=== PATIENT | female | born 1975 | race Caucasian/White ===

== ENCOUNTER 2024-03-24 13:17 | Inpatient (IN) ==
--- NOTE | 2024-03-24 13:28 | ED Triage Note ---
Date of Service March 24, 2024 Provider in Triage Author: Arthur Rawls History of Present Illness This patient was briefly evaluated while in triage. An abbreviated physical exam was performed. This patient is a 48-year-old Female who presents to the ED for evaluation of illness. The patient reports that she has been sick since Thursday. The patient was seen at her PCPs office, and referred to the emergency department for further evaluation. The patient reports that no testing was done in the office. The patient reports weakness and bodyaches, and also has also been short of breath. The patient was 85% on room air at her PCPs office. It is currently on 2 L O2 via nasal cannula after being transferred here from EMS. Patient does have a history of asthma. Physical Exam CONSTITUTIONAL: Healthy and well nourished. HEENT: No scleral icterus or conjunctival injection. NECK: Full active range of motion without discomfort. LYMPHATICS: No cervical chain adenopathy. RESPIRATORY: Lung sounds are distant with crackles. CARDIOVASCULAR: Regular rate and rhythm with no murmurs, rubs or gallops. INTEGUMENTARY: No rash or other significant dermatologic conditions noted. HEMATOLOGIC: No ecchymosis or petechiae. PSYCHIATRIC: Positive affect. NEUROLOGIC: No focal neurologic deficits noted. Initial orders for labs and / or imaging were placed and patient was placed in the waiting area until a bed is available. Please see further documentation for the full ED course.
[2024-03-24] MEDS: ACETAMINOPHEN 500 MG TAB PO STA (14:15)
[2024-03-24 14:30] LABS: Basophils # (auto) 0.01 K/uL (0.00-0.20); Basophils % (auto) 0.1 %; Hematocrit (blood only) 39.5 % (37.0-47.0); Hemoglobin 13.2 g/dl (12.0-16.0); Immature Granulocytes # (auto) 0.05 K/uL (0.01-0.20); Immature Granulocytes % (auto) 0.5 %; Lymphocytes # (auto) 0.74 K/uL (1.20-3.40); Lymphocytes % (auto) 7.8 %; Mean Corpuscular Hemoglobin 31.2 pg (25.0-34.0); Mean Corpuscular Hgb Conc 33.4 g/dL (32.0-36.0); Mean Corpuscular Volume 93.4 fL (80.0-100.0); Mean Platelet Volume 10.4 fL (9.4-12.4); Monocytes # (auto) 0.72 K/uL (0.11-0.59); Monocytes % (auto) 7.6 %; Neutrophils # (auto) 7.98 K/uL (1.40-6.50); Platelet Count 192 K/uL (130-400); RDW Coefficient of Variation 13.8 % (11.5-14.5); RDW Standard Deviation 47.4 fL (36.4-46.3); Red Blood Count 4.23 M/uL (4.20-5.40)
[2024-03-24 14:46] LABS: Anion Gap 8 (3-11); BUN Creatinine Ratio 15.7 (10-20); Blood Urea Nitrogen 13 mg/dl (6-23); Calcium 8.5 mg/dl (8.6-10.3); Carbon Dioxide 23 mmol/L (21-32); Chloride 108 mmol/L (98-107); Glucose 130 mg/dl (70-99(Fasting)); Potassium 4.1 mmol/L (3.5-5.1); Sodium 139 mmol/L (136-145)
[2024-03-24 15:15] LABS: Adenovirus PCR Not Detected (NotDetected); Bordetella parapertussis PCR Not Detected (NotDetected); Bordetella pertussis PCR Not Detected (NotDetected); Chlamydia pneumoniae PCR Not Detected (NotDetected); Coronavirus 229E PCR Not Detected (NotDetected); Coronavirus CoV-2 (COVID19)PCR Not Detected (NotDetected); Coronavirus HKU1 PCR Not Detected (NotDetected); Coronavirus NL63 PCR Not Detected (NotDetected); Coronavirus OC43PCR Not Detected (NotDetected); Human Metapneumovirus PCR DETECTED (NotDetected); Influenza A PCR Not Detected (NotDetected); Influenza B PCR Not Detected (NotDetected); Mycoplasma pneumoniae PCR Not Detected (NotDetected); Parainfluenza Virus 1 PCR Not Detected (NotDetected); Parainfluenza Virus 2 PCR Not Detected (NotDetected); Parainfluenza Virus 3 PCR Not Detected (NotDetected); Parainfluenza Virus 4 PCR Not Detected (NotDetected); Respiratory Syncytial VirusPCR Not Detected (NotDetected); Rhinovirus/Enterovirus PCR Not Detected (NotDetected)
[2024-03-24] MEDS: ALBUT/IPRATROP 3MG/0.5MG NEB 3 ML VIAL NEB STA ×2 (16:09→18:18)
[2024-03-24] MEDS: BENZONATATE 100 MG CAPSULE PO ONE (16:10)
[2024-03-24] MEDS: SODIUM CHLORIDE 0.9% 1,000 ML IV ONE (16:10)
[2024-03-24] MEDS: dexAMETHasone**PF** 10 MG/ML VIAL IV ONE (16:10)
[2024-03-24 16:38] LABS: Albumin Level 4.2 gm/dl (3.4-5.0); Bilirubin Direct 0.1 mg/dl (0-0.2); Bilirubin,Total 0.4 mg/dl (0.2-1.0); Magnesium 1.9 mg/dl (1.7-2.4)
[2024-03-24 16:43] LABS: Alanine Aminotransferase 11 U/L (7-52); Alkaline Phosphatase 80 U/L (34-104); Aspartate Aminotransferase 16 U/L (13-39)
[2024-03-24 16:47] LABS: Troponin I High Sensitivity 10.2 pg/ml (0-14)
--- NOTE | 2024-03-24 16:58 | XRay Report ---
EXAM: XR chest 1V portable CLINICAL HISTORY: SOB BRM/SDM. TECHNIQUE: X-ray images of the chest were obtained in frontal AP projection. COMPARISON: No prior studies are available for comparison. FINDINGS: Pulmonary Parenchyma: There is evidence of bilateral mid and lower zone patchy alveolar opacities, more significant on the left side. No evidence of pleural effusion or pleural thickening. Heart and Mediastinum: Heart size is enlarged and shows hilar congestion and upper lobe diversion. Bony Thorax: Bony thorax appears intact without fractures or deformities. Soft Tissues: Soft tissues overlying the chest wall are unremarkable. IMPRESSION: 1. Bilateral upper and lower multiple patchy alveolar opacities. 2. Cardiomegaly with bilateral hilar congestion and upper lobe diversion raising concern for pulmonary edema with differential possibility of bronchopneumonia. Clinical correlation and follow-up are advised. [facility] ER was called at [phone] at 3:53 PM MODELING TEACHER, 03/24/2024 and Rosa Isela, the nurse was informed regarding the presence of significant medical medical findings. Electronically signed by Nkechi Claire 03-24-2024 4:57 PM
[2024-03-24] MEDS: MAGNESIUM SULFATE / D5W 1 GM/100 ML BAG IV STA (17:08)
[2024-03-24] MEDS: KETOROLAC TROMETHAMINE 15 MG/ML VIAL IV ONE (18:18)
[2024-03-24] MEDS: SODIUM CHLORIDE 0.9% 1,000 ML IV SCH (18:18)
--- NOTE | 2024-03-24 18:20 | Emergency Department Note ---
Impression & Plan Dyspnea, Hypoxia, URI (upper respiratory infection), Asthma exacerbation ED Provider Note ED Provider Note NAME: ALYSA ABEBE AGE:48 SEX: Female : 1975 ARRIVES VIA: private vehicle INFORMANT: Patient ED PROVIDER(s): Nighat Kirk DO CHIEF COMPLAINT: Shortness of breath, cough HPI: This is a 48-year-old female who presents emergency department due to concern for increased shortness of breath and worsening cough/cold symptoms. Patient states she first began feeling ill last weekend with some increased fatigue. She states that over the week she began to develop nasal congestion, rhinorrhea, and cough. She states only mild sore throat. She also noticed decreased appetite and some loose stools/diarrhea. She was having fevers at home as high as 104 Fahrenheit. She states possible sick contact over the holidays with other friends. Patient does have a history of asthma and does use her inhalers. No prior history of pneumonia, no prior hospitalization for her asthma. No recent travel, no leg swelling. Patient states she has been using Tylenol and Advil at home. PAST MEDICAL HISTORY:See Below PAST SURGICAL HISTORY:See Below FAMILY HISTORY:See Below SOCIAL HISTORY:See Below HOME MEDICATIONS:See Below ALLERGIES:See Below VITALS:See Below PHYSICAL EXAMINATION: GENERAL: alert, ill appearing, well nourished, no distress, non-toxic EYE EXAM: normal conjunctiva, PERRL and EOM's grossly intact OROPHARYNX: no exudate, no erythema, lips, buccal mucosa, and tongue normal and mucous membranes are moist NECK: supple, no nuchal rigidity, no adenopathy, non-tender LUNGS: Clear but decreased to auscultation. Normal chest wall mechanics, no w/r/r HEART: no murmurs, S1 normal and S2 normal ABDOMEN: abdomen soft, non-tender, normo-active bowel sounds, no masses, no rebound or guarding. BACK: Back is symmetrical on inspection and there is no deformity, no midline tenderness, no CVA tenderness. SKIN: no rashes, petechiae, orbruising UPPER EXTREMITIES: upper extremities are grossly normal. FROM, nml pulses b/l. LOWER EXTREMITIES: No pitting edema. FROM, nml pulses b/l. NEURO EXAM: Normal sensorium, cranial nerves II-XII grossly intact, normal speech, no facial droop,nogross weakness of arms, no gross weakness of legs. Gross sensation intact. No ataxia. Vital Signs: reviewed and remarkable Differential Diagnosis: pneumonia, bronchitis, COPD/Asthma exacerbation, pneumothorax, pulmonary embolism, congestive heart failure, acute coronary syndrome, as well as others were considered MEDICAL DECISION MAKING: This is a 48-year-old female who presents to the emergency department due to concern for worsening weakness, cough, shortness of breath, and URI symptoms over the last 5 days. Patient noted to be febrile on arrival and hypoxic and was placed on oxygen via nasal cannula. Labs drawn and sent, IV established, nasal swab obtained at bedside and patient monitored on telemetry. By the time of evaluation, patient had already been given IV Tylenol additionally for the fever. Nasal swab positive for human metapneumovirus. Chest x-ray added on interpreted by me at bedside. Additional LFTs and troponin added. Patient given DuoNeb here along with Tessalon Perle, IV fluids, and IV Decadron. Patient reported no improvement following this and on ambulatory trial desatted to 89% while still on oxygen. Given concern for likely asthma exacerbation from the upper respiratory infection contributing to her hypoxia and other systemic symptoms, case discussed with the hospitalist team for additional evaluation and management. I do not suspect occult PE, pericarditis/myocarditis, pericardial effusion, or acute vascular emergency. Consultation(s): 1817: Discussed with Dr. Polk, [facility] hospitalist team for additional evaluation and mgmt. ER Treatment Provided: See below Diagnostics Interpreted By Me: -Cardiac Monitoring: An order was placed for continuous cardiac monitoring. The monitor shows a rate of 86 with normal sinus rhythm. -Laboratory studies: As stated above and show below. -Imaging studies: cxr: No cardiomegaly, no pleural effusion, no focal consolidation, no wide mediastinum Triage Nursing Note Reviewed Prior/Outside Records Reviewed Past Med/Surg History Problem List Acid reflux Hypotension Obesity Insomnia Acute hypoxic respiratory failure Human metapneumovirus (hMPV) pneumonia Tobacco use Asthma PT DENIES ASTHMA, REPORTS SLEEP APNEA Sleep apnea CPAP Fibromyalgia Medical History History of depression History of asthma Fibromyalgia Asthma exacerbation Balance problem Right lumbar radiculopathy Lumbosacral radiculopathy Radicular leg pain Endometriosis Migraine without status migrainosus Genital warts History of fibromyalgia History of kidney infection Headache Headache Psoriasis Migraine without status migrainosus Headache Endometriosis Restless legs syndrome Postconcussion syndrome Pelvic pain Numbness in both legs Disc degeneration, lumbar Cognitive disorder History of heart attack X2 "MILD" - YEARS AGO - NO HX CARDIAC CATH/NO HX STENT(S) Migraines Psoriasis History of kidney stones Hiatal hernia DDD (degenerative disc disease), cervical Anxiety Family history of reaction to anesthesia GRANDFATHER - HAD HARD TIME REGROUPING HIMSELF AFTER ANESTHESIA, "HE WOULD LOSE TRACK OF DAYS" Depression Degeneration of intervertebral disc of cervical region Hyperlipidemia Surgical History S/P laparoscopic surgery HX 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 Status post incision and drainage HX of Bartholin's gland abscess Of skin abscess of neck Status post abdominal hysterectomy and right salpingo-oophorectomy HX Family History Grandfather (Paternal) S/P bypass graft of extremity Diabetes Other Arthritis Cancer Dyslipidemia Gastric ulcer Heart disease Hypertension Social History Smoking Status: Current some day smoker Tobacco Type: Cigarettes Cigarettes Per Day: 10; Second Hand Exposure: No; Do You Dip or Chew Tobacco: No; Tobacco Cessation Education Requested by Patient: No Hx Alcohol Use: No Hx Substance Use: No Preferred Language: Sammarinese Communication Ability: Effective Business Development Officer Required: No Beliefs That Will Affect Care: None marital status: Current Living Situation: Parent Current Living Situation Comment: Lives in an apartment attached to parents' home current occupational status: disabled Other Information That Helps Us Care for You: No Feels Safe at Home: Yes Safety Concerns: Feels Safe At This Time Assistive Devices: CPAP and Glasses Allergies Allergies Allergy/AdvReac Type Severity Reaction Status Date / Time cephalexin Allergy Intermediate Rash Verified 03/24/24 20:44 [From Panixine DisperDose] metaxalone Allergy Intermediate Rash Verified 03/24/24 20:44 naproxen Allergy Unknown Rash, Verified 03/24/24 20:44 itchy and nausea pseudoephedrine AdvReac Unknown "heart Verified 03/24/24 20:44 races" Home Meds Home Medications Medication Instructions Recorded Confirmed aspirin 81 mg tablet,delayed 81 mg PO QAM 04/28/18 03/24/24 release buspirone 30 mg tablet 30 mg PO BID 04/28/18 03/24/24 ibuprofen 200 mg tablet 600 mg PO QPM 04/28/18 03/24/24 omeprazole 40 mg capsule,delayed 40 mg PO QAM 04/28/18 03/24/24 release pregabalin 300 mg capsule 300 mg PO BID 04/28/18 03/24/24 azelastine 137 mcg (0.1 %) nasal 2 sprays intranasal BID #1 mL 10/14/18 03/24/24 spray fluticasone propionate 50 2 sprays intranasal BID 10/14/18 03/24/24 mcg/actuation nasal spray,suspension sertraline 100 mg tablet 250 mg PO QAM 10/14/18 03/24/24 atorvastatin 20 mg tablet 20 mg PO QPM 10/19/18 03/24/24 bupropion HCl 100 mg tablet,12 hr 100 mg PO DAILY 03/19/23 03/24/24 sustained-release (Wellbutrin SR) Previous Rx's Medication Instructions Recorded Shower Chair #1 ea 09/11/22 meclizine 25 mg tablet 25 mg PO TID PRN dizziness 90 days 03/19/23 #90 tabs rimegepant 75 mg disintegrating 75 mg PO DAILY PRN migraine 03/19/23 tablet (Nurtec ODT) headache #8 tabs galcanezumab-gnlm 120 mg/mL 120 mg subcut ONCE #1 mL 03/25/23 subcutaneous pen injector (Emgality Pen) galcanezumab-gnlm 120 mg/mL 240 mg (2 mL) subcut ONCE #2 mL 03/25/23 subcutaneous syringe (Emgality) topiramate 200 mg tablet 200 mg PO BID #60 tabs 10/23/23 verapamil 240 mg tablet,extended 240 mg PO BID #60 tabs 10/23/23 release Results & Data (ED) Vital Signs Vital Signs - 24 hr 03/24/24 13:24 03/24/24 14:12 03/24/24 15:02 Temperature 38.6 C H 36.8 C Temperature Source Temporal Artery Scan Oral Pulse Rate 98 H Pulse Rate [Finger] 95 H 88 Pulse Rhythm [Finger] Pulse Strength [Finger] Respiratory Rate 22 22 24 Respiratory Effort / Characteristics Non-Labored Respiratory Depth Normal Respiratory Pattern Blood Pressure 127/75 Blood Pressure [Left Arm] 127/67 Blood Pressure Mean 92 Blood Pressure Mean [Left Arm] 87 Blood Pressure Position [Left Arm] Lying Pulse Oximetry 90 91 94 Oxygen Delivery Method Nasal Cannula Nasal Cannula Nasal Cannula Oxygen Flow Rate 2 4 3 Sepsis Recent Fever Within 48 Hours Yes Sepsis New/Unexplained Change in Mental Status No Sepsis Action Taken by Nursing No Action Required Pulse Oximetry Post Tiitration 03/24/24 15:14 03/24/24 17:00 03/24/24 17:30 Temperature Temperature Source Pulse Rate 89 Pulse Rate [Finger] 89 Pulse Rhythm [Finger] Pulse Strength [Finger] Respiratory Rate 22 Respiratory Effort / Characteristics Respiratory Depth Respiratory Pattern Blood Pressure Blood Pressure [Left Arm] 110/61 Blood Pressure Mean Blood Pressure Mean [Left Arm] 77 Blood Pressure Position [Left Arm] Sitting Pulse Oximetry 97 95 Oxygen Delivery Method Nasal Cannula Nasal Cannula Oxygen Flow Rate 3 3 Sepsis Recent Fever Within 48 Hours Sepsis New/Unexplained Change in Mental Status Sepsis Action Taken by Nursing Pulse Oximetry Post Tiitration 89 L 03/24/24 19:00 Temperature Temperature Source Pulse Rate Pulse Rate [Finger] 84 Pulse Rhythm [Finger] Regular Pulse Strength [Finger] Normal Respiratory Rate 18 Respiratory Effort / Characteristics Non-Labored Spontaneous Respiratory Depth Normal Respiratory Pattern Regular Blood Pressure Blood Pressure [Left Arm] 94/61 L Blood Pressure Mean Blood Pressure Mean [Left Arm] 72 Blood Pressure Position [Left Arm] Semi-fowlers Pulse Oximetry 92 Oxygen Delivery Method Nasal Cannula Oxygen Flow Rate 3 Sepsis Recent Fever Within 48 Hours Sepsis New/Unexplained Change in Mental Status Sepsis Action Taken by Nursing Pulse Oximetry Post Tiitration Laboratory Data 03/24/24 14:09 03/24/24 14:09 Lab Results 03/24/24 03/24/24 Range/Units 14:09 18:39 WBC 9.50 (4.8-10.8) K/ul RBC 4.23 (4.20-5.40) M/uL Hgb 13.2 (12.0-16.0) g/dl Hct 39.5 (37.0-47.0) % MCV 93.4 (80.0-100.0) fL MCH 31.2 (25.0-34.0) pg MCHC 33.4 (32.0-36.0) g/dL RDW Std Deviation 47.4 H (36.4-46.3) fL RDW Coeff of Nigel 13.8 (11.5-14.5) % Plt Count 192 (130-400) K/uL MPV 10.4 (9.4-12.4) fL Immature Gran % (Auto) 0.5 % Neut % (Auto) 84.0 % Lymph % (Auto) 7.8 % [place] % (Auto) 7.6 % Eos % (Auto) 0.0 % Baso % (Auto) 0.1 % Neut # (Auto) 7.98 H (1.40-6.50) K/uL Lymph # (Auto) 0.74 L (1.20-3.40) K/uL [place] # (Auto) 0.72 H (0.11-0.59) K/uL Eos # (Auto) 0.00 (0.00-0.50) K/uL Baso # (Auto) 0.01 (0.00-0.20) K/uL Immature Gran # (Auto) 0.05 (0.01-0.20) K/uL Sodium 139 (136-145) mmol/L Potassium 4.1 (3.5-5.1) mmol/L Chloride 108 H (98-107) mmol/L Carbon Dioxide 23 (21-32) mmol/L Anion Gap 8 (3-11) BUN 13 (6-23) mg/dl Creatinine 0.83 (0.6-1.2) mg/dl Est Cr Clr Drug Dosing Not Reportable eGFR 85.83 BUN/Creatinine Ratio 15.7 (10-20) Glucose 130 H (70-99(Fasting)) mg/dl Calcium 8.5 L (8.6-10.3) mg/dl Magnesium 1.9 (1.7-2.4) mg/dl Total Bilirubin 0.4 (0.2-1.0) mg/dl Direct Bilirubin 0.1 (0-0.2) mg/dl AST 16 (13-39) U/L ALT 11 (7-52) U/L Alkaline Phosphatase 80 (34-104) U/L Troponin I High Sens 10.2 (0-14) pg/ml B-Natriuretic Peptide 112 H (0-100) pg/ml Total Protein 8.0 (6.0-8.3) gm/dl Albumin 4.2 (3.4-5.0) gm/dl Adenovirus (PCR) Not Detected (NotDetected) B. pertussis DNA (PCR) Not Detected (NotDetected) B.parapertussis DNA PCR Not Detected (NotDetected) C. pneumoniae DNA (PCR) Not Detected (NotDetected) Coronavirus OC43 (PCR) Not Detected (NotDetected) Coronavirus HKU1 (PCR) Not Detected (NotDetected) Coronavirus 229E (PCR) Not Detected (NotDetected) SARS-CoV-2 (PCR) Not Detected (NotDetected) Coronavirus NL63 (PCR) Not Detected (NotDetected) Human Metapneumovir PCR DETECTED A (NotDetected) Influenza Type A (PCR) Not Detected (NotDetected) Influenza Type B (PCR) Not Detected (NotDetected) M. pneumoniae (PCR) Not Detected (NotDetected) Parainfluenza 1 (PCR) Not Detected (NotDetected) Parainfluenza 2 (PCR) Not Detected (NotDetected) Parainfluenza 3 (PCR) Not Detected (NotDetected) Parainfluenza 4 (PCR) Not Detected (NotDetected) RSV (PCR) Not Detected (NotDetected) Entero/Rhino (PCR) Not Detected (NotDetected) Administered Medications Atorvastatin Calcium (Atorvastatin 20 Mg Tab) 20 mg PO QPM ADRI Stop: 04/23/24 21:14 Last Admin: 03/24/24 22:07 Dose: 20 mg Documented By: NOAM Buspirone HCl (Buspirone 15 Mg Tab) 30 mg PO BID ADRI Stop: 04/23/24 21:14 Last Admin: 03/24/24 22:07 Dose: 30 mg Documented By: NOAM Enoxaparin Sodium (Enoxaparin Inj 40 Mg/0.4 Ml Syr) 40 mg SQ HS ADRI Stop: 04/23/24 22:59 Last Admin: 03/24/24 23:06 Dose: Not Given Documented By: NOAM Miscellaneous (Patient's Height &/Or Weight Needed) 1 each N/A Q2H ADRI Stop: 04/23/24 21:44 Last Admin: 03/24/24 23:32 Dose: 1 each Documented By: NOAM Pregabalin (Pregabalin 150 Mg Cap) 300 mg PO BID ADRI Stop: 04/23/24 21:14 Last Admin: 03/24/24 22:06 Dose: 300 mg Documented By: NOAM Topiramate (Topiramate 100 Mg Tab) 200 mg PO BID ADRI Stop: 04/23/24 21:14 Last Admin: 03/24/24 22:07 Dose: 200 mg Documented By: NOAM Verapamil HCl (Verapamil Hcl 120 Mg Tabcr) 120 mg PO BID ADRI Stop: 04/23/24 21:14 Last Admin: 03/24/24 22:08 Dose: 120 mg Documented By: NOAM Discontinued Medications Acetaminophen (Acetaminophen 500 Mg Tab) 1,000 mg PO NOW STA Stop: 03/24/24 13:29 Last Admin: 03/24/24 14:15 Dose: 1,000 mg Documented By: NANCY Albuterol (Albut/Ipratrop 3mg/0.5mg Neb 3 Ml Vial) 3 ml NEB NOW STA; Protocol Stop: 03/24/24 16:07 Last Admin: 03/24/24 16:09 Dose: 3 ml Documented By: SUYAPA Albuterol (Albut/Ipratrop 3mg/0.5mg Neb 3 Ml Vial) 3 ml NEB NOW STA; Protocol Stop: 03/24/24 18:03 Last Admin: 03/24/24 18:18 Dose: 3 ml Documented By: QGV Benzonatate (Benzonatate 100 Mg Capsule) 100 mg PO NOW ONE Stop: 03/24/24 16:07 Last Admin: 03/24/24 16:10 Dose: 100 mg Documented By: SUYAPA Dexamethasone Sodium Phosphate (DexamethasonePf 10 Mg/Ml Vial) 10 mg IV NOW ONE Stop: 03/24/24 16:07 Last Admin: 03/24/24 16:10 Dose: 10 mg Documented By: SUYAPA Sodium Chloride (Nss) 1,000 mls @ 999 mls/hr IV .Q1H1M ONE Stop: 03/24/24 16:58 Last Infusion: 03/24/24 17:09 Dose: Infused Documented By: Admin: 03/24/24 16:10 Dose: 999 mls/hr Documented By: SUYAPA Magnesium Sulfate/Dextrose (Magnesium Sulfate / D5w) 1 gm in 100 mls @ 100 mls/hr IV NOW STA Stop: 03/24/24 17:51 Last Infusion: 03/24/24 18:46 Dose: Infused Documented By: Admin: 03/24/24 17:08 Dose: 100 mls/hr Documented By: QGV Sodium Chloride (Nss) 1,000 mls @ 80 mls/hr IV .[id number] ADRI Stop: 03/25/24 18:14 Last Admin: 03/24/24 18:18 Dose: 80 mls/hr Documented By: QGV Ketorolac Tromethamine (Ketorolac Tromethamine 15 Mg/Ml Vial) 10 mg IV NOW ONE Stop: 03/24/24 18:03 Last Admin: 03/24/24 18:18 Dose: 10 mg Documented By: QGV Imaging Data Radiologist's Impression: Chest X-Ray 03/24/24 15:57 EXAM: XR chest 1V portable CLINICAL HISTORY: SOB BRM/SDM. TECHNIQUE: X-ray images of the chest were obtained in frontal AP projection. COMPARISON: No prior studies are available for comparison. FINDINGS: Pulmonary Parenchyma: There is evidence of bilateral mid and lower zone patchy alveolar opacities, more significant on the left side. No evidence of pleural effusion or pleural thickening. Heart and Mediastinum: Heart size is enlarged and shows hilar congestion and upper lobe diversion. Bony Thorax: Bony thorax appears intact without fractures or deformities. Soft Tissues: Soft tissues overlying the chest wall are unremarkable. IMPRESSION: 1. Bilateral upper and lower multiple patchy alveolar opacities. 2. Cardiomegaly with bilateral hilar congestion and upper lobe diversion raising concern for pulmonary edema with differential possibility of bronchopneumonia. Clinical correlation and follow-up are advised. 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 Electronically signed by Nkechi Claire 03-24-2024 4:57 PM Discharge Plan Visit Data Chief Complaint: Illness Stated Complaint: ILLNESS ED Provider: Nighat Kirk Discharge Problem: Dyspnea, Hypoxia, URI (upper respiratory infection), Asthma exacerbation Patient Disposition: Admitted As Inpatient Discharge Instructions Interventions: ED Discharge Assessment Last Done: 03/24/24 20:29
--- NOTE | 2024-03-24 19:01 | History & Physical Report ---
Date of Service March 24, 2024 Assessment & Plan (1) Acute hypoxic respiratory failure: Plan: -2/2 metapneumovirus likely given lab results and made worse by hx of asthma and possible restrictive pathology from obesity -differential includes: heart failure (less likely given volume status), asthma exaccerbation (less likely given findings), overlying bacterial pneumonia (possible), flash pulmonary edema, PE (less likely given imaging findings), VA (unlikely given no chest pain and EKG findings) Plan: -supportive measures -check BNP, procalcitonin (if positive or not improving given fever/green sputum will start abx) -duonebs, prednisone 40 mg x5 days -monitor glucose given steroid use -aim for net even fluid status (2) Tobacco use: Plan: -10 cigarettes a day Plan: -prn nicotine patch (3) Human metapneumovirus (hMPV) pneumonia: Plan: -likely 2/2 exposure to sick contacts -likely predisposed to worsening disease 2/2 obesity and hx of THOMAS/asthma Plan: -supportive measures as above (4) Asthma: Plan: -see above, duonebs and prednisone 40 mg x5 days (5) Sleep apnea: Plan: -likely predisposes to worse disease Plan: -home CPAP (6) Fibromyalgia: Plan: -personally reviewed home medications with patient, on significant number of medications Plan: -will cut verapamil dose in half given illness -continue home psych meds (7) Hypotension: Plan: -patient asymptomatic, MAP 71, however drop from earlier -suspect BP may run low in setting of significant medication use for fibromyalgia Plan: -monitor (8) Acid reflux: Plan: -continue home omeprazole (9) Obesity: Plan: -f/u with weight management outpatient (10) Insomnia: Plan: -melatonine prn Plan Feeding/fluids: regular Analgesia: tylenol Sedation: none Thromboprophylaxis: lovenox Head up position: 30 degrees Ulcer prophylaxis: none Glycemic control: checks, no insulin Spontaneous breathing trial: not needed Bowel care: start miralax Indwelling catheter removal: not present Deescalation of antibiotics: not on abx I spent a total of 80 minutes coordinating, documenting, and providing care for this patient excluding time spent in the performance of separately billed services. Admission and Anticipated Discharge Date Anticipated date of discharge: 03/26/24 History of Present Illness Chief Complaint: Shortness of breath Primary Care Provider: Rogelio Moreira MD 48-year-old female with past medical history of asthma, prediabetes, obesity, fibromyalgia, GERD, hyperlipidemia, sleep apnea who presents for shortness of breath. Shortness of breath has been ongoing for the past few days. At first she thought this was something that was going to get better on its own and decided not to come in but then it got worse. Has been around sick people. Smokes half a pack of tobacco daily. Other than shortness of breath she has also been feeling weak and fatigued. Denies chest pain nausea vomiting or any other symptoms. Is on quite a few medications for her fibromyalgia. Allergies Allergy/AdvReac Type Severity Reaction Status Date / Time cephalexin Allergy Intermediate Rash Verified 03/19/23 11:00 [From Panixine DisperDose] metaxalone Allergy Intermediate Rash Verified 03/19/23 11:00 naproxen Allergy Unknown Rash, Verified 03/19/23 11:00 itchy and nausea pseudoephedrine AdvReac Unknown "heart Verified 03/19/23 11:00 races" Home Medications Medication Instructions Recorded Confirmed Type aspirin 81 mg tablet,delayed 81 mg PO QAM 04/28/18 03/24/24 History release buspirone 30 mg tablet 30 mg PO BID 04/28/18 03/24/24 History ibuprofen 200 mg tablet 600 mg PO QPM 04/28/18 03/24/24 History omeprazole 40 mg capsule,delayed 40 mg PO QAM 04/28/18 03/24/24 History release pregabalin 300 mg capsule 300 mg PO BID 04/28/18 03/24/24 History azelastine 137 mcg (0.1 %) nasal 2 sprays intranasal BID #1 mL 10/14/18 03/24/24 History spray fluticasone propionate 50 2 sprays intranasal BID 10/14/18 03/24/24 History mcg/actuation nasal spray,suspension sertraline 100 mg tablet 250 mg PO QAM 10/14/18 03/24/24 History atorvastatin 20 mg tablet 20 mg PO QPM 10/19/18 03/24/24 History Shower Chair #1 ea 09/11/22 03/24/24 Rx cyclobenzaprine 10 mg tablet 10 mg PO HS #30 tabs 09/11/22 03/19/23 Rx bupropion HCl 100 mg tablet,12 hr 100 mg PO DAILY 03/19/23 03/24/24 History sustained-release (Wellbutrin SR) meclizine 25 mg tablet 25 mg PO TID PRN dizziness 90 days 03/19/23 03/24/24 Rx #90 tabs rimegepant 75 mg disintegrating 75 mg PO DAILY PRN migraine 03/19/23 03/24/24 Rx tablet (Nurtec ODT) headache #8 tabs galcanezumab-gnlm 120 mg/mL 120 mg subcut ONCE #1 mL 03/25/23 03/24/24 Rx subcutaneous pen injector (Emgality Pen) galcanezumab-gnlm 120 mg/mL 240 mg (2 mL) subcut ONCE #2 mL 03/25/23 03/24/24 Rx subcutaneous syringe (Emgality) topiramate 200 mg tablet 200 mg PO BID #60 tabs 10/23/23 03/24/24 Rx verapamil 240 mg tablet,extended 240 mg PO BID #60 tabs 10/23/23 03/24/24 Rx release Past Med/Surg History Problem List (Updated 03/24/24 @ 19:46 by Arthur Polk MD) Acid reflux Hypotension Obesity Insomnia Acute hypoxic respiratory failure Human metapneumovirus (hMPV) pneumonia Tobacco use Asthma PT DENIES ASTHMA, REPORTS SLEEP APNEA Sleep apnea CPAP Fibromyalgia Medical History History of depression History of asthma Fibromyalgia Asthma exacerbation Balance problem Right lumbar radiculopathy Lumbosacral radiculopathy Radicular leg pain Endometriosis Migraine without status migrainosus Genital warts History of fibromyalgia History of kidney infection Headache Headache Psoriasis Migraine without status migrainosus Headache Endometriosis Restless legs syndrome Postconcussion syndrome Pelvic pain Numbness in both legs Disc degeneration, lumbar Cognitive disorder History of heart attack X2 "MILD" - YEARS AGO - NO HX CARDIAC CATH/NO HX STENT(S) Migraines Psoriasis History of kidney stones Hiatal hernia Acid reflux DDD (degenerative disc disease), cervical Anxiety Family history of reaction to anesthesia GRANDFATHER - HAD HARD TIME REGROUPING HIMSELF AFTER ANESTHESIA, "HE WOULD LOSE TRACK OF DAYS" Depression Degeneration of intervertebral disc of cervical region Hyperlipidemia Surgical History S/P laparoscopic surgery HX 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 Status post incision and drainage HX of Bartholin's gland abscess Of skin abscess of neck Status post abdominal hysterectomy and right salpingo-oophorectomy HX Family History Grandfather (Paternal) S/P bypass graft of extremity Diabetes Other Arthritis Cancer Dyslipidemia Gastric ulcer Heart disease Hypertension Social History Smoking Status: Current every day smoker Tobacco Type: Cigarettes Cigarettes Per Day: 10CIGS PER DAY; Second Hand Exposure: No; Do You Dip or Chew Tobacco: No; Hx Alcohol Use: No Hx Substance Use: No Preferred Language: Arabic Communication Ability: Effective Sitecore Developer Required: No Beliefs That Will Affect Care: None marital status: Current Living Situation: Alone current occupational status: disabled Feels Safe at Home: Yes Assistive Devices: CPAP and Glasses Review of Systems Review of Systems: CONSTITUTIONAL: feels uncomfortable, fevers EYES: Patient denies any visual symptoms. EARS, NOSE, AND THROAT: No difficulties with hearing. No symptoms of rhinitis or sore throat. CARDIOVASCULAR: Patient denies chest pains, palpitations, orthopnea and paroxysmal nocturnal dyspnea. RESPIRATORY: SOB. GI: No nausea, vomiting, diarrhea, constipation, abdominal pain, hematochezia or melena. : No urinary hesitancy or dribbling. No nocturia or urinary frequency. No abnormal urethral discharge. MUSCULOSKELETAL: weak diffusely NEUROLOGIC: No chronic headaches, no seizures. Patient denies numbness, tingling or weakness. PSYCHIATRIC: Patient denies problems with mood disturbance. No problems with anxiety. ENDOCRINE: No excessive urination or excessive thirst. DERMATOLOGIC: Patient denies any rashes or skin changes. Physical Exam Physical Exam: Gen: A&O x3 slightly uncomfortable HEENT: NCAT, EOMI, not icteric. External ears normal. No rhinorrhea. Moist mucous membranes. Neck: Supple, full range of motion, no observable masses, No meningeal sign. JVP not elevated Lungs: expiratory wheezing and rhonchi noted bilaterally CV: RRR, no edema. Abdomen: Soft, nondistended, No rebound tenderness. MSK: trace 1+ nonpitting edema bilaterally Skin: No rashes, petechiae, lesions. Normal color per patient. Neuro: Normal Gait, Grossly intact. Psych: Appropriate for situation. Results & Data Results & Data Vital Signs (Past 12 Hours) Vital Signs Temp Pulse Pulse Resp BP BP Pulse Ox 03/24/24 17:30 89 22 110/61 95 03/24/24 17:00 97 03/24/24 15:14 89 03/24/24 15:02 36.8 C 88 24 127/67 94 03/24/24 14:12 95 H 22 91 03/24/24 13:24 38.6 C H 98 H 22 127/75 90 O2 Del Method O2 Flow Rate 03/24/24 17:30 Nasal Cannula 3 03/24/24 17:00 Nasal Cannula 3 03/24/24 15:14 03/24/24 15:02 Nasal Cannula 3 03/24/24 14:12 Nasal Cannula 4 03/24/24 13:24 Nasal Cannula 2 Laboratory Results Laboratory Results WBC 9.50 K/ul (4.8-10.8) 03/24/24 14:09 RBC 4.23 M/uL (4.20-5.40) 03/24/24 14:09 Hgb 13.2 g/dl (12.0-16.0) 03/24/24 14:09 Hct 39.5 % (37.0-47.0) 03/24/24 14:09 MCV 93.4 fL (80.0-100.0) 03/24/24 14:09 MCH 31.2 pg (25.0-34.0) 03/24/24 14:09 MCHC 33.4 g/dL (32.0-36.0) 03/24/24 14:09 RDW Std Deviation 47.4 fL (36.4-46.3) H 03/24/24 14:09 RDW Coeff of Nigel 13.8 % (11.5-14.5) 03/24/24 14:09 Plt Count 192 K/uL (130-400) 03/24/24 14:09 MPV 10.4 fL (9.4-12.4) 03/24/24 14:09 Immature Gran % (Auto) 0.5 % 03/24/24 14:09 Neut % (Auto) 84.0 % 03/24/24 14:09 Lymph % (Auto) 7.8 % 03/24/24 14:09 Prowers % (Auto) 7.6 % 03/24/24 14:09 Eos % (Auto) 0.0 % 03/24/24 14:09 Baso % (Auto) 0.1 % 03/24/24 14:09 Neut # (Auto) 7.98 K/uL (1.40-6.50) H 03/24/24 14:09 Lymph # (Auto) 0.74 K/uL (1.20-3.40) L 03/24/24 14:09 Prowers # (Auto) 0.72 K/uL (0.11-0.59) H 03/24/24 14:09 Eos # (Auto) 0.00 K/uL (0.00-0.50) 03/24/24 14:09 Baso # (Auto) 0.01 K/uL (0.00-0.20) 03/24/24 14:09 Immature Gran # (Auto) 0.05 K/uL (0.01-0.20) 03/24/24 14:09 Sodium 139 mmol/L (136-145) 03/24/24 14:09 Potassium 4.1 mmol/L (3.5-5.1) 03/24/24 14:09 Chloride 108 mmol/L (98-107) H 03/24/24 14:09 Carbon Dioxide 23 mmol/L (21-32) 03/24/24 14:09 Anion Gap 8 (3-11) 03/24/24 14:09 BUN 13 mg/dl (6-23) 03/24/24 14:09 Creatinine 0.83 mg/dl (0.6-1.2) 03/24/24 14:09 Est Cr Clr Drug Dosing Not Reportable 03/24/24 14:09 eGFR 85.83 03/24/24 14:09 BUN/Creatinine Ratio 15.7 (10-20) 03/24/24 14:09 Glucose 130 mg/dl (70-99(Fasting)) H 03/24/24 14:09 Calcium 8.5 mg/dl (8.6-10.3) L 03/24/24 14:09 Magnesium 1.9 mg/dl (1.7-2.4) 03/24/24 14:09 Total Bilirubin 0.4 mg/dl (0.2-1.0) 03/24/24 14:09 Direct Bilirubin 0.1 mg/dl (0-0.2) 03/24/24 14:09 AST 16 U/L (13-39) 03/24/24 14:09 ALT 11 U/L (7-52) 03/24/24 14:09 Alkaline Phosphatase 80 U/L (34-104) 03/24/24 14:09 Troponin I High Sens 10.2 pg/ml (0-14) 03/24/24 14:09 B-Natriuretic Peptide 112 pg/ml (0-100) H 03/24/24 18:39 Total Protein 8.0 gm/dl (6.0-8.3) 03/24/24 14:09 Albumin 4.2 gm/dl (3.4-5.0) 03/24/24 14:09 Adenovirus (PCR) Not Detected (NotDetected) 03/24/24 14:09 B. pertussis DNA (PCR) Not Detected (NotDetected) 03/24/24 14:09 B.parapertussis DNA PCR Not Detected (NotDetected) 03/24/24 14:09 C. pneumoniae DNA (PCR) Not Detected (NotDetected) 03/24/24 14:09 Coronavirus OC43 (PCR) Not Detected (NotDetected) 03/24/24 14:09 Coronavirus HKU1 (PCR) Not Detected (NotDetected) 03/24/24 14:09 Coronavirus 229E (PCR) Not Detected (NotDetected) 03/24/24 14:09 SARS-CoV-2 (PCR) Not Detected (NotDetected) 03/24/24 14:09 Coronavirus NL63 (PCR) Not Detected (NotDetected) 03/24/24 14:09 Human Metapneumovir PCR DETECTED (NotDetected) A 03/24/24 14:09 Influenza Type A (PCR) Not Detected (NotDetected) 03/24/24 14:09 Influenza Type B (PCR) Not Detected (NotDetected) 03/24/24 14:09 M. pneumoniae (PCR) Not Detected (NotDetected) 03/24/24 14:09 Parainfluenza 1 (PCR) Not Detected (NotDetected) 03/24/24 14:09 Parainfluenza 2 (PCR) Not Detected (NotDetected) 03/24/24 14:09 Parainfluenza 3 (PCR) Not Detected (NotDetected) 03/24/24 14:09 Parainfluenza 4 (PCR) Not Detected (NotDetected) 03/24/24 14:09 RSV (PCR) Not Detected (NotDetected) 03/24/24 14:09 Entero/Rhino (PCR) Not Detected (NotDetected) 03/24/24 14:09 Impressions Chest X-Ray 03/24/24 15:57 EXAM: XR chest 1V portable CLINICAL HISTORY: SOB BRM/SDM. TECHNIQUE: X-ray images of the chest were obtained in frontal AP projection. COMPARISON: No prior studies are available for comparison. FINDINGS: Pulmonary Parenchyma: There is evidence of bilateral mid and lower zone patchy alveolar opacities, more significant on the left side. No evidence of pleural effusion or pleural thickening. Heart and Mediastinum: Heart size is enlarged and shows hilar congestion and upper lobe diversion. Bony Thorax: Bony thorax appears intact without fractures or deformities. Soft Tissues: Soft tissues overlying the chest wall are unremarkable. IMPRESSION: 1. Bilateral upper and lower multiple patchy alveolar opacities. 2. Cardiomegaly with bilateral hilar congestion and upper lobe diversion raising concern for pulmonary edema with differential possibility of bronchopneumonia. Clinical correlation and follow-up are advised. [facility] ER was called at [phone] at 3:53 PM CIVIL DESIGN TECHNICIAN, 03/24/2024 and Rosa Isela, the nurse was informed regarding the presence of significant medical medical findings. Electronically signed by Nkechi Claire 03-24-2024 4:57 PM Medications Administered Sodium Chloride (Nss) 1,000 mls @ 80 mls/hr IV .[id number] ADRI Stop: 03/25/24 18:14 Last Admin: 03/24/24 18:18 Dose: 80 mls/hr Documented By: QGV Code Status & VTE Plan Code Status full code, discussed with patient, would like to discuss further if needed VTE Prophylaxis Plan VTE Prophylaxis will be ordered: Yes (4) Asthma Asthma complication type: unspecified Asthma persistence: persistent Asthma severity: moderate Qualified Code(s): J45.40 - Moderate persistent asthma, uncomplicated (5) Sleep apnea Sleep apnea type: unspecified type Qualified Code(s): G47.30 - Sleep apnea, unspecified (7) Hypotension Hypotension type: hypotension due to hypovolemia Qualified Code(s): E86.1 - Hypovolemia (8) Acid reflux Esophagitis presence: without esophagitis Qualified Code(s): K21.9 - Gastro- esophageal reflux disease without esophagitis (9) Obesity Obesity type: drug-induced Obesity classification: unspecified obesity classification Serious obesity comorbidity presence: with serious comorbidity Qualified Code(s): 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
--- OUTSIDE RECORDS SUMMARY | 2024-03-24 20:00 | External Medical Summary | Summary of Care ---
Author Name Unknown Organization [facility] Address [address] [place] [address] Phone [phone] Care Team Providers Care Vehicle Detailer Name Role Phone Harish HOLMAN MD, Rogelio Jeffers Primary Care Provider [phone] Reason for Visit * Reason Onset Date Comments Advice 03/11/202403/11 tried to c all pt. Appt/knee pain Encounter Details Date Type Department Care Team (Late st Contact Info) Description 03/11/2024 Telephone Family Practice [facility], [place] [address] [place] [address] Dixon Almonte MD [address] [place] [address] Advice (03/11 tried to call pt. Appt/knee... Allergies Active Allergy Reactions Criticality Noted Date Comments Metaxalone 05/25/2013 Naproxen 05/25/2013 Panixine Disperdose Rash 02/28/2008 documented as of this encounter (statuses as of 03/21/2024) Medications BUSPIRONE HCL 30 MG PO TABS 1 TABLET TWICE DAILY 3 Active Aspirin 81 MG Tablet Take 1 Tablet by mouth. 6 Active meclizine (ANTIVERT) 25 MG Tablet Take 1 Tablet by mouth 3 times a day as needed. Active ibuprofen (MOTRIN) 600 MG Tablet Take 1 Tablet by mouth every 6 hours as needed. Active cyclobenzaprine (FLEXERIL) 10 MG Tablet Take 1 Tablet by mouth in the morning and 1 Tablet before bedtime. Active Pregabalin (LYRICA) 300 MG Capsule Take 1 Capsule by mouth in the morning and 1 Capsule before bedtime. Active topiramate (TOPAMAX) 200 MG Tablet Take 1 Tablet by mouth in the morning and 1 Tablet before bedtime. Active verapamil SR (ISOPTIN SR) 180 MG TBCR Take 240 mg by mouth. 1 twice daily Active sertraline (ZOLOFT) 100 MG Tablet Take 1 Tablet by mouth. 2 daily Active sertraline (ZOLOFT) 50 MG Tablet Take 1 Tablet by mouth in the morning. Active CPAP every night at bedtime . Active buPROPion HCl ER (XL) 300 MG Oral Tablet Extended Release 24 Hour (Wellbutrin XL) 3 Active Azelastine HCl 0.1 % Nasal Solution Administer 2 Sprays into each nostril in the morning and 2 Sprays before bedtime. 90 mL 3 3 Active Fluticasone Propionate 50 MCG/ACT Nasal Suspension Administer 2 Sprays into each nostril in the morning and 2 Sprays before bedtime. 96 g 3 3 Active Ventolin HFA 108 (90 Base) MCG/ACT Inhalation Aerosol Solution INHALE 2 PUFFS BY MOUTH EVERY 4 HOURS NEEDED FOR COUGH, SHORTNESS OF BREATH OR WHEEZING. 54 g 2 3 Active Budesonide-Formo terol Fumarate 80-4.5 MCG/ACT Inhalation Aerosol (Symbicort) Inhale 2 Puffs by mouth in the morning and 2 Puffs before bedtime. Rinse after. 10.2 g 8 3 Active Fluticasone-Salm eterol 100-50 MCG/ACT Inhalation Aerosol Powder Breath Activated (Wixela Inhub) Inhale 1 Puff by mouth in the morning and 1 Puff before bedtime. 180 Each 1 3 Active Atorvastatin Calcium 20 MG Oral Tablet (Lipitor) TAKE 1 TABLET BY MOUTH IN THE MORNING 90 Tablet 4 Active Famotidine 20 MG Oral Tablet (Pepcid) TAKE 1 TABLET BY MOUTH ONCE DAILY NEEDED FOR HEARTBURN 90 Tablet 4 Active Omeprazole 40 MG Oral Capsule Delayed Release (PriLOSEC) TAKE 1 CAPSULE BY MOUTH ONCE DAILY 1 HOUR BEFORE DINNER 90 Capsule 4 Active Naltrexone HCl 50 MG Oral Tablet (Revia)Indicatio ns:Abnormal weight gain,Class 2 severe obesity due to excess calories with serious comorbidity and body mass index (BMI) of 39.0 to 39.9 in adult (HCC) Take 0.5 Tablets by mouth 2 times a day. TAKE 1/2 (ONE-HALF) TABLET BY MOUTH ONCE DAILY FOR 7 DAYS THEN 1/2 (ONE-HALF) TWICE DAILY 30 Tablet 3 4 Active documented as of this encounter (statuses as of 03/21/2024) Active Problems Problem Noted Date Diagnosed Date Prediabetes 11/02/2023 Overview: Per Prediabetes protocol THOMAS (obstructive sleep apnea) 04/18/2021 Severe obesity with body mas s index (BMI) of 35.0 to 39.9 with serious comorbidity 04/18/2021 Snoring 09/10/2018 Restrictive pattern present on pulmonary functio n testing 09/10/2018 Tobacco use disorder 09/10/2018 DDD (degenerative disc disease), lumbar 02/12/20 17 Post concussion syndrome 02/11/2017 Carpal tunnel syndrome of right wrist 02/11/2017 Rhinitis, nonallergic 07/29/2016 ETD (eustachian tube dysfunction) 07/29/2016 Migraine variant 06/28/2008 GERD (gastroesophageal reflux disease) Fibromyalgia Depression with anxiety documented as of this encounter (statuses as of 03/21/2024) Resolved Problems Problem Noted Date Diagnosed Date Resolved Date Psoriasis 02/11/2017 02/02/2023 Cough 07/29/2016 05/07/2018 ADVANCE DIRECTIVE INFORMATION 12/18/2004 01/25/2024 Overview (12/18/2004): No, Advance Directive brochure offered , patient declined. documented as of this encounter (statuses as of 03/21/2024) Immunizations Name Administration Dates Next Due PPD 09/19/2013 documented as of this encounter Social History Tobacco Use Types Packs/Day Years Used Date Smoking Tobacco: Every Day Cigarettes 0.5 21 Smokeless Tobacco: Never Comments:pt reports using va por cigarette/no passive smoke Alcohol Use Standard Drinks/Week Comments No 0 (1 standard drink = 0.6 oz pur e alcohol) PHQ-2 Answer Date Recorded PHQ Adult Total Score 2 11/20/2021 Comments No Sex and Gender Information Value Date Recorded Sex Assigned at Not on file Legal Sex Female 7:07 AM EST Gender Identity Not on file Sexual Orientation Not on file Occupation Industry Job Start Date Job End Date Not on file Not on file Not on file Not on file documented as of this encounter Miscellaneous Notes * Telephone Encounter - Eliz Call OSA - 03/14/2024 9:29 AM EST LMOM * Telephone Encounter - Sendy Bryant OSA - 03/11/2024 2:51 PM EST Tried to leave pt voicemail to schedule in person appt voicemail box was full at this time * Telephone Encounter - Dixon Almonte MD - 03/11/2024 1:48 PM EST She did not log on at all for her second video visit. Given that this is an MSK complaint, a video visit really isn't appropriate anyway. Can we get her seen in person please? Thanks. * Telephone Encounter - Indy Guy CCMA - 03/11/2024 12:46 PM EST FYI * Telephone Encounter - Janeth Kumar OSA - 03/11/2024 10:51 AM EST Patient had a video call with Dr. Almonte this morning. There was a connection issue, and patient could not hear the doctor at all. She stated they tried to reconnect once or twice, but it did not work. Stated that she does not want to be charged for this video, and would still like to speak to the doctor. She is having a lot of pain in her left knee. I am going to try and get her scheduled for today. Please advise. documented in this encounter Plan of Treatment Health Maintenance Due Date Last Done Comments Hepatitis C Screening 06/10/1991 DTap/Tdap Vaccines (1 - Tdap) 1992 Hepatitis B Vaccine (1 of 3 - 19+ 3-dose series) 1992 Pneumococcal Vaccine: 50+ Years (1 of 2 - PCV) 1992 Cologuard 2018 Colonoscopy 2018 Colorectal Cancer Screening 2018 Fecal Occult Blood Test 2018 Sigmoidoscopy 2018 Depression Monitoring 11/20/2022 11/20/2021 Zoster Vaccines (1 of 2) 06/10/2023 Mammogram 11/14/2023 11/13/2022, 10/22, 08/31/2018 COVID-19 Vaccine (1 - 2023- season) 2023 Influenza Vaccine (FLU shot) (#1) 2023 HbA1c 10/22/2024 10/23/2023 Lipid Panel 11/20/2026 11/20/2021, 09/20, 09/09/2018, Additional history exists HPV (Gardasil) Vaccine Aged Out No lo nger eligible based on patient's age to complete this topic MENINGOCOCCAL (MENACTRA/MENVEO) Aged Out No longer eligible based on patient's age to complete this topic documented as of this encounter Medical Devices Not on filedocumented as of this encounter Care Teams Vehicle Detailer Relationship Specialty Start Date End Date Rogelio Moreira III, MD [address] [place], [place] [id number] PCP - General 04/01/07 documented as of this encounter
--- OUTSIDE RECORDS SUMMARY | 2024-03-24 20:00 | External Medical Summary | Summary of Care ---
Author Name Unknown Organization [facility] Address [address] [place] [address] Phone [phone] Care Team Providers Care Boat Master Name Role Phone Harish HOLMAN MD, Rogelio Jeffers Primary Care Provider [phone] Reason for Visit * Reason Onset Date Comments Advice 03/11/202403/11 tried to c all pt. Appt/knee pain Encounter Details Date Type Department Care Team (Late st Contact Info) Description 03/11/2024 Telephone Family Practice [facility], [place] [address] [place] [address] Dixon Almonte MD [address] [place] [address] Advice (03/11 tried to call pt. Appt/knee... Allergies Active Allergy Reactions Criticality Noted Date Comments Metaxalone 05/25/2013 Naproxen 05/25/2013 Panixine Disperdose Rash 02/28/2008 documented as of this encounter (statuses as of 03/22/2024) Medications BUSPIRONE HCL 30 MG PO TABS [...] as of this encounter (statuses as of 03/22/2024) Active Problems Problem Noted Date Diagnosed Date [...] as of this encounter (statuses as of 03/22/2024) Resolved Problems Problem Noted Date Diagnosed Date Resolved Date Psoriasis 02/11/2017 02/02/2023 Cough 07/29/2016 05/07/2018 ADVANCE DIRECTIVE INFORMATION 12/18/2004 01/25/2024 Overview (12/18/2004): No, Advance Directive brochure offered , patient declined. documented as of this encounter (statuses as of 03/22/2024) Immunizations Name Administration Dates Next Due PPD [...] encounter Miscellaneous Notes * Telephone Encounter - Ruth Bassett OSA - 03/22/2024 11:32 AM EST Contacted pt to schedule appointment, she said she is feeling better and does not need to be seen for this issue at this time. * Telephone Encounter - Eliz Call OSA [...] 11/13/2022, 10/22, 08/31/2018 COVID-19 Vaccine (1 - season) 2023 Influenza Vaccine (FLU shot) (#1) 2023 HbA1c 10/22/2024 10/23/2023 Lipid Panel 11/20/2026 11/20/2021, 0704/2020, 09/09/2018, Additional history exists HPV (Gardasil) Vaccine Aged Out No lo nger eligible based on patient's age to complete this topic MENINGOCOCCAL (MENACTRA/MENVEO) Aged Out No longer eligible based on patient's age to complete this topic documented as of this encounter Medical Devices Not on filedocumented as of this encounter Care Teams Boat Master Relationship Specialty Start Date End Date Rogelio Moreira III, MD [address] [place] [address] PCP - General 04/01/07 documented as of this encounter
--- OUTSIDE RECORDS SUMMARY | 2024-03-24 20:01 | External Medical Summary | Summary of Care ---
Author Name Unknown Organization [facility] Address [address] [place] [address] Phone [phone] Care Team Providers Care Personal Chef Name Role Phone Harish HOLMAN MD, Rogelio Jeffers Primary Care Provider [phone] Reason for Visit * Reason Comments eRx-Medication Refill Encounter Details Date Type Department Care Team (Late st Contact Info) Description 02/26/2024 Refill Nutrition & [facility] Management, [place] [address] [place] [address] Kathy Ovalle CRNP [address], [place] [id number] Abnormal weight gain; Class 2 severe obesity due to excess calories with serious comorbidity and body mass index (BMI) of 39.0 to 39.9 in adult (HCC) Allergies Active Allergy Reactions Criticality Noted Date Comments Metaxalone 05/25/2013 Naproxen 05/25/2013 Panixine Disperdose Rash 02/28/2008 documented as of this encounter (statuses as of 02/26/2024) Medications BUSPIRONE HCL 30 MG PO TABS 1 TABLET TWICE DAILY 04/14/19 13 Active Aspirin 81 MG Tablet Take 1 Tablet by mouth. 07/23/19 16 Active meclizine (ANTIVERT) 25 MG Tablet Take [...] Tablet Extended Release 24 Hour (Wellbutrin XL) 11/21/19 23 Active Azelastine HCl 0.1 % Nasal Solution Administer 2 Sprays into each nostril in the morning and 2 Sprays before bedtime. 90 mL 3 02/03/20 23 Active Fluticasone Propionate 50 MCG/ACT Nasal Suspension Administer 2 Sprays into each nostril in the morning and 2 Sprays before bedtime. 96 g 3 02/03/20 23 Active Ventolin HFA 108 (90 Base) MCG/ACT Inhalation Aerosol Solution INHALE 2 PUFFS BY MOUTH EVERY 4 HOURS NEEDED FOR COUGH, SHORTNESS OF BREATH OR WHEEZING. 54 g 2 02/03/20 23 Active Budesonide-Form oterol Fumarate 80-4.5 MCG/ACT Inhalation Aerosol (Symbicort) Inhale 2 Puffs by mouth in the morning and 2 Puffs before bedtime. Rinse after. 10.2 g 8 02/03/20 23 Active Fluticasone-Esteban meterol 100-50 MCG/ACT Inhalation Aerosol Powder Breath Activated (Wixela Inhub) Inhale 1 Puff by mouth in the morning and 1 Puff before bedtime. 180 Each 1 02/18/20 23 Active Atorvastatin Calcium 20 MG Oral Tablet (Lipitor) TAKE 1 TABLET BY MOUTH IN THE MORNING 90 Tablet 01/15/20 24 Active Famotidine 20 MG Oral Tablet (Pepcid) TAKE 1 TABLET BY MOUTH ONCE DAILY NEEDED FOR HEARTBURN 90 Tablet 01/15/20 24 Active Omeprazole 40 MG Oral Capsule Delayed Release (PriLOSEC) TAKE 1 CAPSULE BY MOUTH ONCE DAILY 1 HOUR BEFORE DINNER 90 Capsule 01/15/20 24 Active Naltrexone HCl 50 MG Oral Tablet (Revia)Indicati ons:Abnormal weight gain,Class 2 severe obesity due to excess calories with serious comorbidity and body mass index (BMI) of 39.0 to 39.9 in adult (HCC) Take 0.5 Tablets by mouth 2 times a day. TAKE 1/2 (ONE-HALF) TABLET BY MOUTH ONCE DAILY FOR 7 DAYS THEN 1/2 (ONE-HALF) TWICE DAILY 30 Tablet 3 02/26/20 24 Active Naltrexone HCl 50 MG Oral Tablet (Revia)Indicati ons:Abnormal weight gain,Class 2 severe obesity due to excess calories with serious comorbidity and body mass index (BMI) of 39.0 to 39.9 in adult (HCC) Take 1/2 tab by mouth once a day for 1 week then take 1/2 tab twice a day (morning & late afternoon) 30 Tablet 2 10/20/19 24 024 Discontinued documented as of this encounter (statuses as of 02/26/2024) Active Problems Problem Noted Date Diagnosed Date [...] as of this encounter (statuses as of 02/26/2024) Resolved Problems Problem Noted Date Diagnosed Date Resolved Date Psoriasis 02/11/2017 02/02/2023 Cough 07/29/2016 05/07/2018 ADVANCE DIRECTIVE INFORMATION 12/18/2004 01/25/2024 Overview (12/18/2004): No, Advance Directive brochure offered , patient declined. documented as of this encounter (statuses as of 02/26/2024) Immunizations Name Administration Dates Next Due PPD [...] encounter Miscellaneous Notes * Telephone Encounter - Shawnee Hernandez PA-C - 02/26/2024 11:13 AM ESTSigned Prescriptions: Disp Refills Naltrexone HCl 50 MG Oral Tablet (Revia) 30 Tab*3 Sig: Take 0.5 Tablets by mouth 2 times a day. TAKE 1/2 (ONE-HALF) TABLET BY MOUTH ONCE DAILY FOR 7 DAYS THEN 1/2 (ONE-HALF) TWICE DAILY Authorizing Provider: SHAWNEE HERNADNEZ * Telephone Encounter - Helen Villarreal LPN - 02/26/2024 10:49 AM ESTPending Prescriptions: Disp Refills Naltrexone HCl 50 MG Oral Tablet 30 Tab*0 Sig: TAKE 1/2 (ONE-HALF) TABLET BY MOUTH ONCE DAILY FOR 7 DAYS THEN 1/2 (ONE-HALF) TWICE DAILY * Telephone Encounter - Charito Herndon OSA - 02/26/2024 10:13 AM ESTPending Prescriptions: Disp Refills Naltrexone HCl 50 MG Oral Tablet 30 Tab*0 Sig: TAKE 1/2 (ONE-HALF) TABLET BY MOUTH ONCE DAILY FOR 7 DAYS THEN 1/2 (ONE-HALF) TWICE DAILY documented in this encounter Plan of Treatment Health Maintenance Due Date Last Done Comments Pneumococcal Vaccine: Pediatrics (0 to 5 Years) and At-Risk Patients (6 to 64 Years) (1 of 2 - PCV) 06/10/1979 Hepatitis C Screening 06/10/1991 DTap/Tdap Vaccines (1 - Tdap) 1992 Hepatitis B Vaccine (1 of 3 - 19+ 3-dose series) 1992 Cologuard 2018 Colonoscopy 2018 Colorectal Cancer Screening 2018 Fecal Occult Blood Test 2018 Sigmoidoscopy 2018 Depression Monitoring 11/20/2022 11/20/2021 Zoster Vaccines (1 of 2) 06/10/2023 Mammogram 11/14/2023 11/13/2022, 10/22, 08/31/2018 COVID-19 Vaccine ( - 2023- season) 2023 Influenza Vaccine (FLU shot) (#1) 2023 HbA1c 10/22/2024 10/23/2023 Lipid Panel 11/20/2026 11/20/2021, 07/04/2020, 09/09/2018, Additional history exists HPV (Gardasil) Vaccine Aged Out No lo nger eligible based on patient's age to complete this topic MENINGOCOCCAL (MENACTRA/MENVEO) Aged Out No longer eligible based on patient's age to complete this topic documented as of this encounter Medical Devices Not on filedocumented as of this encounter Visit Diagnoses Diagnosis Abnormal weight gain Class 2 severe obesity due to excess calories with serious comorbidity and body mass index (BMI) of 39.0 to 39.9 in adult (HCC) documented in this encounter Care Teams Personal Chef Relationship Specialty Start Date End Date Rogelio Moreira III, MD [address] [facility] [place] [address] PCP - General 04/01/07 documented as of this encounter
--- OUTSIDE RECORDS SUMMARY | 2024-03-24 20:01 | External Medical Summary | Summary of Care ---
Author Name Unknown Organization [facility] Address [address] [place] [address] Phone [phone] Care Team Providers Care Stone Spreader Operator Name Role Phone Harish HOLMAN MD, Rogelio Jeffers Primary Care Provider [phone] Reason for Visit * Reason Onset Date Comments Advice 03/11/202403/11 tried to c all pt. Appt/knee pain Encounter Details Date Type Department Care Team (Late st Contact Info) Description 03/11/2024 Telephone Family Practice [facility], [place] [address] [place] [address] Dixon Almonte MD [address] [place] [address] Advice (03/11 tried to call pt. Appt/knee... Allergies Active Allergy Reactions Criticality Noted Date Comments Metaxalone 05/25/2013 Naproxen 05/25/2013 Panixine Disperdose Rash 02/28/2008 documented as of this encounter (statuses as of 03/15/2024) Medications BUSPIRONE HCL 30 MG PO TABS [...] as of this encounter (statuses as of 03/15/2024) Active Problems Problem Noted Date Diagnosed Date [...] as of this encounter (statuses as of 03/15/2024) Resolved Problems Problem Noted Date Diagnosed Date Resolved Date Psoriasis 02/11/2017 02/02/2023 Cough 07/29/2016 05/07/2018 ADVANCE DIRECTIVE INFORMATION 12/18/2004 01/25/2024 Overview (12/18/2004): No, Advance Directive brochure offered , patient declined. documented as of this encounter (statuses as of 03/15/2024) Immunizations Name Administration Dates Next Due PPD [...] - 19+ 3-dose series) 1992 Pneumococcal Vaccine: Pediatrics (0 to 5 Years) and At-Risk Patients (6 to 64 Years) (1 of 2 - PCV) 1992 Cologuard [...] filedocumented as of this encounter Care Teams Stone Spreader Operator Relationship Specialty Start Date End Date Rogelio Moreira III, MD [address] [place], [place] [address] PCP - General 04/01/07 documented as of this encounter
--- OUTSIDE RECORDS SUMMARY | 2024-03-24 20:01 | External Medical Summary | Summary of Care ---
Author Name Unknown Organization [facility] Address [address] [place] [address] Phone [phone] Care Team Providers Care Special Education Resource Room Teacher Name Role Phone Harish HOLMAN MD, Rogelio Jeffers Primary Care Provider [phone] Encounter Details Date Type Department Care Team (Late st Contact Info) Description 12/22/2023 9:20 AM EDT Telemedicine Nutrition & Weight Management, [place] [address] [place] [address] Kathy Ovalle CRNP [address] [place] [address] Abnormal weight gain*; Class 1 obesity due to excess calories with serious comorbidity and body mass index (BMI) of 34.0 to 34.9 in adult; Prediabetes; THOMAS (obstructive sleep apnea); Gastroesophageal reflux disease, unspecified whether esophagitis present; Depression with anxiety; Fibromyalgia; Tobacco use disorder Allergies Active Allergy Reactions Criticality Noted Date Comments Metaxalone 05/25/2013 Naproxen 05/25/2013 Panixine Disperdose Rash 02/28/2008 documented as of this encounter (statuses as of 12/22/2023) Medications Medication Sig Dispensed Refills Start Date End Date Status BUSPIRONE HCL 30 MG PO TABS 1 TABLET TWICE DAILY 04/14/2012 Active Aspirin 81 MG Tablet Take 1 Tablet by mouth. 07/23/2015 Active meclizine (ANTIVERT) 25 MG Tablet Take [...] Tablet Extended Release 24 Hour (Wellbutrin XL) 11/20/2022 Active Atorvastatin Calcium 20 MG Oral Tablet (Lipitor) Take 1 Tablet by mouth in the morning. 90 Tablet 3 02/02/2023 Active Azelastine HCl 0.1 % Nasal Solution Administer 2 Sprays into each nostril in the morning and 2 Sprays before bedtime. 90 mL 3 02/02/2023 Active Famotidine 20 MG Oral Tablet (Pepcid) Take 1 Tablet by mouth daily as needed for Heartburn. 90 Tablet 3 02/02/2023 Active Fluticasone Propionate 50 MCG/ACT Nasal Suspension Administer 2 Sprays into each nostril in the morning and 2 Sprays before bedtime. 96 g 3 02/02/2023 Active Omeprazole 40 MG Oral Capsule Delayed Release (PriLOSEC) TAKE 1 CAPSULE BY MOUTH ONCE DAILY 1 HOUR BEFORE DINNER. 90 Capsule 3 02/02/2023 Active Ventolin HFA 108 (90 Base) MCG/ACT Inhalation Aerosol Solution INHALE 2 PUFFS BY MOUTH EVERY 4 HOURS NEEDED FOR COUGH, SHORTNESS OF BREATH OR WHEEZING. 54 g 2 02/02/2023 Active Budesonide-Formoter ol Fumarate 80-4.5 MCG/ACT Inhalation Aerosol (Symbicort) Inhale 2 Puffs by mouth in the morning and 2 Puffs before bedtime. Rinse after. 10.2 g 8 02/02/2023 Active Fluticasone-Salmete rol 100-50 MCG/ACT Inhalation Aerosol Powder Breath Activated (Wixela Inhub) Inhale 1 Puff by mouth in the morning and 1 Puff before bedtime. 180 Each 1 02/17/2023 Active Naltrexone HCl 50 MG Oral Tablet (Revia)Indications: Abnormal weight gain,Class 2 severe obesity due to excess calories with serious comorbidity and body mass index (BMI) of 39.0 to 39.9 in adult (HCC) Take 1/2 tab by mouth once a day for 1 week then take 1/2 tab twice a day (morning & late afternoon) 30 Tablet 2 10/20/2023 Active documented as of this encounter (statuses as of 12/22/2023) Active Problems Problem Noted Date Diagnosed Date [...] (eustachian tube dysfunction) 07/29/2016 Migraine variant 06/28/2008 ADVANCE DIRECTIVE INFORMATION 12/18/2004 Overview: No, Advance Directive brochure offered , patient declined. GERD (gastroesophageal reflux disease) Fibromyalgia Depression with anxiety documented as of this encounter (statuses as of 12/22/2023) Resolved Problems Problem Noted Date Diagnosed Date Resolved Date Psoriasis 02/11/2017 02/02/2023 Cough 07/29/2016 05/07/2018 documented as of this encounter (statuses as of 12/22/2023) Immunizations Name Administration Dates Next Due PPD [...] Recorded PHQ Adult Total Score 2 11/20/2021 Utilities Answer Date Recorded Do you have trouble paying y our heating, water, or electric bill? (Adult - for ages 18 years and over) Not on file 09/08/2023 Is your family able to pay t he heat, water, or electric bill? (Household - for ages 0-17 years) Not on file 09/08/2023 Does your family have access to good internet? (Household - for ages 0-17 years) Not on file 09/08/2023 Social Connections Answer Date Recorded How often do you feel lonely or isolated from those around you? (Adult - for ages 18 years and over) Not on file 09/08/2023 Sex and Gender Information Value Date Recorded Sex Assigned at Not on file Gender Identity Not on file Sexual Orientation Not on file Job Start Date Occupation Industry Not on file Not on file Not on file documented as of this encounter Patient Instructions * Patient Instructions* Kathy Ovalle CRNP - 12/22/2023 9:32 AM EDT Recommendations: Today's goals outlined in RED below Keep a food log (use gwen My Fitness Pal or Lose It!, Hellotravel) Start a daily multivitamin High protein, lower carb. Focus on protein goal protein of 60-90 g/day. (If not on protein restrictions for another disease process) Decrease carbohydrate intake and increase proportions of protein:carbs in every meal Review myplate method with patient https://www.myplate.gov/ At meals eat Protein 1st, vegetables 2nd and starch last Drink at least 64 oz (2 liters) of water daily. SLOWLY add fiber to your diet aim for goal of at least 25 gms per day. Some foods high in fiber include raspberries, pears with skin, apple with skin, yogurt, green beans, beans, spinach, oranges, flaxseed, oatmeal, prunes, kiwi. See attached link for foods and additional education https://mydoctor. [facility].org/ncal/Images/[email or web address]%[email or web address]_[email or web address].pdf You may need to add daily metamucil, bene-fiber or similar products. Don't skip meals. Eat breakfast within 1 hour of waking up. Choose whole, natural foods (fruits, vegetables, lean proteins, & healthy fats). Avoid rice, pasta, bread, potato, processed/refined foods & sugary foods/beverages Replace carb and fat with a protein source in each meal (use gwen Fit Men Cook) Snacks should be around 100-200 calories between meals. Increase vegetables to at least 3 servings daily and fruits 1 serving daily. Physical activity: Start slow with a goal you can achieve 2-3 times a week 10-20 minutes at a time.Gradually increase to Goal of 30-45 minutes of exercise 5-7 times a week. (can be broken up into 10min intervals throughout the day if needed) & strength training 2-3 days a week (phone gwen: "Home Workout", Search YouGydgetube videos for age appropriate workout.) Increase physical activity--taking stairs, parking farther away, getting up if sitting for more than 40 minutes Aim for 1000 steps a day Yoga with Katie - Yoga with playlists for beginners and people with disabilities "Lazy Girl Workout" - search for that and various channels have these seated, lying down, sitting exercises. Carlota Justiz, GrowWithJo, etc. Be mindful of eating; chew each bite 20 times before swallowing. Eat slowly 20- 30 minutes per meal. Diet changes should be seen a new way of eating for life rather than a "diet" to lose weight Try these alternative food options: Protein shakes- Premier, Pure protein, Fairlife (30g or 42g protein), Iconic Lactose free protein shakes- Fairlife, Ripple, Iconic, Lam Protein bars- Quest, Pure protein Ice cream- Laurent's, Yasso, Enlightened, Halo Top Coffee Creamer- Super Creamer, [place] Farms BetterHalf Unsweetened, Silk Silver Star Creamer Chips- Quest protein chips, Cheese crisps, wild chips Bread- 647 wheat, Protein Keto bread, whole wheat manda bread, low carb/high protein wraps Pasta- Chickpea pasta, Pasta zero or similar Rice- Cauliflower rice, quinoa, brown rice Fruits- berries, cantaloupe, peaches, apples, oranges-try to avoid or limit bananas and grapes Yogurt- Ratio (25g protein), Skyr, Two good, Chobani 60 chivo or 100 chivo, Oikos triple zero Sugar alternatives- Stevia, Monk fruit, Swerve documented in this encounter Progress Notes * Kathy Ovalle CRNP - 12/22/2023 9:20 AM EDT Comprehensive [facility] Management Clinic Note Patient location: HOME. I was in a hospital or clinic location. After connecting through [employer],patient was verified with two unique identifiers. Patient (or authorized legal event representative) was then informed that this was a Telemedicine visit and being conducted confidentially over secure lines. Methods to assure confidentiality were taken. Patient acknowledged consent and understanding of pr ivacy and security of the Telemedicine visit. The patient agreed to participate. SUBJECTIVE: Jannie Allen presents in follow up to the comprehensive weight management clinic. The patient is a 48 year old female with PMH significant for Patient Active Problem List Diagnosis ADVANCE DIRECTIVE INFORMATION Migraine variant GERD (gastroesophageal reflux disease) Fibromyalgia Depression with anxiety Rhinitis, nonallergic ETD (eustachian tube dysfunction) DDD (degenerative disc disease), lumbar Post concussion syndrome Carpal tunnel syndrome of right wrist Snoring Restrictive pattern present on pulmonary function testing Tobacco use disorder THOMAS (obstructive sleep apnea) Severe obesity with body mass index (BMI) of 35.0 to 39.9 with serious comorbidity (HCC) Prediabetes whom we have been following since 10/20/23 and her weight at that time was 215 lbs. Wt Readings from Last 8 Encounters: 12/01/23 92.1 kg (203 lb) 10/20/23 97.5 kg (215 lb) 04/18/21 95.3 kg (210 lb) 02/11/17 88.9 kg (196 lb) 07/28/16 86.2 kg (190 lb) 06/25/16 63.5 kg (140 lb) 05/02/11 89.5 kg (197 lb 6.4 oz) 03/20/10 82.1 kg (181 lb) The patient is receiving ongoing education regarding dietary and physical modifications for weight loss and is interested in the following treatment options for obesity: medical management and possible medication use. The patient was last seen in this clinic 09/2023 215lbs. No current weight 12/22/23 Initial consult w/this provider 09/2023. Naltrexone added to plan. No current weight feels like she lost ~5-10#. Clothes are feeling looser. Continues to c/o feeling very tired in am-is not wearing CPAP Review of Systems: Constitutional: (+) weight change and (+) fatigue Cardiovascular: (-) negative: no chest pain, dyspnea, syncope, or palpitations Pulmonary: (-) negative: no cough, wheezing, or shortness of breath Abdominal/GI: (-) negative: no pain, heartburn, dysphagia, bleeding, change in bowel habits, nauseaor vomiting Skin: (-) negative: no rash or new or changing moles Neurology: (-) negative: no focal neurologic defect Psychiatry: (+) depression and (+) anxiousness All others negative other than those noted in the HPI Current Outpatient Medications Medication Sig Dispense Refill BUSPIRONE HCL 30 MG PO TABS 1 TABLET TWICE DAILY Aspirin 81 MG Tablet Take 1 Tablet by mouth. meclizine (ANTIVERT) 25 MG Tablet Take 1 Tablet by mouth 3 times a day as needed. ibuprofen (MOTRIN) 600 MG Tablet Take 1 Tablet by mouth every 6 hours as needed. cyclobenzaprine (FLEXERIL) 10 MG Tablet Take 1 Tablet by mouth in the morning and 1 Tablet before bedtime. Pregabalin (LYRICA) 300 MG Capsule Take 1 Capsule by mouth in the morning and 1 Capsule before bedtime. topiramate (TOPAMAX) 200 MG Tablet Take 1 Tablet by mouth in the morning and 1 Tablet before bedtime. verapamil SR (ISOPTIN SR) 180 MG TBCR Take 240 mg by mouth. 1 twice daily sertraline (ZOLOFT) 100 MG Tablet Take 1 Tablet by mouth. 2 daily sertraline (ZOLOFT) 50 MG Tablet Take 1 Tablet by mouth in the morning. CPAP every night at bedtime . buPROPion HCl ER (XL) 300 MG Oral Tablet Extended Release 24 Hour (Wellbutrin XL) Atorvastatin Calcium 20 MG Oral Tablet (Lipitor) Take 1 Tablet by mouth in the morning. 90 Tablet 3 Azelastine HCl 0.1 % Nasal Solution Administer 2 Sprays into each nostril in the morning and 2 Sprays before bedtime. 90 mL 3 Famotidine 20 MG Oral Tablet (Pepcid) Take 1 Tablet by mouth daily as needed for Heartburn. 90 Tablet 3 Fluticasone Propionate 50 MCG/ACT Nasal Suspension Administer 2 Sprays into each nostril in the morning and 2 Sprays before bedtime. 96 g 3 Omeprazole 40 MG Oral Capsule Delayed Release (PriLOSEC) TAKE 1 CAPSULE BY MOUTH ONCE DAILY 1 HOUR BEFORE DINNER. 90 Capsule 3 Ventolin HFA 108 (90 Base) MCG/ACT Inhalation Aerosol Solution INHALE 2 PUFFS BY MOUTH EVERY 4 HOURS NEEDED FOR COUGH, SHORTNESS OF BREATH OR WHEEZING. 54 g 2 Budesonide-Formoterol Fumarate 80-4.5 MCG/ACT Inhalation Aerosol (Symbicort) Inhale 2 Puffs by mouth in the morning and 2 Puffs before bedtime. Rinse after. 10.2 g 8 Fluticasone-Salmeterol 100-50 MCG/ACT Inhalation Aerosol Powder Breath Activated (Wixela Inhub) Inhale 1 Puff by mouth in the morning and 1 Puff before bedtime. 180 Each 1 Naltrexone HCl 50 MG Oral Tablet (Revia) Take 1/2 tab by mouth once a day for 1 week then take 1/2 tab twice a day (morning & late afternoon) 30 Tablet 2 No current facility-administered medications for this visit. Water intake: Yes, Prescribed diet: Current diet: Breakfast: protein bar, slim fast Lunch: yogurt, protein bar Dinner: chili dogs Snacks: nothing Drinks: water Food logs: No Exercise (Type/Duration/Freq): ADL Weight loss Pharmacotherapy: yes Wellbutrin/Naltrexone OBJECTIVE: There were no vitals taken for this visit. General: Well-developed, non-dysmorphic, obese, comfortable, NAD HEENT: Normocephalic/atraumatic. Sclera non-icteric, MMM Neck: No visible thyromegaly or tracheal deviation. Lungs: no conversational dyspnea Psych: normal mood and affect Neuro: speech normal pitch and speed, AAOx3 ASSESSMENT AND PLAN: Abnormal weight gain /34.8KG/M / Class I obesity: The patient would like to proceed with medical management and possible medication use Discussed lifestyle changes as well as the following medication options (risks, benefits, side effects, and relation to current medical conditions): GLP-1RA (liraglutide, semaglutide) or GLP1/GIP (tirzepatide) Contrave (Buproprion/Naltrexone)-Currently on Topiramate-currently on 200mg for migraines Metformin-consider add on for PreDM Has decided to pursue bariatric surgery : Declines Barriers are consistency, limited physical. Motivators are feeling better overall, avoiding/reducing co-morbid conditions Handouts regarding nutrition and physical activity were provided, as appropriate. PreDM Hemoglobin AIC Results: Lab Results Component Value Date/Time HEMOGLOBIN A1C - ENIDER 6.2 (H) 10/23/2023 09:53 AM Will check A1c in 3 months if > 6.5% consider GLP1 THOMAS (obstructive sleep apnea) Not Compliant w/CPAP Strongly encouraged to wear nightly Gastroesophageal reflux disease, unspecified whether esophagitis present Controlled on PPI and H2 Fibromyalgia DDD (degenerative disc disease), lumbar Limits mobility Expect improvement with weight loss Migraine variant On topamax and Verapamil Follows neurology Depression with anxiety Stable. Patient currently denies SI/HI, AVH, paranoid delusions, or substance use. Advised of potential increase in depression symptoms with medications prescribed today. Advised to f/u with PCP for worsening of depression symptoms and instructed to report to ED and/or call crisis # [phone] or 911 withSI/HI Tobacco use disorder Currently on Bupropion Offer #[id number] Has patches-plans to work w/PCP for chantix Hepatic steatosis Noted on abd u/s Expect improvement with weight loss Nephrolithiasis Caution w/topamax, currently on for migraines Mixed hyperlipidemia On statin Expect improvement with weight loss The patient agreed to try the plan as discussed and return in 3 month(s). The patient was encouraged to call or send a patient portal message in the meantime with any questions or concerns prior to their next clinic visit. I spent a total of 20-29 minutes (exact time 20 mins) on the date of service in preparation, delivery, and documentation of the care provided to Jannie Allen excluding any time spent in the performance of separately billed services. This included but was no limited to providing counseling aboutthe benefits of weight loss, about their nutritional status, detailed explanations about calorie count, types of nutrients to choose, and composition of the meals. Motivational interview provided in order to prepare the patient to achieve future goals. Dr. Casillas. available in clinic for consultation as needed. . Kathy GUZMAN Nutrition & Weight Management [facility] [address] [facility] [place] [address] P [phone] | F [phone] Patient Instructions Recommendations: Today's goals outlined in RED below Keep a food log (use gwen My Fitness Pal or Lose It!, MyNetDiary) Start a daily multivitamin High protein, lower carb. Focus on protein goal protein of 60-90 g/day. (If not on protein restrictions for another disease process) Decrease carbohydrate intake and increase proportions of protein:carbs in every meal Review myplate method with patient https://www.myplate.gov/ At meals eat Protein 1st, vegetables 2nd and starch last Drink at least 64 oz (2 liters) of water daily. SLOWLY add fiber to your diet aim for goal of at least 25 gms per day. Some foods high in fiber include raspberries, pears with skin, apple with skin, yogurt, green beans, beans, spinach, oranges, flaxseed, oatmeal, prunes, kiwi. See attached link for foods and additional education https://mydoctor. [facility].org/nmal/Images/[email or web address]%20Revised%897-30_[email or web address].pdf You may need to add daily metamucil, bene-fiber or similar products. Don't skip meals. Eat breakfast within 1 hour of waking up. Choose whole, natural foods (fruits, vegetables, lean proteins, & healthy fats). Avoid rice, pasta, bread, potato, processed/refined foods & sugary foods/beverages Replace carb and fat with a protein source in each meal (use gwen Fit Men Cook) Snacks should be around 100-200 calories between meals. Increase vegetables to at least 3 servings daily and fruits 1 serving daily. Physical activity: Start slow with a goal you can achieve 2-3 times a week 10-20 minutes at a time.Gradually increase to Goal of 30-45 minutes of exercise 5-7 times a week. (can be broken up into 10min intervals throughout the day if needed) & strength training 2-3 days a week (phone gwen: "Home Workout", Search YouTube videos for age appropriate workout.) Increase physical activity--taking stairs, parking farther away, getting up if sitting for more than 40 minutes Aim for 1000 steps a day Yoga with Katie - Yoga with playlists for beginners and people with disabilities "Lazy Girl Workout" - search for that and various channels have these seated, lying down, sitting exercises. Carlota Justiz, GrowKevin, etc. Be mindful of eating; chew each bite 20 times before swallowing. Eat slowly 20- 30 minutes per meal. Diet changes should be seen a new way of eating for life rather than a "diet" to lose weight Try these alternative food options: Protein shakes- Premier, Pure protein, Fairlife (30g or 42g protein), Iconic Lactose free protein shakes- Fairlife, Ripple, Iconic, Lam Protein bars- Quest, Pure protein Ice cream- Laurent's, Yasso, Enlightened, Halo Top Coffee Creamer- Super Creamer, [place] [employer] BetterHalf Unsweetened, Silk Silver Star Creamer Chips- Quest protein chips, Cheese crisps, wild chips Bread- 647 wheat, Protein Keto bread, whole wheat manda bread, low carb/high protein wraps Pasta- Chickpea pasta, Pasta zero or similar Rice- Cauliflower rice, quinoa, brown rice Fruits- berries, cantaloupe, peaches, apples, oranges-try to avoid or limit bananas and grapes Yogurt- Ratio (25g protein), Skyr, Two good, Chobani 60 chivo or 100 chivo, Oikos triple zero Sugar alternatives- Stevia, Monk fruit, Swerve documented in this encounter Plan of Treatment Upcoming Encounters Date Type Department Care Team (Late st Contact Info) Description 02/17/2024 9:00 AM EST Office Visit Family Practice [facility] [place] [address] [place] [address] Rogelio Moreira III, MD [address] [place] [address] Scheduled Orders Name Type Priority Associated Diagnoses Orde r Schedule HEMOGLOBIN A1C Lab Routine Abnormal weight gain Class 1 obesity due to excess calories with serious comorbidity and body mass index (BMI) of 34.0 to 34.9 in adult Prediabetes Expected: 01/23/2024, Expires: 12/21/2024 Health Maintenance Due Date Last Done Comments [...] 11/13/2022, 10/22, 08/31/2018 COVID-19 Vaccine ( - season) 2023 Influenza Vaccine (FLU shot) [...] this encounter Visit Diagnoses Diagnosis Abnormal weight gain- Primary Class 1 obesity due to excess calories with serious comorbidity and body mass index (BMI) of 34.0 to 34.9 in adult Prediabetes Other abnormal glucose THOMAS (obstructive sleep apnea) Obstructive sleep apnea (adult) (pediatric) Gastroesophageal reflux disease, unspecified whether esophagitis present Depression with anxiety Dysthymic disorder Fibromyalgia Mylagia and myositis, unspecified Tobacco use disorder documented in this encounter Care Teams Special Education Resource Room Teacher Relationship Specialty Start Date End Date Rogelio Moreira III, MD [address] [facility] [place] [address] PCP - General 04/01/07 documented as of this encounter
--- OUTSIDE RECORDS SUMMARY | 2024-03-24 20:01 | External Medical Summary | Summary of Care ---
Author Name Unknown Organization [facility] Address [address] [place] [address] Phone [phone] Care Team Providers Care Drill Grinder Name Role Phone Harish HOLMAN MD, Rogelio Jeffers Primary Care Provider [phone] Reason for Visit * Reason Onset Date Comments Advice 03/11/202403/11 tried to c all pt. Appt/knee pain Encounter Details Date Type Department Care Team (Late st Contact Info) Description 03/11/2024 Telephone Family Practice [facility] [place] [address] [place] [address] Dixon Almonte MD [address] [place] [address] Advice (03/11 tried to call pt. Appt/knee... Allergies Active Allergy Reactions Criticality Noted Date Comments Metaxalone 05/25/2013 Naproxen 05/25/2013 Panixine Disperdose Rash 02/28/2008 documented as of this encounter (statuses as of 03/11/2024) Medications BUSPIRONE HCL 30 MG PO TABS [...] as of this encounter (statuses as of 03/11/2024) Active Problems Problem Noted Date Diagnosed Date [...] as of this encounter (statuses as of 03/11/2024) Resolved Problems Problem Noted Date Diagnosed Date Resolved Date Psoriasis 02/11/2017 02/02/2023 Cough 07/29/2016 05/07/2018 ADVANCE DIRECTIVE INFORMATION 12/18/2004 01/25/2024 Overview (12/18/2004): No, Advance Directive brochure offered , patient declined. documented as of this encounter (statuses as of 03/11/2024) Immunizations Name Administration Dates Next Due PPD [...] encounter Miscellaneous Notes * Telephone Encounter - Sendy Bryant OSA [...] filedocumented as of this encounter Care Teams Drill Grinder Relationship Specialty Start Date End Date Rogelio Moreira III, MD [address] [place] [address] PCP - General 04/01/07 documented as of this encounter
--- OUTSIDE RECORDS SUMMARY | 2024-03-24 20:01 | External Medical Summary | Summary of Care ---
Author Name Unknown Organization [facility] Address [address] [place] [address] Phone [phone] Care Team Providers Care Linen Checker Name Role Phone Harish HOLMAN MD, Rogelio Jeffers Primary Care Provider +[phone] Encounter Details Date Type Department Care Team (Late st Contact Info) Description 01/28/2024 Population Health External Data Unspecified Department Allergies Active Allergy Reactions Criticality Noted Date Comments Metaxalone 05/25/2013 Naproxen 05/25/2013 Panixine Disperdose Rash 02/28/2008 documented as of this encounter (statuses as of 02/04/2024) Medications BUSPIRONE HCL 30 MG PO TABS [...] before bedtime. 180 Each 1 3 Active Naltrexone HCl 50 MG Oral Tablet (Revia)Indicatio ns:Abnormal weight gain,Class 2 severe obesity due to excess calories with serious comorbidity and body mass index (BMI) of 39.0 to 39.9 in adult (HCC) Take 1/2 tab by mouth once a day for 1 week then take 1/2 tab twice a day (morning & late afternoon) 30 Tablet 2 4 Active Atorvastatin Calcium 20 MG Oral Tablet (Lipitor) TAKE 1 TABLET BY MOUTH IN THE MORNING 90 Tablet 4 Active Famotidine 20 MG Oral Tablet (Pepcid) TAKE 1 TABLET BY MOUTH ONCE DAILY NEEDED FOR HEARTBURN 90 Tablet 4 Active Omeprazole 40 MG Oral Capsule Delayed Release (PriLOSEC) TAKE 1 CAPSULE BY MOUTH ONCE DAILY 1 HOUR BEFORE DINNER 90 Capsule Active documented as of this encounter (statuses as of 02/04/2024) Active Problems Problem Noted Date Diagnosed Date [...] as of this encounter (statuses as of 02/04/2024) Resolved Problems Problem Noted Date Diagnosed Date Resolved Date Psoriasis 02/11/2017 02/02/2023 Cough 07/29/2016 05/07/2018 ADVANCE DIRECTIVE INFORMATION 12/18/2004 01/25/2024 Overview (12/18/2004): No, Advance Directive brochure offered , patient declined. documented as of this encounter (statuses as of 02/04/2024) Immunizations Name Administration Dates Next Due PPD [...] on file documented as of this encounter Plan of Treatment Upcoming Encounters Date Type Department Care Team (Late st Contact Info) Description 02/17/2024 9:00 AM EST Office Visit Family Practice State [facility] [address] [place] [address] Rogelio Moreira III, MD [address] [place] [address] Health Maintenance Due Date Last Done Comments [...] (1 of 2) 06/10/2023 Mammogram 11/14/2023 11/13/2022, 0806/2022, 08/31/2018 COVID-19 Vaccine (1 - 2023- season) [...] filedocumented as of this encounter Care Teams Linen Checker Relationship Specialty Start Date End Date Rogelio Moreira III, MD [address] [place] [address] PCP - General 04/01/07 documented as of this encounter
--- OUTSIDE RECORDS SUMMARY | 2024-03-24 20:01 | External Medical Summary | Summary of Care ---
Author Name Unknown Organization [facility] Address [address] [place] [address] Phone [phone] Care Team Providers Care Telephone Technician Name Role Phone Harish HOLMAN MD, Rogelio Jeffesr Primary Care Provider [phone] Encounter Details Date Type Department Care Team (Late st Contact Info) Description 01/05/2024 Population Health External Data Unspecified Department Allergies Active Allergy Reactions Criticality Noted Date Comments Metaxalone 05/25/2013 Naproxen 05/25/2013 Panixine Disperdose Rash 02/28/2008 documented as of this encounter (statuses as of 01/06/2024) Medications Medication Sig Dispensed Refills Start Date [...] as of this encounter (statuses as of 01/06/2024) Active Problems Problem Noted Date Diagnosed Date [...] as of this encounter (statuses as of 01/06/2024) Resolved Problems Problem Noted Date Diagnosed Date Resolved Date Psoriasis 02/11/2017 02/02/2023 Cough 07/29/2016 05/07/2018 documented as of this encounter (statuses as of 01/06/2024) Immunizations Name Administration Dates Next Due PPD [...] Visit Family Practice State [facility] [address] [facility] [place] [place] [address] Rogelio Moreira III, MD 200 [facility] [place] [address] Health Maintenance Due Date Last Done Comments [...] filedocumented as of this encounter Care Teams Telephone Technician Relationship Specialty Start Date End Date Rogelio Moreira III, MD [address] [place] [address] PCP - General 04/01/07 documented as of this encounter
--- OUTSIDE RECORDS SUMMARY | 2024-03-24 20:01 | External Medical Summary | Summary of Care ---
Author Name Unknown Organization [facility] Address [address] [place] [address] Phone [phone] Care Team Providers Care Tax Assessor Name Role Phone Harish HOLMAN MD, Rogelio Jeffers Primary Care Provider [phone] Reason for Visit * Reason Comments eRx-Medication Refill Encounter Details Date Type Department Care Team (Late st Contact Info) Description 01/25/2024 Refill Family Practice [facility] [place] [address] [place] [address] Rogelio Moreira III, MD [address] [place] [address] Allergies Active Allergy Reactions Criticality Noted Date Comments Metaxalone 05/25/2013 Naproxen 05/25/2013 Panixine Disperdose Rash 02/28/2008 documented as of this encounter (statuses as of 01/26/2024) Medications Medication Sig Dispensed Refills Start Date [...] Release 24 Hour (Wellbutrin XL) 11/20/2022 Active Azelastine HCl 0.1 % Nasal Solution Administer 2 Sprays into each nostril in the morning and 2 Sprays before bedtime. 90 mL 3 02/02/2023 Active Fluticasone Propionate 50 MCG/ACT Nasal Suspension Administer 2 Sprays into each nostril in the morning and 2 Sprays before bedtime. 96 g 3 02/02/2023 Active Ventolin HFA 108 (90 [...] late afternoon) 30 Tablet 2 10/20/2023 Active Atorvastatin Calcium 20 MG Oral Tablet (Lipitor) TAKE 1 TABLET BY MOUTH IN THE MORNING 90 Tablet 01/15/2024 Active Famotidine 20 MG Oral Tablet (Pepcid) TAKE 1 TABLET BY MOUTH ONCE DAILY NEEDED FOR HEARTBURN 90 Tablet 01/15/2024 Active Omeprazole 40 MG Oral Capsule Delayed Release (PriLOSEC) TAKE 1 CAPSULE BY MOUTH ONCE DAILY 1 HOUR BEFORE DINNER 90 Capsule 01/15/2024 Active documented as of this encounter (statuses as of 01/26/2024) Active Problems Problem Noted Date Diagnosed Date [...] as of this encounter (statuses as of 01/26/2024) Resolved Problems Problem Noted Date Diagnosed Date Resolved Date Psoriasis 02/11/2017 02/02/2023 Cough 07/29/2016 05/07/2018 ADVANCE DIRECTIVE INFORMATION 12/18/2004 01/25/2024 Overview: No, Advance Directive brochure offered , patient declined. documented as of this encounter (statuses as of 01/26/2024) Immunizations Name Administration Dates Next Due PPD [...] encounter Miscellaneous Notes * Telephone Encounter - Emily Banerjee RPh - 01/26/2024 11:59 AM EST Refused Prescriptions: Disp Refills Atorvastatin Calcium 20 MG Oral Tablet (Li*90 Tab*0 Sig: TAKE 1TABLET BY MOUTH IN THE MORNINGRefused By: EMILY BANERJEE for Refusal: Too soon documented in this encounter Plan of Treatment Upcoming Encounters Date Type Department Care Team (Late st Contact Info) Description 02/17/2024 9:00 AM EST Office Visit Family Practice [facility] [place] [address] [place] [address] Rogelio Moreira III, MD [address] [place] [address] Health Maintenance Due Date Last Done Comments [...] 11/14/2023 11/13/2022, 10/22, 08/31/2018 COVID-19 Vaccine ( season) 2023 Influenza Vaccine (FLU shot) (#1) [...] filedocumented as of this encounter Care Teams Tax Assessor Relationship Specialty Start Date End Date Rogelio Moreira III, MD [address] [facility] [place] [address] PCP - General 04/01/07 documented as of this encounter
--- OUTSIDE RECORDS SUMMARY | 2024-03-24 20:01 | External Medical Summary | Summary of Care ---
Author Name Unknown Organization [facility] Address [address] [place] [address] Phone [phone] Care Team Providers Care Plastic Surgery Nurse Name Role Phone Harish HOLMAN MD, Rogelio Jeffers Primary Care Provider [phone] Reason for Visit * Reason Comments Acute Encounter Details Date Type Department Care Team (Late st Contact Info) Description 03/11/2024 10:20 AM EST Telemedicine Family Practice [facility] Walsh [address] [place] [address] Dixon Almonte MD [address] [place] [address] Patient left without being seen* Allergies Active Allergy Reactions Criticality Noted Date [...] on file documented as of this encounter Progress Notes * Dixon Almonte MD - 03/11/2024 10:24 AM EST Subjective Jannie Allen is a 48 year old female. Chief Complaint Patient presents with Acute Patient location: HOME. I was in a hospital or clinic location. After connecting through [employer],patient was verified with two unique identifiers. Patient (or authorized legal parts representative) was then informed that this was a Telemedicine visit and being conducted confidentially over secure lines. Methods to assure confidentiality were taken. Patient acknowledged consent and understanding of pr ivacy and security of the Telemedicine visit. The patient agreed to participate. HPI: This is a 48 year old female who presents for an acute visit. Despite restarting my computer and restarting the video visit twice, she was not able to hear me. As such, she will need to be rescheduled. I did notify her of this via the chat. Given that her chiefcomplaint was knee pain, I did recommend she schedule an in-person appointment. PMH: Current Outpatient Medications Medication Sig Dispense Refill [...] Tablet Extended Release 24 Hour (Wellbutrin XL) Azelastine HCl 0.1 % Nasal Solution Administer 2 Sprays into each nostril in the morning and 2 Sprays before bedtime. 90 mL 3 Fluticasone Propionate 50 MCG/ACT Nasal Suspension Administer 2 Sprays into each nostril in the morning and 2 Sprays before bedtime. 96 g 3 Ventolin HFA 108 (90 Base) MCG/ACT [...] 1 Puff before bedtime. 180 Each 1 Atorvastatin Calcium 20 MG Oral Tablet (Lipitor) TAKE 1 TABLET BY MOUTH IN THE MORNING 90 Tablet 0 Famotidine 20 MG Oral Tablet (Pepcid) TAKE 1 TABLET BY MOUTH ONCE DAILY NEEDED FOR HEARTBURN 90 Tablet 0 Omeprazole 40 MG Oral Capsule Delayed Release (PriLOSEC) TAKE 1 CAPSULE BY MOUTH ONCE DAILY 1 HOUR BEFORE DINNER 90 Capsule 0 Naltrexone HCl 50 MG Oral Tablet (Revia) Take 0.5 Tablets by mouth 2 times a day. TAKE 1/2 (ONE-HALF) TABLET BY MOUTH ONCE DAILY FOR 7 DAYS THEN 1/2 (ONE- HALF) TWICE DAILY 30 Tablet 3 No current facility-administered medications for this visit. Patient Active Problem List Diagnosis Migraine variant GERD (gastroesophageal reflux disease) Fibromyalgia Depression with anxiety Rhinitis, nonallergic ETD (eustachian tube dysfunction) DDD (degenerative disc disease), lumbar Post concussion syndrome Carpal tunnel syndrome of right wrist Snoring Restrictive pattern present on pulmonary function testing Tobacco use disorder THOMAS (obstructive sleep apnea) Severe obesity with body mass index (BMI) of 35.0 to 39.9 with serious comorbidity (HCC) Prediabetes Past Medical History: Diagnosis Date Anxiety Chronic rhinitis DDD (degenerative disc disease), lumbar 02/11/2017 Depression with anxiety Fibromyalgia GERD (gastroesophageal reflux disease) Migraine variant 06/28/2008 Post concussion syndrome 02/11/2017 Sleep apnea, obstructive Past Surgical History: Procedure Laterality Date INJECT DX/THER SUBSTANCE INTERLAMINAR CERVICAL/THORACIC W IMAGE GUIDE 03/31/2019 INJECTION SPINE LUMBAR CERVICAL OR THORACIC performed by Dale Marcossins, DO at OR [facility] INJECT DX/THER SUBSTANCE INTERLAMINAR CERVICAL/THORACIC W IMAGE GUIDE 05/24/2020 INJECTION SPINE LUMBAR CERVICAL OR THORACIC performed by Dale Julio Cousins, DO at OR [facility] INJECT DX/THER SUBSTANCE INTERLAMINAR CERVICAL/THORACIC W IMAGE GUIDE 01/01/2022 INJECTION SPINE LUMBAR CERVICAL OR THORACIC performed by Dale Julio Cousins, DO at OR [facility] PAP SCREEN 07/27/02 WNL PAP SCREEN 08/04/03 WNL PAP SCREEN 08/01/04 WNL PAP SCREEN 07/21/08 wnl PAP SCREEN 11/05/2009 WNL, negative for malignancy TOTAL ABD HYSTERECTOMY W/WO REMOVAL OF TUBE(S) 03/12/2010 Dr. 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 Tobacco Use Smoking status: Every Day Current packs/day: 0.50 Average packs/day: 0.5 packs/day for 21.0 years (10.5 ttl pk-yrs) Types: Cigarettes Smokeless tobacco: Never Tobacco comments: pt reports using vapor cigarette/no passive smoke Vaping Use Vaping status: Former Substance and Sexual Activity Alcohol use: No Drug use: Never Sexual activity: Not on file Other Topics Concern Not on file Social History Narrative Not on file Social Needs Financial Resource Strain: Not on file Food Insecurity: Not on file Transportation Needs: Not on file Social Connections: Not on file Housing Stability: Not on file Family History Problem Relation Name Age of Onset Heart Disorder Grandfather (Maternal) mi Heart Disorder Grandfather (Paternal) mi @ 87 Heart Disorder Grandmother (Paternal) mi @ 85 Allergies Mother rhinitis Allergies Daughter nasal allergies Review of patient's allergies indicates: Allergen Reactions Metaxalone Naproxen Panixine Disperdose Rash Objective There were no vitals taken for this visit. ASSESSMENT/PLAN: ICD-10-CM 1. Patient left without being seen Z53.21 No orders of the defined types were placed in this encounter. Despite restarting my computer and restarting the video visit twice, she was not able to hear me. As such, she will need to be rescheduled. I did notify her of this via the chat. Given that her chiefcomplaint was knee pain, I did recommend she schedule an in-person appointment. Follow Up: Return if symptoms worsen or fail to improve. Dixon Almonte MD All, some, or none of the text in this note may have been generated using an ambient documentation service, depending on the visit type or situation. If the ambient documentation service was used, I discussed the use of a device to record and summarize our discussion today. All persons present during the encounter consented to its use. documented in this encounter Plan of Treatment [...] as of this encounter Visit Diagnoses Diagnosis Patient left without being seen- Primary Surgical or other procedure not carried out because of patient's decision documented in this encounter Care Teams Plastic Surgery Nurse Relationship Specialty Start Date End Date Rogelio Moreira III, MD [address] [facility] [address] PCP - General 04/01/07 documented as of this encounter
--- OUTSIDE RECORDS SUMMARY | 2024-03-24 20:01 | External Medical Summary | Summary of Care ---
Author Name Unknown Organization [facility] Address [address] [place] [address] Phone [phone] Care Team Providers Care Director Of Income Tax Name Role Phone Harish HOLMAN MD, Rogelio Jeffers Primary Care Provider [phone] Reason for Visit * Reason Onset Date Comments Advice 03/11/2024 Encounter Details Date Type Department Care Team (Late st Contact Info) Description 03/11/2024 Telephone Family Practice [facility] [address] [place] [id number] Dixon Almonte MD [address] [place] [address] Advice Allergies Active Allergy Reactions Criticality Noted Date [...] filedocumented as of this encounter Care Teams Director Of Income Tax Relationship Specialty Start Date End Date Rogelio Moreira III, MD [address] [place] [address] PCP - General 04/01/07 documented as of this encounter
--- OUTSIDE RECORDS SUMMARY | 2024-03-24 20:01 | External Medical Summary | Summary of Care ---
Author Name Unknown Organization [facility] Address [address] [place] [address] Phone [phone] Care Team Providers Care Fish Cake Maker Name Role Phone Harish HOLMAN MD, Rogelio Jeffers Primary Care Provider [phone] Encounter Details Date Type Department Care Team (Late st Contact Info) Description 01/19/2024 Orders Only PATIENT PORTAL DO NOT DELETE THIS DEPT USED BY [place] [id number] Allergies Active Allergy Reactions Criticality Noted Date Comments Metaxalone 05/25/2013 Naproxen 05/25/2013 Panixine Disperdose Rash 02/28/2008 documented as of this encounter (statuses as of 01/19/2024) Medications Medication Sig Dispensed Refills Start Date [...] as of this encounter (statuses as of 01/19/2024) Active Problems Problem Noted Date Diagnosed Date [...] as of this encounter (statuses as of 01/19/2024) Resolved Problems Problem Noted Date Diagnosed Date Resolved Date Psoriasis 02/11/2017 02/02/2023 Cough 07/29/2016 05/07/2018 documented as of this encounter (statuses as of 01/19/2024) Immunizations Name Administration Dates Next Due PPD [...] AM EST Office Visit Family Practice State [facility] [address] [facility] [address] [place] [address] [place] Rogelio HOLMAN MD 200 [facility] [place] [address] Health Maintenance Due Date Last Done Comments [...] filedocumented as of this encounter Care Teams Fish Cake Maker Relationship Specialty Start Date End Date Rogelio Moreira III, MD 200 [place] [address] PCP - General 04/01/07 documented as of this encounter
--- OUTSIDE RECORDS SUMMARY | 2024-03-24 20:01 | External Medical Summary | Summary of Care ---
Author Name Unknown Organization [facility] Address [address] [place] [address] Phone [phone] Care Team Providers Care Furniture Dipper Name Role Phone Harish HOLMAN MD, Rogelio Jeffers Primary Care Provider [phone] Reason for Visit * Reason Onset Date Comments Advice 03/11/202403/11 tried to c all pt. Appt/knee pain Encounter Details Date Type Department Care Team (Late st Contact Info) Description 03/11/[address] [facility] [place] [address] [place] [address] Dixon Almonte MD [address] [place] [address] Advice (03/11 tried to call pt. Appt/knee... Allergies Active Allergy Reactions Criticality Noted Date Comments Metaxalone 05/25/2013 Naproxen 05/25/2013 Panixine Disperdose Rash 02/28/2008 documented as of this encounter (statuses as of 03/14/2024) Medications BUSPIRONE HCL 30 MG PO TABS [...] as of this encounter (statuses as of 03/14/2024) Active Problems Problem Noted Date Diagnosed Date [...] as of this encounter (statuses as of 03/14/2024) Resolved Problems Problem Noted Date Diagnosed Date Resolved Date Psoriasis 02/11/2017 02/02/2023 Cough 07/29/2016 05/07/2018 ADVANCE DIRECTIVE INFORMATION 12/18/2004 01/25/2024 Overview (12/18/2004): No, Advance Directive brochure offered , patient declined. documented as of this encounter (statuses as of 03/14/2024) Immunizations Name Administration Dates Next Due PPD [...] filedocumented as of this encounter Care Teams Furniture Dipper Relationship Specialty Start Date End Date Rogelio Moreira III, MD [address] [place], [place] [address] PCP - General 04/01/07 documented as of this encounter
--- OUTSIDE RECORDS SUMMARY | 2024-03-24 20:01 | External Medical Summary | Summary of Care ---
Author Name Unknown Organization [facility] Address [address] [place] [address] Phone [phone] Care Team Providers Care Scanner Operator Name Role Phone Harish HOLMAN MD, Dewayne Jeffers Primary Care Provider [phone] Reason for Visit * Reason Comments eRx-Medication Refill Encounter Details Date Type Department Care Team (Late st Contact Info) Description 01/14/2024 Refill Family Practice [facility] [address] [facility] [place] [address] Dewayne Johnson III, MD [address] [place] [address] Encounter for long-term (current) use of medications* Allergies Active Allergy Reactions Criticality Noted Date [...] OR WHEEZING. 54 g 2 02/02/2023 Active Budesonide-Formot keaton Fumarate 80-4.5 MCG/ACT Inhalation Aerosol (Symbicort) Inhale 2 Puffs by mouth in the morning and 2 Puffs before bedtime. Rinse after. 10.2 g 8 02/02/2023 Active Fluticasone-Salme terol 100-50 MCG/ACT Inhalation Aerosol Powder Breath Activated (Wixela Inhub) Inhale 1 Puff by mouth in the morning and 1 Puff before bedtime. 180 Each 1 02/17/2023 Active Naltrexone HCl 50 MG Oral Tablet (Revia)Indication s:Abnormal weight gain,Class 2 severe obesity due to [...] HOUR BEFORE DINNER 90 Capsule 01/15/2024 Active Atorvastatin Calcium 20 MG Oral Tablet (Lipitor) Take 1 Tablet by mouth in the morning. 90 Tablet 3 02/02/2023 4 Discontinued Famotidine 20 MG Oral Tablet (Pepcid) Take 1 Tablet by mouth daily as needed for Heartburn. 90 Tablet 3 02/02/2023 4 Discontinued Omeprazole 40 MG Oral Capsule Delayed Release (PriLOSEC) TAKE 1 CAPSULE BY MOUTH ONCE DAILY 1 HOUR BEFORE DINNER. 90 Capsule 3 02/02/2023 4 Discontinued documented as of this encounter (statuses [...] encounter Miscellaneous Notes * Telephone Encounter - Kvng [place] - 01/19/2024 6:01 AM EDT Received message from [facility] regarding patient needing labs. Patient was notified. Successfully contacted patient and provided [facility] message. * Telephone Encounter - Isa Haney RP - 01/15/2024 3:48 PM EDTSigned Prescriptions: Disp Refills Atorvastatin Calcium 20 MG Oral Tablet (Li*90 Tab*0 Sig: TAKE 1 TABLET BY MOUTH IN THE MORNING Authorizing Provider: DEWAYNE JOHNSON III Ordering User: ISA HANEY Famotidine 20 MG Oral Tablet (Pepcid) 90 Tab*0 Sig: TAKE 1 TABLET BY MOUTH ONCE DAILY NEEDED FOR HEARTBURN Authorizing Provider: DEWAYNE JOHNSON III Ordering U ser: ISA HANEY Omeprazole 40 MG Oral Capsule Delayed Rele*90 Cap*0 Sig: TAKE 1 CAPSULE BY MOUTH ONCE DAILY 1 HOUR BEFORE DINNER Authorizing Provider: DEWAYNE JOHNSON III Ordering User: ISA HANEY * Telephone Encounter - Isa Haney RPh - 01/15/2024 3:47 PM EDT Provided 90 days supply with 0 refill(s). Per refill protocol patient should have routine labs on file within past year. Reviewed AMP report, Care Gaps/Health Maintenance, medications list, and for any routine labs typically ordered for this patient. Lab orders placed. Please contact patient to advise of labs ordered for blood draw. Recommend patient to fast if able for labs. Patient may still have water and regular medications. Advise to obtain labs before requesting the next refill. Thanks, Aleena JeronimoD Clinical Pharmacist [facility] [phone] 01/15/2024, 3:48 PM documented in this encounter Plan of Treatment Upcoming Encounters Date Type Department Care Team (Late st Contact Info) Description 02/17/2024 9:00 AM EST Office Visit Family Practice [facility] [place] [address] [place] [address] Dewayne Johnson III, MD [address] [place] [address] Scheduled Orders Name Type Priority Associated Diagnoses Orde r Schedule LIPID PANEL WITH DIRECT LDL IF TG IS HIGH Lab Routine Encounter for long-term (current) use of medications Expected: 01/22/2024 (Approximate), Expires: 01/14/2025 COMPREHENSIVE METABOLIC PANEL Lab Routine Encounter for long-term (current) use of medications Expected: 01/22/2024 (Approximate), Expires: 01/14/2025 VITAMIN B12 Lab Routine Encounter for long-term (current) use of medications Expected: 01/22/2024 (Approximate), Expires: 01/14/2025 MAGNESIUM Lab Routine Encounter for long-term (current) use of medications Expected: 01/22/2024 (Approximate), Expires: 01/14/2025 Health Maintenance Due Date Last Done Comments [...] as of this encounter Visit Diagnoses Diagnosis Encounter for long-term (current) use of medications- Primary Encounter for long-term (current) use of other medications documented in this encounter Care Teams Scanner Operator Relationship Specialty Start Date End Date Dewayne Johnson III, MD [address] [place] [address] PCP - General 04/01/07 documented as of this encounter
--- OUTSIDE RECORDS SUMMARY | 2024-03-24 20:02 | External Medical Summary ---
Author Name Unknown Address Unknown Organization [id number]:[facility] [place] [facility] [place] [address] Laboratory Report Ordering Provider Test Date Status MINISTERIO DE JESUS 10/23/2023 09:53:55 Final Observation Date Value Abnormality Reference (Units ) Status HbA1C 10/23/2023 09:53:55 6.2 Above high normal 4. 0-5.6 (%) Final The use of HbA1c to monitor glycemic status is based on normal hemoglobin and HbA composition. This test should not be used in patients with abnormal hemoglobin that affects the half life of the red blood cell or the in vivo glycation rates. Glucose, estimated average 10/23/2023 09:53:55 131 Above high normal <126 (mg/dL) Anuj kowalski Performing Location [facility] [place] [address] [place] [address]
--- OUTSIDE RECORDS SUMMARY | 2024-03-24 20:02 | External Medical Summary | Summary of Care ---
Author Name Unknown Organization [facility] Address [address] [place] [address] Phone [phone] Care Team Providers Care Ward Nurse Name Role Phone Harish HOLMAN MD, Rogelio Jeffers Primary Care Provider [phone] Reason for Visit * Evaluate & Treat - Unlimited Visits (Within 30 days (routine)) - Authorized Specialty Diagnoses / Procedures Referred By Contact Referred To Contact GI NUTRITION/IM / Gastroenterology Diagnoses Severe obesity with body mass index (BMI) of 35.0 to 39.9 with serious comorbidity (HCC) Rogelio Moreira III, MD [address] [place] [address] Referral ID Status Reason Start Date Expiration Date Visits Requested Visits Authorized [id number] Authorized Specialty Services Required 08/26/[phone] Encounter Details Date Type Department Care Team (Latest Contact Info) Description 10/20/2023 10:40 AM EDT Telemedicine Nutrition & Weight Management, [place] [address] [place] [address] Kathy Ovalle CRNP [address] [place] [address] Abnormal weight gain*; Class 2 severe obesity due to excess calories with serious comorbidity and body mass index (BMI) of 39.0 to 39.9 in adult (HCC); THOMAS (obstructive sleep apnea); Gastroesophageal reflux disease, unspecified whether esophagitis present; Fibromyalgia; DDD (degenerative disc disease), lumbar; Migraine variant; Depression with anxiety; Tobacco use disorder; Hepatic steatosis; Nephrolithiasis; Mixed hyperlipidemia Allergies Active Allergy Reactions Criticality Noted Date Comments Metaxalone 05/25/2013 Naproxen 05/25/2013 Panixine Disperdose Rash 02/28/2008 documented as of this encounter (statuses as of 10/20/2023) Medications Medication Sig Dispensed Refills Start Date [...] OR WHEEZING. 54 g 2 02/02/2023 Active Budesonide-Formote rol Fumarate 80-4.5 MCG/ACT Inhalation Aerosol (Symbicort) Inhale 2 Puffs by mouth in the morning and 2 Puffs before bedtime. Rinse after. 10.2 g 8 02/02/2023 Active Fluticasone-Salmet keaton 100-50 MCG/ACT Inhalation Aerosol Powder Breath Activated (Wixela Inhub) Inhale 1 Puff by mouth in the morning and 1 Puff before bedtime. 180 Each 1 02/17/2023 Active Naltrexone HCl 50 MG Oral Tablet (Revia)Indications :Abnormal weight gain,Class 2 severe obesity due to excess calories with serious comorbidity and body mass index (BMI) of 39.0 to 39.9 in adult (HCC) Take 1/2 tab by mouth once a day for 1 week then take 1/2 tab twice a day (morning & late afternoon) 30 Tablet 2 10/20/2023 Active Ajovy 225 MG/1.5ML Subcutaneous Solution Auto-injector 11/28/2021 4 Discontinue d(Medicatio n List Clean Up) documented as of this encounter (statuses as of 10/20/2023) Active Problems Problem Noted Date Diagnosed Date THOMAS (obstructive sleep apnea) 04/18/2021 Severe obesity [...] as of this encounter (statuses as of 10/20/2023) Resolved Problems Problem Noted Date Diagnosed Date Resolved Date Psoriasis 02/11/2017 02/02/2023 Cough 07/29/2016 05/07/2018 documented as of this encounter (statuses as of 10/20/2023) Immunizations Name Administration Dates Next Due PPD [...] on file documented as of this encounter Last Filed Vital Signs Vital Sign Reading Time Taken Comments Blood Pressure - - Pulse - - Temperature - - Respiratory Rate - - Oxygen Saturation - - Inhaled Oxygen Concentration - - Weight 97.5 kg (215 lb) 10/20/2023 10:59 AM EDT Height 162.6 cm (5' 4") 10/20/2023 10:59 AM EDT Body Mass Index 36.9 10/20/2023 10:59 AM EDT documented in this encounter Patient Instructions * Patient Instructions* Kathy Ovalle CRNP - 10/20/2023 11:26 AM EDT Images from the original note were not included. Jannie, So nice to meet you today! I'm excited to work with you on your weight loss journey To help with quitting smoking you can call [id number] Medications are tools help make dietary changes and behavior changes easier. Follow up appointmentsare required to monitor dietary changes, behavior changes and to consider continuation of medications. Adequate nutrition--protein and dietary intake is imperative as discussed at visit. See informationbelow. If noticing inadequate nutrition or unhealthy, rapid weight loss--we will have to decrease and/or stop the medication. Generic components of Contrave-see medication education below Bupropion - Also used for anxiety and depression treatment and to quit using tobacco. It reduces hunger and increases energy and improves mood which reduces stress hormones. It can sometimes cause increased anxiety in some people, irritability, or insomnia. It can't be used if you have a history ofseizures and you will have to be weaned off of it or it can cause a seizure. Be careful with alcohol use as that can increase risk of seizures. Naltrexone - works by blocking the reward center in the brain (also used for opiate/alcohol addiction). You can't take this if you require treatment with opiate pain medication. Common side effects included but are not limited to constipation, dry mouth, anxiety/change in mood, upset stomach, rarely can cause high blood pressure and heart rate for which it would have to be stopped Week 1 add Naltrexone 25 mg in the am (1/2 tab of 50 mg) Week 2 increase Naltrexone to 25 mg in am and in the pm - common side effects included but are not limited to constipation, dry mouth, anxiety/change in mood, GI upset, nausea/vomiting; rarely can cause elevated Blood pressure & Heart rate for which it would have to be stopped; allergic reactions (stop immediately) - Goal is to lose ~5% wt loss in 3 mos, will stop med if no weight loss or if weight gain Advised of potential increase in depression symptoms with medications prescribed today. Advised to f/u with PCP for worsening of depression symptoms and instructed to report to ED and/or call crisis # [phone] or 911 with SI/HI Naltrexone instructions Avoid drinking alcohol while taking this drug. Do not take opioid drugs while you are taking this drug. Opioid drugs will not work. Do not take more opioid drugs to try to get them to work. Doing this may cause severe injury, coma, or . If you are addicted to opioid drugs and are given this drug, you may have signs of withdrawal. If you have questions, talk with your doctor. Possible side effects include feeling nervous/excitable, anxiety, headache, muscle cramps, constipation, diarrhea, nausea, vomiting, stomach pain, decreased appetite, increased thirst, trouble sleeping, dizziness, muscle/joint pain, signs of the common cold, and tooth pain. You can take this medication with or without food. However, administration with food or after mealsmay lessen any undesired gastrointestinal effects. If you miss a dose, take the missed dose as soon as you think about it. If it is close to the time for your next dose, skip the missed dose and go back to your normal time. Do not take 2 doses at thesame time. Recommendations: Today's goals outlined in RED below Keep a food log (use gwen [place] Wi Max Fitness Pal or Lose It!, [employer]) Start a daily multivitamin High protein, lower [...] link for foods and additional education https://[email or web address] [facility].org/ncal/Images/701166521%20Revised%656-67_[email or web address].pdf You may need to add daily metamucil, [...] a week (phone gwen: "Home Workout", Search YouSolar3Dube videos for age appropriate workout.) Increase physical activity--taking stairs, parking farther away, getting up if sitting for more than 40 minutes Aim for 2000 steps a day Yoga with Katie - [...] Super Creamer, [place] BetterHalf Unsweetened, Silk [place] Creamer Chips- Quest protein chips, Cheese crisps Bread- 647 wheat, Protein Keto bread, whole wheat manda bread, low carb/high protein wraps Pasta- Chickpea pasta, Pasta zero or similar Rice- Cauliflower rice, quinoa, brown rice Fruits- berries, cantaloupe, peaches, apples, oranges-try to avoid or limit bananas and grapes Yogurt- Ratio (25g protein), Skyr, Two good, Chobani 60 chivo or 100 chivo, Oikos triple zero Sugar alternatives- Stevia, Monk fruit, Swerve Protein Foods List Food Name Portion Calories Protein (g) Kidney beans (canned) cup 105 7 Beef top loin (broiled) 3 oz 170 25 Cheese -Syrian (fat free or lowfat) 1 oz/1 slice 60-80 6 Cottage cheese (fat free or 1% fat) cup 80-100 13 Cheese-mozzarella, part skim 1 oz 70 7 Ricotta cheese, part-skim cup 140 10 Chicken, white breast meat, no skin 3 oz 130 21 Cod, white, baked 3 oz 120 22 Crab, steamed 3 oz 82 17 Imitation Crab/Seafood 3 oz 90 10 Egg, whole or hard-boiled 1 egg 75 6 Egg whites/beaters/substitutes cup 50 10 Flounder 3 oz 100 21 Halibut 3 oz 120 22 Ham, lean 3 oz 125 15 Hamburger (>90% lean) 3 oz 150 15 Lobster, steamed 3 oz 75 15 Milk-skim, 1%, super skim 1 cup (8oz) 80-105 8 Soy milk (light) 1 cup 70 6 Chick peas (canned) cup 130 8 Pork tenderloin/chop loin 3 oz 130-150 21 Protein powders (many different brands) 1 scoop 110-160 16-26 Edison 3 oz 175 19 Shrimp, steamed 3 oz (12-5) 90 18 Soybeans (edamame) cup 130 11 Soy nuts cup 200 12 Steak, sirloin, trimmed 3 oz 155 25 Soy joaquín (Boca burger) 2.5 oz 100 13 Tofu, firm cup 125 15 Tuna, packed in water (can or pouch) 2.5-3 oz 70-100 16-18 [place] breast -from deli 2 oz 60 12 Veal loin 3 oz 3 oz 115 90 25 15 Veal leg (top round) 3 oz 150 23 Yogurt-light, nonfat cup 110 5-8 Slovak yogurt-fat free 6-8 oz 80-100 8-15 Other Fish (carey, perch, flounder, [place]) 3 oz 100-160 15-21 Boca burgers 3 oz 95-100 20 Pumpkin/squash seeds 3 oz 85 15 Nuts: peanuts, pistachios, almonds 1 oz 130 6 Huron seeds 1 oz 160 6 [place] butter 1 TB 100 2.4 Peanut butter 1 TB 95 4 SoyNut butter 1 TB 95 4.5 PB2 (peanut butter powder) 2 TB 45 5 Revised: November 2022 Naltrexone Oral Tablet Brands: ReVia Uses This medicine is used for the following purposes: drug addiction alcohol dependence Instructions Swallow with a full glass (8 oz) of water unless your doctor gives you different instructions. You may take with food to prevent stomach upset. This medicine will work best if you take it at about the same time every day. Store at room temperature away from heat, light, and moisture. Do not keep in the bathroom. It is important that you keep taking each dose of this medicine on time even if you are feeling well. If you forget to take a dose on time, take it as soon as you remember. If it is almost time for thenext dose, do not take the missed dose. Return to your normal schedule. Do not take 2 doses at one time. Drug interactions can change how medicines work or increase risk for side effects. Tell your healthcare providers about all medicines taken. Include prescription and advq-qix-xuqfvab medicines, vitamins, and herbal medicines. Speak with your doctor or pharmacist before starting or stopping any medicine. If you need to stop this medicine, your doctor may wish to gradually reduce the dosage before stopping. Keep all appointments for medical exams and tests while on this medicine. Cautions Tell your doctor and pharmacist if you ever had an allergic reaction to a medicine. This medicine may cause you to experience some withdrawal symptoms from your pain medication. Tell your doctor right away if you have unusual sweating, chills, stomach pain, diarrhea, yawning or irritability. Some patients taking this medicine have experienced serious side effects. Please speak with your doctor to understand the risks and benefits associated with this medicine. This medicine is associated with a rare, but serious problem of the liver. Speak to your doctor about the early signs of liver problems and the benefits and risks of using this medicine. Do not use the medication any more than instructed. This medicine may cause dizziness or fainting, especially after exercising or in hot weather. Be very careful when standing or sitting up quickly. If possible, avoid using with alcohol, marijuana, or other medicines that can cause dizziness or drowsiness. These include allergy/cold products, muscle relaxers, sleep aids, and pain relievers. Your ability to stay alert or to react quickly may be impaired by this medicine. Do not drive or operate machinery until you know how this medicine will affect you. Call the doctor if there are any signs of confusion or unusual changes in behavior. Tell the doctor or pharmacist if you are , planning to be , or . Contact your doctor immediately if you experience any swelling of your hands, face, lips, eyes, throat or tongue. Always carry an ID card or wear a medical alert bracelet indicating your medical condition. Do not share this medicine with anyone who has not been prescribed this medicine. Always refill this medicine before it runs out. Side Effects The following is a list of some common side effects from this medicine. Please speak with your doctor about what you should do if you experience these or other side effects. agitated feeling or trouble sleeping dizziness lack of energy and tiredness headaches nausea restlessness Call your doctor or get medical help right away if you notice any of these more serious side effects: abdominal cramps severe or persistent abdominal pain decreased awareness or responsiveness bone pain confusion diarrhea hallucinations (unusual thoughts, seeing or hearing things that are not real) pain in the joints signs of liver damage (such as yellowing of eye or skin, dark urine, or unusual tiredness) muscle aches, spasms or abnormal movements nervousness runny nose shortness of breath severe or persistent vomiting A few people may have an allergic reaction to this medicine. Symptoms can include difficulty breathing, skin rash, itching, swelling, or severe dizziness. If you notice any of these symptoms, seek medical help quickly. Extra Please speak with your doctor, nurse, or pharmacist if you have any questions about this medicine. [email or web address]/[email or web address] IMPORTANT NOTE: This document tells you briefly how to take your medicine, but it does not tell youall there is to know about it. Your doctor or pharmacist may give you other documents about your medicine. Please talk to them if you have any questions. Always follow their advice. There is a more complete description of this medicine available in Zimbabwean. Scan this code on your smartphone or tablet or use the web address below. You can also ask your pharmacist for a printout. If you have any questions, please ask your pharmacist. The display and use of this drug information is subject to Terms of Use. Copyright(c) 2022 [employer]. The [employer]. All rights reserved. This information is not intended as a substitute for professional medical care. Always follow your healthcare professional's instructions. Bupropion Oral Tablet Brands: Wellbutrin Uses This medicine is used for the following purposes: attention deficit hyperactivity disorder depression eating disorders stop smoking Instructions This medicine may be taken with or without food. Try to avoid taking the medicine at bedtime. Store at room temperature away from heat, light, and moisture. Do not keep in the bathroom. It may take several weeks for this medicine to fully work. It is important that you keep taking each dose of this medicine on time even if you are feeling well. If you forget to take a dose on time, take it as soon as you remember. If it is almost time for thenext dose, do not take the missed dose. Return to your normal schedule. Do not take 2 doses at one time. Drug interactions can change how medicines work or increase risk for side effects. Tell your healthcare providers about all medicines taken. Include prescription and egna-ook-ljfqtse medicines, vitamins, and herbal medicines. Speak with your doctor or pharmacist before starting or stopping any medicine. Tell your doctor if symptoms do not get better or if they get worse. Keep all appointments for medical exams and tests while on this medicine. Cautions Tell your doctor and pharmacist if you ever had an allergic reaction to a medicine. This medicine is associated with an increased risk for seizures. Please ask your doctor whether youmay be at risk for having a seizure while on this medicine. Do not use the medication any more than instructed. Your ability to stay alert or to react quickly may be impaired by this medicine. Do not drive or operate machinery until you know how this medicine will affect you. Please check with your doctor before drinking alcohol while on this medicine. Family should check on the patient often. Call the doctor if patient becomes more depressed, has thoughts of suicide, or shows changes in behavior. This medicine passes into breast milk. Ask your doctor before . During , this medicine should be used only when clearly needed. Talk to your doctor about the risks and benefits. Do not share this medicine with anyone who has not been prescribed this medicine. Some patients have serious side effects from this medicine. Ask your pharmacist to show you the information from the Food and Drug Administration (FDA) and discuss it with you. Side Effects The following is a list of some common side effects from this medicine. Please speak with your doctor about what you should do if you experience these or other side effects. agitated feeling or trouble sleeping change in appetite constipation dizziness or drowsiness dry mouth headaches high blood pressure muscle pain nausea and vomiting problems with sexual functions or desire sore throat stomach upset or abdominal pain sweating weight loss If you have any of the following side effects, you may be getting too much medicine. Please contactyour doctor to let them know about these side effects. confusion diarrhea fainting hallucinations (unusual thoughts, seeing or hearing things that are not real) pain in the joints tight or rigid muscles muscle trembling Call your doctor or get medical help right away if you notice any of these more serious side effects: chest pain pain in the eye fast or irregular heart beats dilation of the pupils seizures shortness of breath suicidal thoughts blurring or changes of vision seeing halos or colors around lights A few people may have an allergic reaction to this medicine. Symptoms can include difficulty breathing, skin rash, itching, swelling, or severe dizziness. If you notice any of these symptoms, seek medical help quickly. Extra Please speak with your doctor, nurse, or pharmacist if you have any questions about this medicine. [email or web address]-[email or web address]/[email or web address] IMPORTANT NOTE: This document tells you briefly how to take your medicine, but it does not tell youall there is to know about it. Your doctor or pharmacist may give you other documents about your medicine. Please talk to them if you have any questions. Always follow their advice. There is a more complete description of this medicine available in [place]an. Scan this code on your smartphone or tablet or use the web address below. You can also ask your pharmacist for a printout. If you have any questions, please ask your pharmacist. The display and use of this drug information is subject to Terms of Use. Copyright(c) 2022 [employer]. The [employer]. All rights reserved. This information is not intended as a substitute for professional medical care. Always follow your healthcare professional's instructions. documented in this encounter Progress Notes * Kathy Ovalle CRNP - 10/20/2023 10:40 AM EDT Images from the original note were not included. COMPREHENSIVE WEIGHT MANAGEMENT CLINIC CONSULTATION Referring Physician: Rogelio Moreira III, MD PCP: Rogelio Moreiar III, MD Patient location: HOME. I was in a hospital or clinic location. After connecting through [employer],patient was verified with two unique identifiers. Patient (or authorized legal self pay representative) was then informed that this was a Telemedicine visit and being conducted confidentially over secure lines. Methods to assure confidentiality were taken. Patient acknowledged consent and understanding of pr ivacy and security of the Telemedicine visit. The patient agreed to participate. Source of information: Patient Available records reviewed: Recent provider visits, Imaging, and Labs Reason for Referral: Weight Management. Jannie Allen is a 48 year old patient who presents to the [facility] for further recommendations and has the following medical conditions: Patient Active Problem List Diagnosis ADVANCE DIRECTIVE [...] 35.0 to 39.9 with serious comorbidity (HCC) HPI: Jannie Allen has a BMI of 36.9 and suffers from Class 2 obesity. At today's initial consultation, patient would like to receive counseling regarding healthy diet and lifestyle interventions that can make to help with abnormal weight gain. Jannie Allen is also open to the prospect of medicalmanagement for the treatment of obesity. Abnormal weight gain started: "was never heavy until had daughter" In the past, patient has tried conservative measures to lose weight. Previous Weight Management Interventions: The patient has tried weight loss in the past without significant half-way success. Previous interventions: Self-directed and Commercial. Completed program similar to TOPS and every diet pills "out there" The patient denies any past pharmacotherapy for weight loss . Weight history: Highest Body Weight: Is 215 pounds in 2023. Wt Readings from Last 8 Encounters: 04/18/21 95.3 kg (210 lb) 02/11/17 88.9 kg (196 lb) 07/28/16 86.2 kg (190 lb) 06/25/16 63.5 kg (140 lb) 05/02/11 89.5 kg (197 lb 6.4 oz) 03/20/10 82.1 kg (181 lb) 09/19/00 80.1 kg (176 lb 8 oz) Current Diet: Describes typical diet history/24 hr recall Breakfast: banana Lunch: skips Dinner: protein, veg, starch Snacks: not much snacking Drinks: water, coffee Restaurant meals: rare Activity: ADL-limited r/t DDD and fibromyalgia Social History: Alcohol: None Tobacco Use: yes, 1/2 ppd Drug Use: No Employment unemployed disabled Lives alone-in parents garage Social History Socioeconomic History Marital status: Spouse name: Not on file Number of children: 1 Years of education: Not on file Highest education level: Not on file 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 (Adult - for ages 18 years and over): Not on file Housing Stability: Not on file Past Medical History: Diagnosis Date Anxiety Chronic rhinitis DDD (degenerative disc disease), lumbar 02/11/2017 Depression with anxiety Fibromyalgia GERD (gastroesophageal reflux disease) Migraine variant 06/28/2008 Post concussion syndrome 02/11/2017 Sleep apnea, obstructive Past Surgical History: Procedure Laterality Date INJECT DX/THER SUBSTANCE INTERLAMINAR CERVICAL/THORACIC W IMAGE GUIDE 03/31/2019 INJECTION SPINE LUMBAR CERVICAL OR THORACIC performed by Dale Thurman, DO at OR [facility] INJECT DX/THER SUBSTANCE INTERLAMINAR CERVICAL/THORACIC W IMAGE GUIDE 05/24/2020 INJECTION SPINE LUMBAR CERVICAL OR THORACIC performed by Dale Thurman, DO at OR [facility] INJECT DX/THER SUBSTANCE INTERLAMINAR CERVICAL/THORACIC W IMAGE GUIDE 01/01/2022 INJECTION SPINE LUMBAR CERVICAL OR THORACIC performed by Dale Thurman DO at OR [facility] PAP SCREEN 07/27/02 WNL PAP SCREEN 08/04/03 WNL PAP SCREEN 08/01/04 WNL PAP SCREEN 07/21/08 wnl PAP SCREEN 11/05/2009 WNL, negative for malignancy TOTAL ABD HYSTERECTOMY W/WO REMOVAL OF TUBE(S) 03/12/2010 Dr. Mendoza Current Outpatient Medications Medication Sig Dispense Refill [...] 1 Tablet by mouth in the morning. Ajovy 225 MG/1.5ML Subcutaneous Solution Auto-injector CPAP every night at bedtime . buPROPion [...] 1 Puff before bedtime. 180 Each 1 No current facility-administered medications for this visit. Review of patient's allergies indicates: Allergen Reactions Metaxalone Naproxen Panixine Disperdose Rash Review of Systems: Constitutional: (+) weight change and (+) fatigue Eyes: Glaucoma No Retinopathy:no Cardiovascular Symptoms: No chest pain, No shortness of breath, No dyspnea on exertion, No orthopnea, No edema, Nopalpitations, and No syncope Hypertension: No BP Readings from Last 5 Encounters: 02/02/23 120/70 01/01/22 124/73 01/01/22 100/68 12/20/21 100/60 11/20/21 94/60 CAD/CHF/arrhythmias/valve disease: No Pulmonary Asthma: Yes-controlled w/inhaler COPD: No There are no exam notes on file for this visit. Sleep Apnea: Yes, on CPAP Endocrine Patient denies personal or family history of medullary thyroid carcinoma. Patient denies personal or family history of multiple endocrine neoplasia syndrome. Insulin Resistance: No Diabetes: No No results found for: "HEMOGLOBIN A1C" Other Endocrine abnormalities: NONE Lab Results Component Value Date/Time GLUCOSE - [facility] 90 11/20/2021 02:30 PM GLUCOSE - [facility] 93 10/01/2020 11:21 AM GLUCOSE - [facility] 94 07/22/2018 03:06 PM GLUCOSE - [facility] 82 07/15/2017 01:03 PM GLUCOSE - [facility] 97 04/21/2012 02:47 PM GLUCOSE URINE, POCT - [facility] Negative 12/20/2021 12:00 AM GLUCOSE, URINE - [facility] neg 05/07/2018 12:00 AM GLUCOSE, URINE - [facility] NORMAL 10/28/1996 04:21 PM GLUCOSE-OU[facility] 91 04/28/2018 12:00 AM Dyslipidemia: Yes, on treatment Results for orders placed or performed in visit on 04/28/14 LIPID PANEL Result Value Ref Range HOURS FASTING 12 hours Triglycerides 514 (H) <200 mg/dL Cholesterol 212 (H) <200 mg/dL HDL Cholesterol 30 (L) >39 mg/dL Cholesterol-HDL Ratio 7.1 LDL Cholesterol UNINTERPRETABLE RESULT 0 - 129 mg/dL Results for orders placed or performed in visit on 11/20/21 LIPID PANEL WITH DIRECT LDL IF TG IS HIGH Result Value Ref Range Triglycerides 211 (H) <=174 mg/dL Cholesterol 224 (H) <200 mg/dL HDL Cholesterol 32 (L) >49 mg/dL Non-HDL Cholesterol 192 (H) <=159 mg/dL LDL Cholesterol 150 (H) <=129 mg/dL GI Symptoms: No abdominal pain, No change in bowel habits, No significant change in appetite, No nausea, vomiting, diarrhea, or constipation, No hematemesis, No blood in stools or black tarry stools, Noabdominal bloating or early satiety, and No dysphagia GERD: Yes: Requiring medications: Yes Fatty Liver: yes Pancreatitis: no GB disease: no Gastroparesis: no Renal History of nephrolithiasis: yes CKD: no Musculoskeletal Osteoarthritis: Yes DDD of entire spine, fibromyalgia Functional Status: NO Impairment Reproductive Polycystic ovarian syndrome: No Menstrual Cycle: No Control: hysterectomy Neuro Stroke: No Seizures: No Pseudotumor: No Headaches chronically: Yes-topamax and Verapamil-Follows neurology Psychosocial Adjustment Issues: Yes, having issues with body image Depression: Stable Taking medication Other Confirmed Mental Health Diagnosis: anxiety/panic disorder OBJECTIVE: There were no vitals taken for this visit. General: Well-developed, non-dysmorphic, obese, comfortable, NAD HEENT: Normocephalic/atraumatic. Sclera non-icteric, MMM Neck: No visible thyromegaly or tracheal deviation. Lungs: no conversational dyspnea Psych: normal mood and affect Neuro: speech normal pitch and speed, AAOx3 ASSESSMENT AND PLAN: Jannie Allen is a 48 year old patient who presents for further weight management guidance. Abnormal weight gain /Body mass index is 36.9 kg/m. / Class II obesity. Explained to the patient that they can lose on average ~5-10% of current weight with medical management, ~10-15% with medication use, and ~40-60% with bariatric surgery. Discussed weight management options and the patient would like to proceed with conservative, medication, and surgical weight management. Discussed lifestyle changes as well as the following medication options (risks, benefits, side effects, and relation to current medical conditions): GLP-1RA (liraglutide, semaglutide) or GLP1/GIP (tirzepatide)-no qualifying dx- will check A1c to r/oDM Contrave (Buproprion/Naltrexone) Qsymia (Phentermine/Topiramate)-currently on topamax Metformin Phentermine-declines r/t side effects Orlistat-decline r/t side effects Jannie Manasa Allen has decided to move forward with the following medication in addition to lifestylemodifications (in order of preference): Contrave (Buproprion/Naltrexone) -add on naltrexone today Metformin-consider as add on or if A1c elevated has decided to pursue bariatric surgery : Given the patient's age, degree of obesity and multiple medical problems outlined above, I do believe that bariatric surgery may prove beneficial. Discussed with patient the risks and benefits of surgery. Declines Barriers are consistency, fibromyalgia, DDD. Motivators are feeling better, avoiding/reducing comorbid conditions Patient goals were discussed in detail at visit. Goals: Keep a food log (use gwen My Fitness Pal or Lose It!, MyNetDiary) Start a daily multivitamin High protein, lower carb. Focus on protein goal protein of 60-90 g/day. Don't skip meals. Eat breakfast within 1 hour of waking up. Physical activity: Start slow with a goal [...] for more than 40 minutes Aim for 5000 steps a day Return to see RD THOMAS (obstructive sleep apnea) Compliant w/CPAP Gastroesophageal reflux disease, unspecified whether esophagitis present [...] use disorder Currently on Bupropion Offer #[id number] Hepatic steatosis Noted on abd u/s Expect improvement with weight loss Nephrolithiasis Caution w/topamax, currently on for migraines Mixed hyperlipidemia On statin Expect improvement with weight loss Time spent with patient 60 minutes. More than 50% of my time spent with patient providing counseling about the benefits of weight loss, about the patient's nutritional status, detailed explanations about calorie count, types of nutrients to choose, and composition of the meals. Reviewed and discussed weight, weight trends and pertinent labs and test results. Motivational interview provided in order to prepare the patient to achieve future goals. The patient agreed to try all the plan discussed and return in three months. Patient was instructed to message or call in the meantime with any further concerns or questions. They were encouraged to call or send a patient portal message in the meantime with any questions orconcerns prior to their next clinic visit. Dr. Casillas. available in clinic for consultation as needed. [facility] [place] [address] [address] [facility] [address] P [phone] | F [phone] Patient Instructions Jannie, So nice to meet you today! I'm excited to work with you on your weight loss journey Medications are tools help make dietary changes and behavior changes easier. Follow up appointmentsare required to monitor dietary changes, behavior changes and to consider continuation of medications. Adequate nutrition--protein and dietary intake is imperative as discussed at visit. See informationbelow. If noticing inadequate nutrition or unhealthy, rapid weight loss--we will have to decrease and/or stop the medication. Generic components of Contrave-see medication education below Bupropion - Also used for anxiety and depression treatment and to quit using tobacco. It reduces hunger and increases energy and improves mood which reduces stress hormones. It can sometimes cause increased anxiety in some people, irritability, or insomnia. It can't be used if you have a history ofseizures and you will have to be weaned off of it or it can cause a seizure. Be careful with alcohol use as that can increase risk of seizures. Naltrexone - works by blocking the reward center in the brain (also used for opiate/alcohol addiction). You can't take this if you require treatment with opiate pain medication. Common side effects included but are not limited to constipation, dry mouth, anxiety/change in mood, upset stomach, rarely can cause high blood pressure and heart rate for which it would have to be stopped Week 1 add Naltrexone 25 mg in the am (1/2 tab of 50 mg) Week 2 increase Naltrexone to 25 mg in am and in the pm - common side effects included but are not limited to constipation, dry mouth, anxiety/change in mood, GI upset, nausea/vomiting; rarely can cause elevated Blood pressure & Heart rate for which it would have to be stopped; allergic reactions (stop immediately) - Goal is to lose ~5% wt loss in 3 mos, will stop med if no weight loss or if weight gain Advised of potential increase in depression symptoms with medications prescribed today. Advised to f/u with PCP for worsening of depression symptoms and instructed to report to ED and/or call crisis # [phone] or 911 with SI/HI Naltrexone instructions Avoid drinking alcohol while taking this drug. Do not take opioid drugs while you are taking this drug. Opioid drugs will not work. Do not take more opioid drugs to try to get them to work. Doing this may cause severe injury, coma, or . If you are addicted to opioid drugs and are given this drug, you may have signs of withdrawal. If you have questions, talk with your doctor. Possible side effects include feeling nervous/excitable, anxiety, headache, muscle cramps, constipation, diarrhea, nausea, vomiting, stomach pain, decreased appetite, increased thirst, trouble sleeping, dizziness, muscle/joint pain, signs of the common cold, and tooth pain. You can take this medication with or without food. However, administration with food or after mealsmay lessen any undesired gastrointestinal effects. If you miss a dose, take the missed dose as soon as you think about it. If it is close to the time for your next dose, skip the missed dose and go back to your normal time. Do not take 2 doses at thesame time. Recommendations: Today's goals outlined in RED below [...] link for foods and additional education [email or web address] You may need to add daily metamucil, [...] for more than 40 minutes Aim for 2000 steps a day Yoga with Katie - [...] Super Creamer, [place] BetterHalf Unsweetened, Silk [place] Creamer Chips- Quest protein chips, Cheese crisps Bread- 647 wheat, Protein Keto bread, whole wheat manda bread, low carb/high protein wraps Pasta- Chickpea pasta, Pasta zero or similar Rice- Cauliflower rice, quinoa, brown rice Fruits- berries, cantaloupe, peaches, apples, oranges-try to avoid or limit bananas and grapes Yogurt- Ratio (25g protein), Skyr, Two good, Chobani 60 chivo or 100 chivo, Oikos triple zero Sugar alternatives- Stevia, Monk fruit, Swerve Protein Foods List Food Name Portion Calories Protein (g) Kidney beans (canned) cup 105 7 Beef top loin (broiled) 3 oz 170 25 Cheese -Syrian (fat free or lowfat) 1 oz/1 slice 60-80 6 Cottage cheese (fat free or 1% fat) cup 80-100 13 Cheese-mozzarella, part skim 1 oz 70 7 Ricotta cheese, part-skim cup 140 10 Chicken, white breast meat, no skin 3 oz 130 21 Cod, white, baked 3 oz 120 22 Crab, steamed 3 oz 82 17 Imitation Crab/Seafood 3 oz 90 10 Egg, whole or hard-boiled 1 egg 75 6 Egg whites/beaters/substitutes cup 50 10 Flounder 3 oz 100 21 Halibut 3 oz 120 22 Ham, lean 3 oz 125 15 Hamburger (>90% lean) 3 oz 150 15 Lobster, steamed 3 oz 75 15 Milk-skim, 1%, super skim 1 cup (8oz) 80-105 8 Soy milk (light) 1 cup 70 6 Chick peas (canned) cup 130 8 Pork tenderloin/chop loin 3 oz 130-150 21 Protein powders (many different brands) 1 scoop 110-160 16-26 [place] 3 oz 175 19 Shrimp, steamed 3 oz (12-5) 90 18 Soybeans (edamame) cup 130 11 Soy nuts cup 200 12 Steak, sirloin, trimmed 3 oz 155 25 Soy joaquín (Boca burger) 2.5 oz 100 13 Tofu, firm cup 125 15 Tuna, packed in water (can or pouch) 2.5-3 oz 70-100 16-18 [place] breast -from deli 2 oz 60 12 Veal loin 3 oz 3 oz 115 90 25 15 Veal leg (top round) 3 oz 150 23 Yogurt-light, nonfat cup 110 5-8 Slovak yogurt-fat free 6-8 oz 80-100 8-15 Other Fish (carey, perch, flounder, [place]) 3 oz 100-160 15-21 Boca burgers 3 oz 95-100 20 Pumpkin/squash seeds 3 oz 85 15 Nuts: peanuts, pistachios, almonds 1 oz 130 6 [place] seeds 1 oz 160 6 [place] butter 1 TB 100 2.4 Peanut butter 1 TB 95 4 SoyNut butter 1 TB 95 4.5 PB2 (peanut butter powder) 2 TB 45 5 Revised: November 2022 Naltrexone Oral Tablet Brands: ReVia Uses This medicine is used for the following purposes: drug addiction alcohol dependence Instructions Swallow with a full glass (8 oz) of water unless your doctor gives you different instructions. You may take with food to prevent stomach upset. This medicine will work best if you take it at about the same time every day. Store at room temperature away from heat, light, and moisture. Do not keep in the bathroom. It is important that you keep taking each dose of this medicine on time even if you are feeling well. If you forget to take a dose on time, take it as soon as you remember. If it is almost time for thenext dose, do not take the missed dose. Return to your normal schedule. Do not take 2 doses at one time. Drug interactions can change how medicines work or increase risk for side effects. Tell your healthcare providers about all medicines taken. Include prescription and tfld-lgv-oehhekr medicines, vitamins, and herbal medicines. Speak with your doctor or pharmacist before starting or stopping any medicine. If you need to stop this medicine, your doctor may wish to gradually reduce the dosage before stopping. Keep all appointments for medical exams and tests while on this medicine. Cautions Tell your doctor and pharmacist if you ever had an allergic reaction to a medicine. This medicine may cause you to experience some withdrawal symptoms from your pain medication. Tell your doctor right away if you have unusual sweating, chills, stomach pain, diarrhea, yawning or irritability. Some patients taking this medicine have experienced serious side effects. Please speak with your doctor to understand the risks and benefits associated with this medicine. This medicine is associated with a rare, but serious problem of the liver. Speak to your doctor about the early signs of liver problems and the benefits and risks of using this medicine. Do not use the medication any more than instructed. This medicine may cause dizziness or fainting, especially after exercising or in hot weather. Be very careful when standing or sitting up quickly. If possible, avoid using with alcohol, marijuana, or other medicines that can cause dizziness or drowsiness. These include allergy/cold products, muscle relaxers, sleep aids, and pain relievers. Your ability to stay alert or to react quickly may be impaired by this medicine. Do not drive or operate machinery until you know how this medicine will affect you. Call the doctor if there are any signs of confusion or unusual changes in behavior. Tell the doctor or pharmacist if you are , planning to be , or . Contact your doctor immediately if you experience any swelling of your hands, face, lips, eyes, throat or tongue. Always carry an ID card or wear a medical alert bracelet indicating your medical condition. Do not share this medicine with anyone who has not been prescribed this medicine. Always refill this medicine before it runs out. Side Effects The following is a list of some common side effects from this medicine. Please speak with your doctor about what you should do if you experience these or other side effects. agitated feeling or trouble sleeping dizziness lack of energy and tiredness headaches nausea restlessness Call your doctor or get medical help right away if you notice any of these more serious side effects: abdominal cramps severe or persistent abdominal pain decreased awareness or responsiveness bone pain confusion diarrhea hallucinations (unusual thoughts, seeing or hearing things that are not real) pain in the joints signs of liver damage (such as yellowing of eye or skin, dark urine, or unusual tiredness) muscle aches, spasms or abnormal movements nervousness runny nose shortness of breath severe or persistent vomiting A few people may have an allergic reaction to this medicine. Symptoms can include difficulty breathing, skin rash, itching, swelling, or severe dizziness. If you notice any of these symptoms, seek medical help quickly. Extra Please speak with your doctor, nurse, or pharmacist if you have any questions about this medicine. [email or web address] IMPORTANT NOTE: This document tells you briefly how to take your medicine, but it does not tell youall there is to know about it. Your doctor or pharmacist may give you other documents about your medicine. Please talk to them if you have any questions. Always follow their advice. There is a more complete description of this medicine available in [place]an. Scan this code on your smartphone or tablet or use the web address below. You can also ask your pharmacist for a printout. If you have any questions, please ask your pharmacist. The display and use of this drug information is subject to Terms of Use. Copyright(c) 2022 [employer]. The [employer]. All rights reserved. This information is not intended as a substitute for professional medical care. Always follow your healthcare professional's instructions. Bupropion Oral Tablet Brands: Wellbutrin Uses This medicine is used for the following purposes: attention deficit hyperactivity disorder depression eating disorders stop smoking Instructions This medicine may be taken with or without food. Try to avoid taking the medicine at bedtime. Store at room temperature away from heat, light, and moisture. Do not keep in the bathroom. It may take several weeks for this medicine to fully work. It is important that you keep taking each dose of this medicine on time even if you are feeling well. If you forget to take a dose on time, take it as soon as you remember. If it is almost time for thenext dose, do not take the missed dose. Return to your normal schedule. Do not take 2 doses at one time. Drug interactions can change how medicines work or increase risk for side effects. Tell your healthcare providers about all medicines taken. Include prescription and vwgt-nmv-ijemtgh medicines, vitamins, and herbal medicines. Speak with your doctor or pharmacist before starting or stopping any medicine. Tell your doctor if symptoms do not get better or if they get worse. Keep all appointments for medical exams and tests while on this medicine. Cautions Tell your doctor and pharmacist if you ever had an allergic reaction to a medicine. This medicine is associated with an increased risk for seizures. Please ask your doctor whether youmay be at risk for having a seizure while on this medicine. Do not use the medication any more than instructed. Your ability to stay alert or to react quickly may be impaired by this medicine. Do not drive or operate machinery until you know how this medicine will affect you. Please check with your doctor before drinking alcohol while on this medicine. Family should check on the patient often. Call the doctor if patient becomes more depressed, has thoughts of suicide, or shows changes in behavior. This medicine passes into breast milk. Ask your doctor before . During , this medicine should be used only when clearly needed. Talk to your doctor about the risks and benefits. Do not share this medicine with anyone who has not been prescribed this medicine. Some patients have serious side effects from this medicine. Ask your pharmacist to show you the information from the Food and Drug Administration (FDA) and discuss it with you. Side Effects The following is a list of some common side effects from this medicine. Please speak with your doctor about what you should do if you experience these or other side effects. agitated feeling or trouble sleeping change in appetite constipation dizziness or drowsiness dry mouth headaches high blood pressure muscle pain nausea and vomiting problems with sexual functions or desire sore throat stomach upset or abdominal pain sweating weight loss If you have any of the following side effects, you may be getting too much medicine. Please contactyour doctor to let them know about these side effects. confusion diarrhea fainting hallucinations (unusual thoughts, seeing or hearing things that are not real) pain in the joints tight or rigid muscles muscle trembling Call your doctor or get medical help right away if you notice any of these more serious side effects: chest pain pain in the eye fast or irregular heart beats dilation of the pupils seizures shortness of breath suicidal thoughts blurring or changes of vision seeing halos or colors around lights A few people may have an allergic reaction to this medicine. Symptoms can include difficulty breathing, skin rash, itching, swelling, or severe dizziness. If you notice any of these symptoms, seek medical help quickly. Extra Please speak with your doctor, nurse, or pharmacist if you have any questions about this medicine. [email or web address] IMPORTANT NOTE: This document tells you briefly how to take your medicine, but it does not tell youall there is to know about it. Your doctor or pharmacist may give you other documents about your medicine. Please talk to them if you have any questions. Always follow their advice. There is a more complete description of this medicine available in [place]an. Scan this code on your smartphone or tablet or use the web address below. You can also ask your pharmacist for a printout. If you have any questions, please ask your pharmacist. The display and use of this drug information is subject to Terms of Use. Copyright(c) 2022 [employer]. 9071-1528 The [employer]sky.[employer]. All rights reserved. This information is not intended as a substitute for professional medical care. Always follow your healthcare professional's instructions. documented in this encounter Plan of Treatment Upcoming Encounters Date Type Department Care Team (Late st Contact Info) Description 02/09/2024 10:00 AM EST Telemedicine Nutrition [facility] Management, [place] [address] [place] [address] Chacha Casillas MD [address] [place] [address] Scheduled Orders Name Type Priority Associated Diagnoses Orde r Schedule HEMOGLOBIN A1C Lab Routine Abnormal weight gain Class 2 severe obesity due to excess calories with serious comorbidity and body mass index (BMI) of 39.0 to 39.9 in adult (HCC) THOMAS (obstructive sleep apnea) Hepatic steatosis Mixed hyperlipidemia Expected: 10/20/2023, Expires: 10/19/2024 Health Maintenance Due Date Last Done Comments Pneumococcal Vaccine: Pediatrics (0 to 5 Years) and At-Risk Patients (6 to 64 Years) (1 of 2 - PCV) 06/10/1979 Hepatitis C Screening 06/10/1991 DTaP,Tdap,and Td Vaccines (1 - Tdap) 1992 Hepatitis B Vaccine (1 of 3 - 19+ 3-dose series) 1992 Cologuard 2018 Colonoscopy 2018 Colorectal Cancer Screening 2018 Fecal Occult Blood Test 2018 Sigmoidoscopy 2018 Depression Monitoring 11/20/2022 11/20/2021 COVID-19 Vaccine (1 - 2022- season) 2022 Zoster Vaccines (1 of 2) 06/10/2023 Mammogram 11/14/2023 11/13/2022, 10/22, 08/31/2018 Influenza Vaccine (FLU shot) (#1) 2023 Diabetes Screening 11/20/2024 11/20/2021, 0 10/01/2020, 07/22/2018, Additional history exists Lipid Panel 11/20/2026 11/20/2021, 09/20, 09/09/2018, Additional history exists HPV (Gardasil) Vaccine Aged Out No lo nger eligible based on patient's age to complete this topic MENINGOCOCCAL (MENACTRA/MENVEO) Aged Out No longer eligible based on patient's age to complete this topic documented as of this encounter Medical Devices Not on filedocumented as of this encounter Visit Diagnoses Diagnosis Abnormal weight gain- Primary Class 2 severe obesity due to excess calories with serious comorbidity and body mass index (BMI) of 39.0 to 39.9 in adult (HCC) THOMAS (obstructive sleep apnea) Obstructive sleep apnea (adult) (pediatric) Gastroesophageal reflux disease, unspecified whether esophagitis present Fibromyalgia Mylagia and myositis, unspecified DDD (degenerative disc disease), lumbar Degeneration of lumbar or lumbosacral intervertebral disc Migraine variant Variants of migraine, not elsewhere classified, without mention of intractable migraine without mention of status migrainosus Depression with anxiety Dysthymic disorder Tobacco use disorder Hepatic steatosis Other chronic nonalcoholic liver disease Nephrolithiasis Calculus of kidney Mixed hyperlipidemia documented in this encounter Care Teams Ward Nurse Relationship Specialty Start Date End Date Rogelio Moreira III, MD [address] [place] [address] PCP - General 04/01/07 documented as of this encounter
--- OUTSIDE RECORDS SUMMARY | 2024-03-24 20:02 | External Medical Summary | Summary of Care ---
Author Name Unknown Organization [facility] Address [address] [place] [address] Phone [phone] Care Team Providers Care Public Speaking Teacher Name Role Phone Harish HOLMAN MD, Rogelio Jeffers Primary Care Provider [phone] Reason for Visit * Reason Onset Date Comments Health Maintenance 10/22/2023 Encounter Details Date Type Department Care Team (Late st Contact Info) Description 10/22/2023 Telephone Family Practice [facility] [place] [address] [facility] [place] [address] Rogelio Moreira III, MD [address] [place] [address] Health Maintenance Allergies Active Allergy Reactions Criticality Noted Date Comments Metaxalone 05/25/2013 Naproxen 05/25/2013 Panixine Disperdose Rash 02/28/2008 documented as of this encounter (statuses as of 10/22/2023) Medications Medication Sig Dispensed Refills Start Date [...] as of this encounter (statuses as of 10/22/2023) Active Problems Problem Noted Date Diagnosed Date [...] as of this encounter (statuses as of 10/22/2023) Resolved Problems Problem Noted Date Diagnosed Date Resolved Date Psoriasis 02/11/2017 02/02/2023 Cough 07/29/2016 05/07/2018 documented as of this encounter (statuses as of 10/22/2023) Immunizations Name Administration Dates Next Due PPD [...] encounter Miscellaneous Notes * Telephone Encounter - Eli Cutler LPN - 10/22/2023 11:11 AM EDT Care Gaps Comprehensive Care Outreach Last Office/Telemedicine Visit: 02/02/2023 (in office), 03/26/2020 (telemedicine) Next Office Visit: Visit date not found Hemoglobin AIC Results: No results found for: "HEMOGLOBIN A1C" BP Readings from Last 1 Encounters: 02/02/23 120/70 Reviewed Health Maintenance below: Health Maintenance Topic Date Due Pneumococcal Vaccine: Pediatrics (0 to 5 Years) and At-Risk Patients (6 to 64 Years) (1 of 2 - PCV)Never done Hepatitis C Screening Never done Hepatitis B Vaccine (1 of 3 - 19+ 3-dose series) Never done DTaP,Tdap,and Td Vaccines (1 - Tdap) Never done Colorectal Cancer Screening Never done Depression Monitoring 11/20/2022 COVID-19 Vaccine (1 - 2022- season) Never done Zoster Vaccines (1 of 2) Never done Mammogram 11/14/2023 Recapture Ov fall Mamma nov 13 Colon cologuard not returned Care Gap Outreach Action Taken: Unable to reach vm full documented in this encounter Plan of Treatment Upcoming Encounters Date Type Department Care Team (Late st Contact Info) Description 12/01/2023 11:00 AM EDT [facility] [address] [place] [address] Klaudia Herzog RDN [address] [place] [address] 02/23/2024 11:40 AM EST Telemedicine Nutrition & Weight Management, [place] [address] [place] [address] Kathy Ovalle CRNP [address] [place] [address] Health Maintenance Due Date Last Done Comments [...] Monitoring 11/20/2022 11/20/2021 COVID-19 Vaccine (1 - season) 2022 Zoster Vaccines (1 of 2) 06/10/2023 Mammogram 11/14/2023 11/13/2022, 10/22, 08/31/2018 Influenza Vaccine (FLU shot) (#1) 2023 Diabetes Screening 11/20/2024 11/20/2021, 0 10/01/2020, 07/22/2018, Additional history exists Lipid Panel 11/20/2026 11/20/2021, 07/04/2020, 09/09/2018, Additional history exists HPV (Gardasil) Vaccine Aged Out No lo nger eligible based on patient's age to complete this topic MENINGOCOCCAL (MENACTRA/MENVEO) Aged Out No longer eligible based on patient's age to complete this topic documented as of this encounter Medical Devices Not on filedocumented as of this encounter Care Teams Public Speaking Teacher Relationship Specialty Start Date End Date Rogelio Moreira III, MD [address] [place] [address] PCP - General 04/01/07 documented as of this encounter
--- OUTSIDE RECORDS SUMMARY | 2024-03-24 20:02 | External Medical Summary | Summary of Care ---
Author Name Unknown Organization [facility] Address [address] [place] [address] Phone [phone] Care Team Providers Care Radiologic Tech Name Role Phone Harish HOLMAN MD, Rogelio Jeffers Primary Care Provider [phone] Reason for Visit * Reason Onset Date Comments Health Maintenance 10/22/2023 Encounter Details Date Type Department Care Team (Late st Contact Info) Description 10/22/2023 Telephone Family Practice [facility] [place] [address] [facility] [place] [address] Rogelio Moreira III, MD [address] [place] [address] Health Maintenance Allergies Active Allergy Reactions Criticality Noted Date Comments Metaxalone 05/25/2013 Naproxen 05/25/2013 Panixine Disperdose Rash 02/28/2008 documented as of this encounter (statuses as of 11/30/2023) Medications Medication Sig Dispensed Refills Start Date [...] as of this encounter (statuses as of 11/30/2023) Active Problems Problem Noted Date Diagnosed Date [...] as of this encounter (statuses as of 11/30/2023) Resolved Problems Problem Noted Date Diagnosed Date Resolved Date Psoriasis 02/11/2017 02/02/2023 Cough 07/29/2016 05/07/2018 documented as of this encounter (statuses as of 11/30/2023) Immunizations Name Administration Dates Next Due PPD [...] as of this encounter Miscellaneous Notes * Addendum Note - Eli Cutler LPN - 11/30/2023 11:56 AM EDTAddended by: ELI CUTLER on: 11/30/2023 11:56 AM Modules accepted: Orders * Telephone Encounter - Eli Cutler LPN - 11/30/2023 11:56 AM EDT Ov scheduled Mamm scheduled * Telephone Encounter - Eli Cutler LPN [...] Never done Depression Monitoring 11/20/2022 COVID-19 Vaccine ( - season) Never done Zoster Vaccines (1 of 2) Never done Mammogram 11/14/2023 Recapture Ov fall Mamma nov 13 Colon cologuard not returned Care Gap Outreach Action Taken: Unable to reach full documented in this encounter Plan of Treatment Upcoming Encounters Date Type Department Care Team (Late st Contact Info) Description 12/01/2023 11:00 AM EDT Telemedicine Nutrition & Weight Management, [place] [address] [place] [address] Klaudia Herzog RDN [address] [place] [address] 12/17/2023 10:30 AM EDT Imaging Radiology [address] [place] [address] 02/17/2024 9:00 AM EST Office Visit Family Practice [facility] [address] [place] [address] Rogelio Moreira III, MD [address] [place] [address] 02/23/2024 11:40 AM EST Telemedicine Nutrition & Weight Management, [place] [address] [place] [address] Kathy Ovalle CRNP [address] [place] [address] Scheduled Orders Name Type Priority Associated Diagnoses Orde r Schedule MAMMOGRAM SCREENING JONATHAN BILATERAL Medical Imaging Routine Encounter for screening mammogram for malignant neoplasm of breast Expected: 11/30/2023, Expires: 12/29/2024 Health Maintenance Due Date Last Done Comments [...] this encounter Visit Diagnoses Diagnosis Encounter for screening mammogram for malignant neoplasm of breast- Primary Other screening mammogram documented in this encounter Care Teams Radiologic Tech Relationship Specialty Start Date End Date Rogelio Moreira III, MD [address] [facility] [place], [place] [address] PCP - General 04/01/07 documented as of this encounter
--- OUTSIDE RECORDS SUMMARY | 2024-03-24 20:02 | External Medical Summary | Continuity of Care Document ---
Author Name Unknown Organization [address] [employer] [place] [id number] Address [address] [place] [id number] Care Team Providers Care Day Haul Youth Supervisor Name Role Phone Harish Rogelio Aury Primary Care Physician [phone] Encounter [facility] [id number] Date(s): 10/28/23 - 10/28/23 [facility] [address] [employer] [facility] [address] [facility] [address] [place] [address] Encounter Diagnosis DDD (degenerative disc disease), lumbar(Discharge Diagnosis) - 10/27/23 Left lumbosacral radiculopathy(Discharge Diagnosis) - 10/27/23 Discharge Disposition: Home or Self Care Attending Physician: MD Marco, Vin Ochoa Allergies, Adverse Reactions, Alerts Substance Criticality Severity Reaction Reaction Severity Status naproxen Active metaxalone Active Panixine Active Sudafed Active Medications albuterol CFC free 90 mcg/inh MDI Start: 04/11/21 10:52:00 AM EST, 1 puff, inhaled, qid, PRN: as needed for wheezing Start Date: 04/11/21 Status: Ordered atorvastatin 20 mg oral tablet Start: 05/19/14 10:33:00 AM EST, 1 tab, PO, Daily Start Date: 05/19/14 Status: Ordered azelastine 205.5 mcg/inh (0.15%) nasal spray Start: 09/29/16 8:46:00 AM EDT, 2 spray, each nostril, bid, PRN: allergy symptoms Start Date: 09/29/16 Status: Ordered Horacio Aspirin Regimen 81 mg oral delayed release tablet Start: 09/29/16 8:48:00 AM EDT, 1 tab, PO, Daily Start Date: 09/29/16 Status: Ordered buPROPion 300 mg/24 hours (XL) oral tablet, extended release Start: 10/23/23 8:56:00 AM EDT, 1 tab, PO, q24h Start Date: 10/23/23 Status: Ordered busPIRone 30 mg oral tablet Start: 05/16/13 2:48:00 PM EST Start Date: 05/16/13 Status: Ordered Fioricet oral tablet Start: 12/19/15 11:36:00 AM EDT, 1 tab, PO, q4h, PRN: as needed for headache Start Date: 12/19/15 Status: Ordered Flexeril 10 mg oral tablet Start: 11/01/20 9:56:00 AM EDT, 1 tab, PO, qhs, Disp# 30 tab, Refills: 5, PRN: as needed for spasm, Pharmacy: [facility] Start Date: 11/01/20 Stop Date: 04/30/21 Status: Ordered fluticasone 27.5 mcg/inh nasal spray Start: 09/29/16 8:46:00 AM EDT, 2 spray, each nostril, Daily, PRN: allergy symptoms Start Date: 09/29/16 Status: Ordered ibuprofen 600 mg oral tablet See Instructions, Disp# 90 tab, Refills: 2, TAKE 1 TABLET BY MOUTH EVERY 8 HOURS FOR 30 DAYS., Pharmacy: [facility] Start Date: 10/24/19 Status: Ordered Lyrica 300 mg oral capsule Start: 04/29/23 9:30:00 AM EST, 1 cap, PO, bid, Disp# 180 cap, Refills: 3, Pharmacy: [id number] Start Date: 04/29/23 Stop Date: 04/23/24 Status: Ordered meclizine 25 mg oral tablet Start: 12/19/15 11:36:00 AM EDT, 1 tab, PO, tid, PRN: as needed for dizziness Start Date: 12/19/15 Status: Ordered Midrin Start: 05/16/13 2:49:00 PM EST Start Date: 05/16/13 Status: Ordered omeprazole 40 mg oral delayed release capsule Start: 05/16/13 2:48:00 PM EST Start Date: 05/16/13 Status: Ordered sertraline 100 mg oral tablet Start: 05/16/13 2:48:00 PM EST, 2.5 tab, PO, Daily Start Date: 05/16/13 Status: Ordered topiramate 100 mg oral tablet Start: 08/10/14 10:21:00 AM EDT, 2 tab, PO, bid Start Date: 08/10/14 Status: Ordered topiramate 50 mg oral tablet Start: 04/18/16 11:29:00 AM EST, 1 tab, PO, bid Start Date: 04/18/16 Status: Ordered Triamcinolone Acetonide in Absorbase 0.05% topical ointment Start: 05/16/13 2:49:00 PM EST, 1 appl, topical, bid Start Date: 05/16/13 Status: Ordered verapamil Start: 04/20/17 1:45:00 PM EST Start Date: 04/20/17 Status: Ordered Mental Status 10/28/23 Barriers to Learning one year None evide nt Mandatory Health Literacy Documentation Yes Health Literacy Communication Barriers N ever Primary Language Chinese Problem List Condition Confirmation Course Effective Dates Status H ealth Status Informant Backache Confirmed Active Concussion Confirmed Active DDD (degenerative disc disease), lumbar Confirmed Active Fibromyalgia Confirmed Active Left lumbosacral radiculopathy Confirmed Active Neck pain Confirmed Active Encounter for monitoring chronic NSAID therapy Confirmed Active Postconcussion syndrome Confirmed Active Elevated rheumatoid factor Confirmed Active Neural foraminal stenosis of cervical spine Confirmed Active Diagnosis Diagnosis Type Effective Dates Health Status Clinical Service Informant DDD (degenerative disc disease), lumbar Discharge Diagnosis 10/27/23 Left lumbosacral radiculopathy Discharge Diagnosis 10/27/23 Procedures Procedure Date Related Diagnosis Body Site Status Abdominal hysterectomy Co mpleted Vital Signs Most recent to oldest [Reference Range]: 1 Heart Rate 91 bpm (10/28/23 11:07 AM) Blood Pressure 96/60mmHg (10/28/23 11:07 AM) Cuff Pulse Pressure 36 mmHg (10/28/23 11:07 AM) Social History Social History Type Response Smoking Status Never smoked cigaret devyn Sex Female Sex Representation Female (finding) Ortho Outpt Note * MD Marco, Vin Ochoa: PERFORM Event Display: Ortho Outpt Note Authored Date: [id number] Name:ALYSA ABEBE Patient Number:[id number] :1975 Date of Service:10/28/2023 Preoperative diagnosis:Grade 1 L4-5 spondylolisthesis with right lower extremity radiculopathy Postoperative diagnosis: Same Procedure: Right paramedian L5-S1 interlaminar epidural steroid injection under fluoroscopic guidance Indications: Patient is a 48-year-old femalewhohad an epidural injection 13 months ago the effectiveness has worn off she presents today for another injection provide her with relief Physical examination:She has intact sensation no focal weakness but positive seated straight leg raises bilaterally Consent: Verbal consent was obtained from the patient. Prior to the procedure a timeout was done for safety to confirm patient's full name and date of injection type location and approach. Procedure: Patient was maintained in a prone position backside was cleansed with orange ChloraPrep, fluoroscope was used to identify the L5-S1 interlaminar space. The overlying skin on the right side was anesthetized with 4 mL of lidocaine 1% with a 25-gauge 1-1/2 inch needle. 22-gauge 4-1/4 inch Tuohy needle was then directed down towards the interlaminar space was advanced under lateral fluoroscopic guidance and loss of resistance was noted at a depth of 9cm. Omnipaque 300 contrast half milliliter was injected and which demonstrated an epidural uptake pattern they then underwent injection after negative aspiration of 40 mg Depo-Medrol and 4 mL of preservative-free sodium chloride.Injection was tolerated. Images from the procedure were saved and downloaded to PACS. Disposition: Patient will be discharged home once discharge criteria have been met Electronic Signature on File CC: Rogelio Moreira MD [address] [place] [address] * Electronically Reviewed/Signed by: Vin Lara MD Author Signature Dt/Tm:10/28/2023 11:40 AM Composite Technician of Orthopaedics & Rehabilitation and Physical Medicine & Rehabilitation [facility] .Outpt Proc * KAVITA Clark, Ava Kumari: PERFORM Event Display: .Outpt Proc Authored Date: [id number] OUTPATIENT PROCEDURE Name: ALYSA ABEBE Patient Number: [id number] : 1975 Date of Service: 10/28/2023 OUTPATIENT PROCEDURE NOTE Is patient no Procedure performedRightLumbar Epidural Steroid Injection [id number] byDr. Vin Lara MD Resuscitation equipment checkedyes Anticoagulants stoppedyes - Aspirin - last dose on 10/22 Patient has a driveryes xray guidance usedyesConscious sedationnoTime out completedyes consent signedyes Allergies checkedyesPanixine; Sudafed; metaxalone; naproxen Diabeticyes - pre-diabetic PositionPronePre procedure pain level _9__10 Skin PrepchlorhexadineSterile drapes usedyes Skin Local Anesthetic: Needle __25___ga ____1.5__in Lidocaile __1___%__4___ml Other HR: 91 SpO2: 93% BP: 96/60 Block Needle _22_GA_4.25_InchesType - Tuoghy needle Procedure medication used Cortical Steroids __40_mg MethylprednisoloneLocal Anesthetic % ml _- NSS 4ml TimeDrug/Event/RemarkBPHRSPO2 Comments 1132 - 0.5ml Omnipaque 1134 - Procedure complete 108/70 75 98% Status:Pain on discharge __0__/10ComplicationsNo Neurologically stableYes DispositionDischarged Home with aftercare instructions given Follow up __3___months Electronic Signature on File Electronically Reviewed/Signed by: Ava Clark Author Signature Dt/Tm:10/28/2023 11:38 AM Electronically Reviewed/Signed by: Vin Lara MD Cosigner Signature Dt/Tm: 10/28/2023 11:41 AM Composite Technician of Orthopaedics & Rehabilitation and Physical Medicine & Rehabilitation [facility] Patient Care team information Care Team Personnel Name: MD Moreira John E Position: Referring DIRECT Member Role: Primary Care Provider Address: [address] [place] [address] [place] Care Team Related Persons Name: LUCAS JULIAN Name: LONG ABEBE
--- OUTSIDE RECORDS SUMMARY | 2024-03-24 20:02 | External Medical Summary | Summary of Care ---
Author Name Unknown Organization [facility] Address [address] [place] [address] Phone [phone] Care Team Providers Care Alligator Shear Operator Name Role Phone Harish HOLMAN MD, Rogelio Jeffers Primary Care Provider [phone] Encounter Details Date Type Department Care Team (Late st Contact Info) Description 12/10/2023 Population Health External Data Unspecified Department Allergies Active Allergy Reactions Criticality Noted Date Comments Metaxalone 05/25/2013 Naproxen 05/25/2013 Panixine Disperdose Rash 02/28/2008 documented as of this encounter (statuses as of 12/14/2023) Medications Medication Sig Dispensed Refills Start Date [...] as of this encounter (statuses as of 12/14/2023) Active Problems Problem Noted Date Diagnosed Date [...] as of this encounter (statuses as of 12/14/2023) Resolved Problems Problem Noted Date Diagnosed Date Resolved Date Psoriasis 02/11/2017 02/02/2023 Cough 07/29/2016 05/07/2018 documented as of this encounter (statuses as of 12/14/2023) Immunizations Name Administration Dates Next Due PPD [...] Care Team (Late st Contact Info) Description 12/17/2023 10:30 AM EDT Imaging Radiology [facility] [address] [facility] [place] [address] 12/22/2023 9:00 AM EDT Telemedicine Nutrition & Weight Management, [place] [address] [place] [address] Kathy Ovalle CRNP [address] [place] [address] 02/17/2024 9:00 AM EST Office Visit Family Practice [facility] [address] [facility] [place] [address] Rogelio Moreira III, MD 200 [place] [address] Health Maintenance Due Date Last Done Comments [...] filedocumented as of this encounter Care Teams Alligator Shear Operator Relationship Specialty Start Date End Date Rogelio Moreira III, MD [address] [facility] [place] [address] PCP - General 04/01/07 documented as of this encounter
--- OUTSIDE RECORDS SUMMARY | 2024-03-24 20:02 | External Medical Summary | Summary of Care ---
Author Name Unknown Organization [facility] Address [address] [place] [address] Phone [phone] Care Team Providers Care Natural Gas Treating Unit Operator Name Role Phone Harish HOLMAN MD, Rogelio Jeffers Primary Care Provider [phone] Reason for Visit * Reason Comments Weight Management Encounter Details Date Type Department Care Team (Late st Contact Info) Description 12/01/2023 11:00 AM EDT Telemedicine Nutrition & Weight Management, [place] [address] [place] [address] Klaudia Herzog, RDN [address] [place], [place] [id number] Class 1 obesity due to excess calories with serious comorbidity and body mass index (BMI) of 34.0 to 34.9 in adult*; THOMAS (obstructive sleep apnea); Hepatic steatosis Allergies Active Allergy Reactions Criticality Noted Date Comments Metaxalone 05/25/2013 Naproxen 05/25/2013 Panixine Disperdose Rash 02/28/2008 documented as of this encounter (statuses as of 12/01/2023) Medications Medication Sig Dispensed Refills Start Date [...] as of this encounter (statuses as of 12/01/2023) Active Problems Problem Noted Date Diagnosed Date [...] as of this encounter (statuses as of 12/01/2023) Resolved Problems Problem Noted Date Diagnosed Date Resolved Date Psoriasis 02/11/2017 02/02/2023 Cough 07/29/2016 05/07/2018 documented as of this encounter (statuses as of 12/01/2023) Immunizations Name Administration Dates Next Due PPD [...] - Inhaled Oxygen Concentration - - Weight 92.1 kg (203 lb) 12/01/2023 11:17 AM EDT pt reported Height 162.6 cm (5' 4.02") 12/01/2023 11:17 AM E DT Body Mass Index 34.83 12/01/2023 11:17 AM EDT documented in this encounter Patient Instructions * Patient Instructions* Klaudia Herzog RDN - 12/01/2023 11:24 AM EDT GOALS: - Focus on low fat and low sugar foods/drinks. - Add in 1-2 pieces of fruit throughout the day. -Instead of doing both yogurt and cottage cheese, can swap in fruit for one of those. -If choosing canned or fruit cups - no heavy syrup. Best to choose fresh or frozen. - Always include at least 1 cup of veggies with dinner. - Be wary of how often you're having sweet treat snacks. -Be more mindful with these snacks. -Savor them - make these take longer than you would think (example 1 Oreo can take 10-15 minutes). documented in this encounter Progress Notes * Klaudia Herzog, RDN - 12/01/2023 11:03 AM EDT NUTRITION & WEIGHT MANAGEMENT CONSULT NOTE [facility] Patient was identified at visit by name and date. Patient location: HOME. I was in a hospital or clinic location. After connecting through [employer],patient was verified with two unique identifiers. Patient (or authorized legal technical sales representative) was then informed that this was a Telemedicine visit and being conducted confidentially over secure lines. Methods to assure confidentiality were taken. Patient acknowledged consent and understanding of pr ivacy and security of the Telemedicine visit. The patient agreed to participate. NUTRITION ASSESSMENT SUBJECTIVE: 48 year old female with class 1 obesity (Body mass index is 34.83 kg/m.) who has beenfollowing in clinic since 03/2021 and returned 09/2023 and weighed 215 lb at that time. Patient is disabled. Lives [facility]. They so the cooking and she orders groceries online for delivery. Reports she's been trying to increase protein since initial appointment. States she doesn't like sugar-free foods/beverages. Seems willing to try to reduce sugar/fat. Discussed goals as listed below.Discussed that her personal goal weight may not be achievable with conservative measures. Describes typical diet history/24 hr recall Breakfast: protein bar (Atkins - PB chocolate), SlimFast, coffee w/ regular creamer Snacks: nothing Lunch: yogurt (Chobani - not low fat or Yoplait) or 2% cottage cheese w/ fruit jam (pre-packed), SlimFast, wheat thins (no measured - 2-3 handfuls) or Thursday had meatloaf, baked potato, corn Snacks: nothing Dinner: homemade beef stew (cadence roast, carrots, celery, beets, potatoes) or pizza Snacks: homemade cinnamon rolls ("too many") Drinks: water (64-96 oz), ~24-32 oz coffee w/ regular flavored creamer Alcohol: None Restaurant meals: at least once a month - [place] PHYSICAL ACTIVITY: Limited due to disability (pain) SUPPLEMENTS: Alive KEERTHI flood 2 daily PERTINENT MEDICATIONS: Naltrexone (25 mg daily), Wellbutrin (300 mg) Progress on goals from the previous visit: Fair progress - still needs to work on food choices ANTHROPOMETRICS: Height: 1.626 m Initial weight: 95.3 kg (210 lb) (telemed - 04/18/21) Re-established: 215 lb (reported 10/20/23) Highest weight: 220 lb Lowest weight: 115 lb since age 18 Weight goal: 125 lb personal goal Current weight: 203 lb reported AIBW: 72.4 kg (159 lb) Weight changes: decreased by 12 pounds in the past 2 months Wt Readings from Last 6 Encounters: 12/01/23 92.1 kg (203 lb) 10/20/23 97.5 kg (215 lb) 04/18/21 95.3 kg (210 lb) 02/11/17 88.9 kg (196 lb) 07/28/16 86.2 kg (190 lb) 06/25/16 63.5 kg (140 lb) Patient is interested in the following treatment options for obesity: medical management and medication use. LABS: Pertinent lab studies have been reviewed. Latest Reference Range & Units 10/23/23 09:53 Hemoglobin A1C 4.0 - 5.6 % 6.2 (H) NUTRITION PRESCRIPTION: [place] (1526) x1.2 activity factor = 1831 Kcals --> [id number] Kcals for weight loss Protein: 1.0 gm protein/kg (AIBW 72.4 kg) = 72 gm protein/day Fluid: 30 mL/kg (AIBW 72.4 kg) = ~2200 mL/day KNOWLEDGE ASSESSMENT: adequate knowledge BARRIERS TO LEARNING: None SPECIAL EDUCATION NEEDS: None NUTRITION DIAGNOSIS Overweight/obesity related to imbalance of calories consumed vs expended as evidenced by reported diet and/or activity recall; BMI 34.83 kg/m NUTRITION INTERVENTION INSTRUCTED PT ON THESE NUTRITION HANDOUTS: none PATIENT GOALS: - Focus on low fat and low sugar foods/drinks. - Add in 1-2 pieces of fruit throughout the day. -Instead of doing both yogurt and cottage cheese, can swap in fruit for one of those. -If choosing canned or fruit cups - no heavy syrup. Best to choose fresh or frozen. - Always include at least 1 cup of veggies with dinner. - Be wary of how often you're having sweet treat snacks. -Be more mindful with these snacks. -Savor them - make these take longer than you would think (example 1 Oreo can take 10-15 minutes). EXPECTED OUTCOMES: Demonstrated interest in learning. Expect compliance with diet recommendations. PLAN: Return with RD in 2-3 months 30 min (23-37 min) visit 11:03 AM --> 11:29 AM Klaudia Herzog MS, JANETN, LDN Clinical Dietitian Phone | [phone] [employer] documented in this encounter Plan of Treatment Upcoming Encounters Date Type Department Care Team (Late st Contact Info) Description 12/17/2023 10:30 AM EDT Imaging Radiology [facility] [address] [place] [address] 02/17/2024 9:00 AM EST Office Visit Family Practice [facility] [address] [facility] [place] [address] Rogelio Moreira III, MD [address] [place] [address] 02/23/2024 11:40 AM EST [facility] [address] [place] [address] Kathy Ovalle CRNP [address] [place] [address] Health Maintenance Due Date Last Done Comments [...] as of this encounter Visit Diagnoses Diagnosis Class 1 obesity due to excess calories with serious comorbidity and body mass index (BMI) of 34.0 to 34.9 in adult- Primary THOMAS (obstructive sleep apnea) Obstructive sleep apnea (adult) (pediatric) Hepatic steatosis Other chronic nonalcoholic liver disease documented in this encounter Care Teams Natural Gas Treating Unit Operator Relationship Specialty Start Date End Date Rogelio Moreira III, MD [address] [facility] [place] [address] PCP - General 04/01/07 documented as of this encounter
--- OUTSIDE RECORDS SUMMARY | 2024-03-24 20:02 | External Medical Summary | Summary of Care ---
Author Name Unknown Organization [facility] Address [address] [place] [address] Phone [phone] Care Team Providers Care Annual Greenhouse Manager Name Role Phone Harish HOLMAN MD, Rogelio Jeffers Primary Care Provider [phone] Encounter Details Date Type Department Care Team (Late st Contact Info) Description 10/13/2023 Population Health External Data Unspecified Department Allergies Active Allergy Reactions Criticality Noted Date Comments Metaxalone 05/25/2013 Naproxen 05/25/2013 Panixine Disperdose Rash 02/28/2008 documented as of this encounter (statuses as of 10/16/2023) Medications Medication Sig Dispensed Refills Start Date [...] Tablet by mouth in the morning. Active Ajovy 225 MG/1.5ML Subcutaneous Solution Auto-injector 11/28/2021 Active CPAP every night at bedtime . [...] OR WHEEZING. 54 g 2 02/02/2023 Active Budesonide-Formotero l Fumarate 80-4.5 MCG/ACT Inhalation Aerosol (Symbicort) Inhale 2 Puffs by mouth in the morning and 2 Puffs before bedtime. Rinse after. 10.2 g 8 02/02/2023 Active Fluticasone-Salmeter ol 100-50 MCG/ACT Inhalation Aerosol Powder Breath Activated (Wixela Inhub) Inhale 1 Puff by mouth in the morning and 1 Puff before bedtime. 180 Each 1 02/17/2023 Active documented as of this encounter (statuses as of 10/16/2023) Active Problems Problem Noted Date Diagnosed Date [...] as of this encounter (statuses as of 10/16/2023) Resolved Problems Problem Noted Date Diagnosed Date Resolved Date Psoriasis 02/11/2017 02/02/2023 Cough 07/29/2016 05/07/2018 documented as of this encounter (statuses as of 10/16/2023) Immunizations Name Administration Dates Next Due PPD [...] Care Team (Late st Contact Info) Description 10/20/2023 10:40 AM EDT Telemedicine Nutrition & Weight Management, [place] [address] [place] [address] Kathy Ovalle CRNP [address] [place] [address] 02/09/2024 10:00 AM EST Telemedicine Nutrition & Weight Management, [place] [address] [place], [place] [phone] Chacha Casillas MD [address] [place], [place] [phone] Health Maintenance Due Date Last Done Comments [...] filedocumented as of this encounter Care Teams Annual Greenhouse Manager Relationship Specialty Start Date End Date Rogelio Moreira III, MD [address] [place] [address] PCP - General 04/01/07 documented as of this encounter
--- OUTSIDE RECORDS SUMMARY | 2024-03-24 20:02 | External Medical Summary | Continuity of Care Document ---
Author Name Unknown Organization [id number] Address [address] [place] [id number] Care Team Providers Care Shell Molder Name Role Phone Harish Rogelio Aury Primary Care Physician [phone] Encounter [facility] [id number] Date(s): 10/23/23 - 10/23/23 [facility] [address] [facility] [[email or web address] [address] [facility] [address] [place] [id number] Encounter Diagnosis Right lumbar radiculopathy(Discharge Diagnosis) - 10/23/23 DDD (degenerative disc disease), lumbar(Discharge Diagnosis) - 10/23/23 Discharge Disposition: Home or Self Care Attending Physician: MD Lara Gregory G Allergies, Adverse Reactions, Alerts Substance Criticality Severity Reaction Reaction Severity Status naproxen Active metaxalone Active Panixine Active Sudafed Active Assessment and Plan Extracted from: Title:Follow Up Visit Author:MD Lara Gregory G Date:10/23/23 1.Right lumbar radiculopathy Patient is having an exacerbation of her right lower extremity radiculopathyshe wishes to proceed with an injection she will be scheduled for a right paramedian L5-S1 interlaminar injection to address her L5 radiculopathy 2.DDD (degenerative disc disease), lumbar Follow-up after the injection Medications albuterol CFC free 90 mcg/inh MDI [...] 5, PRN: as needed for spasm, Pharmacy: [facility] Start Date: 11/01/20 Stop Date: 04/30/21 Status: Ordered fluticasone 27.5 mcg/inh nasal spray Start: 09/29/16 8:46:00 AM EDT, 2 spray, each nostril, Daily, PRN: allergy symptoms Start Date: 09/29/16 Status: Ordered ibuprofen 600 mg oral tablet See Instructions, Disp# 90 tab, Refills: 2, TAKE 1 TABLET BY MOUTH EVERY 8 HOURS FOR 30 DAYS., Pharmacy: [facility] Start Date: 10/24/19 Status: Ordered Lyrica 300 mg oral capsule Start: 04/29/23 9:30:00 AM EST, 1 cap, PO, bid, Disp# 180 cap, Refills: 3, Pharmacy: [id number] Start Date: 04/29/23 Stop Date: 04/23/24 Status: [...] Start Date: 04/20/17 Status: Ordered Mental Status 10/23/23 Barriers to Learning one year None evide nt Mandatory Health Literacy Documentation Yes Health Literacy Communication Barriers N ever Primary Language Hebrew Problem List Condition Confirmation Course Effective Dates [...] Effective Dates Health Status Clinical Service Informant Right lumbar radiculopathy Discharge Diagnosis 10/23/23 DDD (degenerative disc disease), lumbar Discharge Diagnosis 10/23/23 Procedures Procedure Date Related Diagnosis Body Site Status Abdominal hysterectomy Co mpleted Social History Social History Type Response Smoking Status Current every day li ght smoker Sex Female Sex Representation Female (finding) Ortho Outpt Note * MD Marco, Vin Ochoa: PERFORM Event Display: Ortho Outpt Note Authored Date: [id number] Chief Complaint followup for Fibromyalgia and DDD. Wants to discuss another injection. Last was in 2022. Pain Primary Care Provider MD Harish, Rogelio Jeffers Subjective Patient is a 50-year-old female who returns today for follow-up. She was last [id number] monthsago reports nice improvement following the injectionhowever the pain is returned and she feels that she is overdue for another injection. She quantifies pain today as a 9 out of 10 currently 10 out of 10 at worst 5 out of 10 at the leasthe is looking localizing her pain toacross the lower lumbar spine and following a little bit down both legs but more on the right than the left following an L5 dermatomal distribution. She notes that she will get pain on thedorsum of her foot into the great toe space Objective Physical Exam Pleasant female moving about slowly she has tenderness to palpation of her lumbar spine she has limitations with forward flexion no problems with extensionshe is positive seated straight leg raisesbilaterally she has intact sensation with some pain in admission with strength testing Assessment/Plan 1.Right lumbar radiculopathy Patient is having an exacerbation of her right lower extremity radiculopathyshe wishes to proceedwith an injection she will be scheduled for a right paramedian L5-S1 interlaminar injection to address her L5 radiculopathy 2.DDD (degenerative disc disease), lumbar Follow-up after the injection Electronic Signature on File CC: Rogelio Moreira MD [address] [place] [id number] * Electronically Reviewed/Signed by: Vin Lara MD Author Signature Dt/Tm:10/23/2023 09:42 AM Rubber Tubing Backer of [facility] and Physical Medicine & [facility] Patient Care team information Care Team Personnel Name: MD Moreira John E Position: Referring DIRECT Member Role: Primary Care Provider Address: [address] [place] [address] [place] Care Team Related Persons Name: LUCAS JULIAN Name: LONG ABEBE
--- OUTSIDE RECORDS SUMMARY | 2024-03-24 20:02 | External Medical Summary | Summary of Care ---
Author Name Unknown Organization [facility] Address [address] [place] [address] Phone [phone] Care Team Providers Care Road Packer Operator Name Role Phone Harish HOLMAN MD, Rogelio Jeffers Primary Care Provider [phone] Reason for Visit * Reason Comments Outpatient Testing Encounter Details Date Type Department Care Team (Late st Contact Info) Description 10/23/2023 9:50 AM EDT Laboratory [facility] [place] [address] [place] [phone] [place] [address] [place] [address] Abnormal weight gain; Class 2 severe obesity due to excess calories with serious comorbidity and body mass index (BMI) of 39.0 to 39.9 in adult (HCC); THOMAS (obstructive sleep apnea); Hepatic steatosis; Mixed hyperlipidemia Allergies Active Allergy Reactions Criticality Noted Date Comments Metaxalone 05/25/2013 Naproxen 05/25/2013 Panixine Disperdose Rash 02/28/2008 documented as of this encounter (statuses as of 10/23/2023) Medications Medication Sig Dispensed Refills Start Date [...] as of this encounter (statuses as of 10/23/2023) Active Problems Problem Noted Date Diagnosed Date [...] as of this encounter (statuses as of 10/23/2023) Resolved Problems Problem Noted Date Diagnosed Date Resolved Date Psoriasis 02/11/2017 02/02/2023 Cough 07/29/2016 05/07/2018 documented as of this encounter (statuses as of 10/23/2023) Immunizations Name Administration Dates Next Due PPD [...] AM EDT Telemedicine Nutrition & Weight Management, [place] [address] [place] [address] Klaudia Herzog RDN [address] [place] [address] 02/23/2024 11:40 AM EST Telemedicine Nutrition & Weight Management, [place] [address] [place], [place] [phone] Kathy Ovalle CRNP [address] [place], [place] [phone] Pending Results Name Type Priority Associated Diagnoses Date /Time HEMOGLOBIN A1C Lab Routine Abnormal weight gain Class 2 severe obesity due to excess calories with serious comorbidity and body mass index (BMI) of 39.0 to 39.9 in adult (HCC) THOMAS (obstructive sleep apnea) Hepatic steatosis Mixed hyperlipidemia 10/23/2023 9:53 AM EDT Health Maintenance Due Date Last Done Comments [...] Hepatic steatosis Other chronic nonalcoholic liver disease Mixed hyperlipidemia documented in this encounter Care Teams Road Packer Operator Relationship Specialty Start Date End Date Rogelio Moreira III, MD [address] [facility] [place], [place] [address] PCP - General 04/01/07 documented as of this encounter
[2024-03-24] MEDS ORDERED: POLYETHYLENE (MIRALAX) 17 GM PACK PO PRN (21:15)
[2024-03-24] MEDS ORDERED: NICOTINE 14 MG/24 HR PATCH TD PRN (21:15)
[2024-03-24] MEDS: PREGABALIN 150 MG CAP PO SCH (22:06)
[2024-03-24] MEDS: TOPIRAMATE 100 MG TAB PO SCH (22:07)
[2024-03-24] MEDS: ATORVASTATIN 20 MG TAB PO SCH (22:07)
[2024-03-24] MEDS: busPIRone 15 MG TAB PO SCH (22:07)
[2024-03-24] MEDS: VERAPAMIL HCL 120 MG TABCR PO SCH (22:08)
[2024-03-24] MEDS: ENOXAPARIN INJ 40 MG/0.4 ML SYR SQ SCH (23:06)
[2024-03-24] MEDS: Patient's HEIGHT &/or WEIGHT Needed SCH (23:32)
--- OUTSIDE RECORDS SUMMARY | 2024-03-25 01:29 | External Medical Summary | Summary of Care ---
Author Name Unknown Organization [facility] Address [address] [place] [address] Phone [phone] Care Team Providers Care Analyst Geochemical Prospecting Name Role Phone Harish HOLMAN MD, Rogelio Jeffers Primary Care Provider [phone] Reason for Visit * Reason Comments Short of Breath Encounter Details Date Type Department Care Team (Late st Contact Info) Description 03/24/2024 11:40 AM EST Office Visit General Internal Medicine [facility] [place] [place] [address] [facility] [place] [address] Petra Kendall MD [address] [place] [address] SOB (shortness of breath)*; URTI (acute upper respiratory infection); Class 2 severe obesity due to excess calories with serious comorbidity and body mass index (BMI) of 39.0 to 39.9 in adult (HCC); Migraine variant; Dysthymic disorder; Generalized anxiety disorder; Mixed hyperlipidemia; Mild persistent asthma without complication Allergies Active Allergy Reactions Criticality Noted Date Comments Metaxalone 05/25/2013 Naproxen 05/25/2013 Panixine Disperdose Rash 02/28/2008 documented as of this encounter (statuses as of 03/24/2024) Medications BUSPIRONE HCL 30 MG PO TABS [...] as of this encounter (statuses as of 03/24/2024) Active Problems Problem Noted Date Diagnosed Date Class 2 severe obesity due t o excess calories with serious comorbidity and body mass index (BMI) of 39.0 to 39.9 in adult 03/24/2024 Dysthymic disorder 03/24/2024 Generalized anxiety disorder 03/24/2024 Mixed hyperlipidemia 03/24/2024 Mild persistent asthma without complication 04/2024 Prediabetes 11/02/2023 Overview: Per Prediabetes protocol THOMAS [...] as of this encounter (statuses as of 03/24/2024) Resolved Problems Problem Noted Date Diagnosed Date Resolved Date Psoriasis 02/11/2017 02/02/2023 Cough 07/29/2016 05/07/2018 ADVANCE DIRECTIVE INFORMATION 12/18/2004 01/25/2024 Overview (12/18/2004): No, Advance Directive brochure offered , patient declined. documented as of this encounter (statuses as of 03/24/2024) Immunizations Name Administration Dates Next Due PPD [...] Sign Reading Time Taken Comments Blood Pressure 114/57 03/24/2024 11:58 AM EST Pulse 97 03/24/2024 11:58 AM EST Temperature 40.1 C (104.1 F) 03/24/2024 11:58 AM EST Respiratory Rate 16 03/24/2024 11:58 AM EST Oxygen Saturation 85% 03/24/2024 11:58 AM EST Inhaled Oxygen Concentration - - Weight 92.1 kg (203 lb) 03/24/2024 11:58 AM EST Height - - Body Mass Index 34.83 12/01/2023 11:17 AM EDT documented in this encounter Progress Notes * Petra Kendall MD - 03/24/2024 12:43 PM EST Images from the original note were not included. History of Present Illness Jannie Allen is a 48 year old female that presents for Short of Breath Has worsening sob, very high fever or 104, feeling sleepy all the time. Uses cpap machine at home. Never used oxygen at home. Accompained by her mother and they are concerned about her s/s. No cough, chestpain. No wheezing. Physical Exam Vitals: 03/24/24 1158 Temp: (!) 104.1 F (40.1 C) Pulse: 97 Resp: 16 SpO2: 85% BP: 114/57 BP Readings from Last 3 Encounters: 03/24/24 114/57 02/02/23 120/70 01/01/22 124/73 Wt Readings from Last 3 Encounters: 03/24/24 203 lb (92.1 kg) 12/01/23 203 lb (92.1 kg) 10/20/23 215 lb (97.5 kg) BMI Readings from Last 3 Encounters: 03/24/24 34.83 kg/m 12/01/23 34.83 kg/m 10/20/23 36.90 kg/m Ht Readings from Last 3 Encounters: 12/01/23 5' 4.02" (1.626 m) 10/20/23 5' 4" (1.626 m) 01/01/22 5' 4" (1.626 m) HEENT: PERRLA, EOMI, anicteric sclera, neck supple CVS: RRR, no murmurs, rubs or gallops, s1 s 2normal. RESP: BL decreased Bs to auscultation, no wheezing or crackles EXT: no edema, cyanosis, peripheral pulses palpable bilaterally I have reviewed the following results: None Assessment and Plan SOB (shortness of breath) (Primary) Needs ER eval to rule out underlying pneumonia, PE. Family is agreeable to take her to Emergency Room and patient is agreeable too. Advised the nurse to call ambulance and provide patient with oxygen 2 liter/minute. URTI (acute upper respiratory infection) Patient location: HOME. I was in a hospital or clinic location. After connecting through televideo,patient was verified with two unique identifiers. Patient (or authorized legal sales service representative) was then informed that this was a Telemedicine visit and being conducted confidentially over secure lines. Methods to assure confidentiality were taken. Patient acknowledged consent and understanding of pr ivacy and security of the Telemedicine visit. The patient agreed to participate. * Nikki Montoya RN - 03/24/2024 11:58 AM EST Sick since Thursday. documented in this encounter Plan of Treatment [...] as of this encounter Visit Diagnoses Diagnosis SOB (shortness of breath)- Primary Shortness of breath URTI (acute upper respiratory infection) Acute upper respiratory infections of unspecified site Class 2 severe obesity due to excess calories with serious comorbidity and body mass index (BMI) of 39.0 to 39.9 in adult (HCC) Migraine variant Variants of migraine, not elsewhere classified, without mention of intractable migraine without mention of status migrainosus Dysthymic disorder Generalized anxiety disorder Mixed hyperlipidemia Mild persistent asthma without complication Unspecified asthma documented in this encounter Care Teams Analyst Geochemical Prospecting Relationship Specialty Start Date End Date Rogelio Moreira III, MD [address] [place] [address], [place] [address] PCP - General 04/01/07 documented as of this encounter
--- OUTSIDE RECORDS SUMMARY | 2024-03-25 01:30 | External Medical Summary | Summary of Care ---
Author Name Unknown Organization [facility] Address [address] [place] [address] Phone [phone] Care Team Providers Care Ambulance Attendant Name Role Phone Harish HOLMAN MD, Rogelio Jeffers Primary Care Provider [phone] Reason for Visit * Reason Comments Short of Breath Encounter Details Date Type Department Care Team (Late st Contact Info) Description 03/24/2024 11:40 AM EST Office Visit General Internal Medicine [facility] [place] [address] [facility] [place] [address] Petra Kendall MD 200 [place] [address] SOB (shortness of breath)*; URTI (acute upper [...] two unique identifiers. Patient (or authorized legal insurance service representative) was then informed that this [...] asthma documented in this encounter Care Teams Ambulance Attendant Relationship Specialty Start Date End Date Rogelio Moreira III, MD [address] [place] [address], [place] [address] PCP - General 04/01/07 documented as of this encounter
--- OUTSIDE RECORDS SUMMARY | 2024-03-25 01:30 | External Medical Summary | Summary of Care ---
Author Name Unknown Organization [facility] Address [address] [place] [address] Phone [phone] Care Team Providers Care Elevator Runner Name Role Phone Harish HOLMAN MD, Rogelio Jeffers Primary Care Provider [phone] Reason for Visit * Reason Comments Short of Breath Encounter Details Date Type Department Care Team (Late st Contact Info) Description 03/24/2024 11:40 AM EST Office Visit General Internal Medicine [facility] Maile [place] 200 [facility] [place] [address] Petra Kendall MD 200 [place] [address] SOB (shortness of breath)*; URTI (acute upper [...] unique identifiers. 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
--- OUTSIDE RECORDS SUMMARY | 2024-03-25 01:30 | External Medical Summary | Summary of Care ---
Author Name Unknown Organization [facility] Address [address] [place] [address] Phone [phone] Care Team Providers Care Insurance Policy Clerk Name Role Phone Harish HOLMAN MD, Rogelio Jeffers Primary Care Provider [phone] Reason for Visit * Reason Comments Short of Breath Encounter Details Date Type Department Care Team (Late st Contact Info) Description 03/24/2024 11:40 AM EST Office Visit General Internal Medicine [facility] [place] 200 [facility] [place] [address] Petra Kendall MD 200 [place] [address] SOB (shortness of breath)*; URTI (acute upper [...] unique identifiers. 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
--- OUTSIDE RECORDS SUMMARY | 2024-03-25 01:30 | External Medical Summary | Summary of Care ---
Author Name Unknown Organization [facility] Address [address] [place] [address] Phone [phone] Care Team Providers Care Length Control Tester Name Role Phone Harish HOLMAN MD, Rogelio Jeffers Primary Care Provider [phone] Reason for Visit * Reason Comments Short of Breath Encounter Details Date Type Department Care Team (Late st Contact Info) Description 03/24/2024 11:40 AM EST Office Visit General Internal Medicine [facility] Maile [place] 200 [facility] [place] [address] Petra Kendall MD 200 [place] [address] SOB (shortness of breath)*; URTI (acute upper [...] two unique identifiers. 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
--- OUTSIDE RECORDS SUMMARY | 2024-03-25 01:30 | External Medical Summary | Summary of Care ---
Author Name Unknown Organization [facility] Address [address] [place] [address] Phone [phone] Care Team Providers Care Trench Digging Machine Operator Name Role Phone Harish HOLMAN MD, Rogelio Jeffers Primary Care Provider [phone] Reason for Visit * Reason Comments Short of Breath Encounter Details Date Type Department Care Team (Late st Contact Info) Description 03/24/2024 11:40 AM EST Office Visit General Internal Medicine [facility] [place] [address] [facility] [place] [address] Petra Kendall MD 200 [place] [address] SOB (shortness of breath)*; URTI (acute upper [...] not included. History of Present Illness Jannie Allne is a 48 year old female that [...] 2 liter/minute. URTI (acute upper respiratory infection) Wrap-Up Time: I spent a total of 30-39 minutes (exact time 30 mins) on the date of service in preparation, delivery, and documentation of the care provided to Jannie Allen excluding any time spent in the performance of separately billed services. * Nikki Montoya RN - 03/24/2024 11:58 [...] asthma documented in this encounter Care Teams Trench Digging Machine Operator Relationship Specialty Start Date End Date Rogelio Moreira III, MD 200 [place] [address] PCP - General 04/01/07 documented as of this encounter
--- OUTSIDE RECORDS SUMMARY | 2024-03-25 01:30 | External Medical Summary | Summary of Care ---
Author Name Unknown Organization [facility] Address [address] [place] [address] Phone [phone] Care Team Providers Care Farmworker Vegetable Name Role Phone Harish HOLMAN MD, Rogelio Jeffers Primary Care Provider [phone] Reason for Visit * Reason Comments Short of Breath Encounter Details Date Type Department Care Team (Late st Contact Info) Description 03/24/2024 11:40 AM EST Office Visit General Internal Medicine [facility] [place] 200 [facility] [place] [address] Petra Kendall MD 200 [place] [address] SOB (shortness of breath)*; URTI (acute upper [...] asthma documented in this encounter Care Teams Farmworker Vegetable Relationship Specialty Start Date End Date Rogelio Moreira III, MD 200 [facility] [place] [address] PCP - General 04/01/07 documented as of this encounter
--- OUTSIDE RECORDS SUMMARY | 2024-03-25 01:31 | External Medical Summary | Summary of Care ---
Author Name Unknown Organization [facility] Address [address] [place] [address] Phone [phone] Care Team Providers Care Sports Bookmaker Name Role Phone Harish HOLMAN MD, Rogelio Jeffers Primary Care Provider [phone] Reason for Visit * Reason Comments Short of Breath Encounter Details Date Type Department Care Team (Late st Contact Info) Description 03/24/2024 11:40 AM EST Office Visit General Internal Medicine [facility] [place] 200 [facility] [place] [address] Petra Kendall MD 200 [place] [address] SOB (shortness of breath)*; URTI (acute upper [...] asthma documented in this encounter Care Teams Sports Bookmaker Relationship Specialty Start Date End Date Rogelio Moreira III, MD 200 [facility] [place] [address] PCP - General 04/01/07 documented as of this encounter
--- OUTSIDE RECORDS SUMMARY | 2024-03-25 01:31 | External Medical Summary | Summary of Care ---
Author Name Unknown Organization [facility] Address [address] [place] [address] Phone [phone] Care Team Providers Care Cloth Cutter Name Role Phone Harish HOLMAN MD, Rogelio Jeffers Primary Care Provider [phone] Reason for Visit * Reason Comments Short of Breath Encounter Details Date Type Department Care Team (Late st Contact Info) Description 03/24/2024 11:40 AM EST Office Visit General Internal Medicine [facility] Maile [place] 200 [facility] [place] [address] Petra Kendall MD 200 [place] [address] SOB (shortness of breath)*; URTI (acute upper respiratory infection) Allergies Active Allergy Reactions Criticality Noted Date [...] Acute upper respiratory infections of unspecified site documented in this encounter Care Teams Cloth Cutter Relationship Specialty Start Date End Date Rogelio Moreira III, MD 200 [place] [address] PCP - General 04/01/07 documented as of this encounter
--- OUTSIDE RECORDS SUMMARY | 2024-03-25 01:31 | External Medical Summary | Summary of Care ---
Author Name Unknown Organization [facility] Address [address] [place] [address] Phone [phone] Care Team Providers Care Boat Dispatcher Name Role Phone Harish HOLMAN MD, Rogelio Jeffers Primary Care Provider [phone] Reason for Visit * Reason Comments Short of Breath Encounter Details Date Type Department Care Team (Late st Contact Info) Description 03/24/2024 11:40 AM EST Office Visit General Internal Medicine [facility] [place] 200 [facility] [place] [address] Petra Kendall MD 200 [place] [address] SOB (shortness of breath)*; URTI (acute upper [...] site documented in this encounter Care Teams Boat Dispatcher Relationship Specialty Start Date End Date Rogelio Moreira III, MD 200 [place] [address] PCP - General 04/01/07 documented as of this encounter
[2024-03-25] MEDS: ACETAMINOPHEN 325 MG TAB PO PRN (06:02)
--- NOTE | 2024-03-25 07:27 | Hospitalist Progress Note ---
Date of Service March 25, 2024 Assessment & Plan (1) Acute hypoxic respiratory failure: Plan: -2/2 metapneumovirus, made worse by hx of asthma and possible restrictive pathology from obesity BNP 112 CXR 1. Bilateral upper and lower multiple patchy alveolar opacities. 2. Cardiomegaly with bilateral hilar congestion and upper lobe diversion raising concern for pulmonary edema with differential possibility of bronchopneumonia. Clinical correlation and follow-up are advised. Currently up on 4L of suppl. O2 and breath sounds diminished - posit. sputum production - schedule duoneb q6 hrs, prn q2h - methylprednisolone 40 iv q8hrs - transition to PO prednisone on DC or when approved - start levaquin - guaifenesin, flutter valve, incentive spirometry - try to wean off O2 (2) Tobacco use: Plan: -10 cigarettes a day -prn nicotine patch (3) Human metapneumovirus (hMPV) pneumonia: Plan: - as above (4) Asthma: Plan: - as above (5) Sleep apnea: Plan: -home CPAP (6) Fibromyalgia: Plan: - admitting provider reviewed home medications with patient, on significant number of medications Plan: -cut verapamil dose in half given illness -continue home psych meds (7) Hypotension: Plan: -suspect BP may run low in setting of significant medication use for fibromyalgia Plan: -monitor BP (8) Acid reflux: Plan: -continue home omeprazole (9) Obesity: Plan: -f/u with weight management outpatient (10) Insomnia: Plan: -melatonin prn Plan Thromboprophylaxis: lovenox Admission and Anticipated Discharge Date Admission Date: March 24, 2024 Subjective Pt seen in follow up of hypoxia, + metapneumovirus Currently sitting up in bed in NAD, just received breathing treatment Discussed w/ RN pt up on 4L of suppl. O2 Pt feels slightly improved, but still w/ difficulty breathing No chest pain. + cough, + sputum production Review of Systems Review of Systems: All systems reviewed & are unremarkable except as noted in Subjective Physical Exam Physical Exam: Gen: obese F in NAD HEENT: NCAT, EOMI, not icteric. External ears normal. Neck: Supple Lungs: diminished breath sounds, some expiratory wheezing CV: RRR, no edema. Abdomen: Soft, nondistended, No rebound tenderness. MSK: trace 1+ nonpitting edema bilaterally Skin: warm, dry Neuro: awake, alert, oriented, answers appropriately, speech fluent, moves extremities Results & Data Results & Data Vital Signs (Past 12 Hours) Vital Signs Temp Pulse Pulse Resp BP BP Pulse Ox 03/24/24 22:12 03/24/24 22:12 36.5 C 76 17 122/70 95 03/24/24 20:29 77 18 107/62 92 O2 Del Method O2 Flow Rate 03/24/24 22:12 Nasal Cannula 3 03/24/24 22:12 Nasal Cannula 3 03/24/24 20:29 Nasal Cannula 3 Laboratory Results 03/24/24 03/24/24 03/24/24 Range/Units 22:14 18:39 14:09 WBC 9.50 (4.8-10.8) K/ul RBC 4.23 (4.20-5.40) M/uL Hgb 13.2 (12.0-16.0) g/dl Hct 39.5 (37.0-47.0) % MCV 93.4 (80.0-100.0) fL MCH 31.2 (25.0-34.0) pg MCHC 33.4 (32.0-36.0) g/dL RDW Std Deviation 47.4 H (36.4-46.3) fL RDW Coeff of Nigel 13.8 (11.5-14.5) % Plt Count 192 (130-400) K/uL MPV 10.4 (9.4-12.4) fL Immature Gran % (Auto) 0.5 % Neut % (Auto) 84.0 % Lymph % (Auto) 7.8 % [place] % (Auto) 7.6 % Eos % (Auto) 0.0 % Baso % (Auto) 0.1 % Neut # (Auto) 7.98 H (1.40-6.50) K/uL Lymph # (Auto) 0.74 L (1.20-3.40) K/uL [place] # (Auto) 0.72 H (0.11-0.59) K/uL Eos # (Auto) 0.00 (0.00-0.50) K/uL Baso # (Auto) 0.01 (0.00-0.20) K/uL Immature Gran # (Auto) 0.05 (0.01-0.20) K/uL Sodium 139 (136-145) mmol/L Potassium 4.1 (3.5-5.1) mmol/L Chloride 108 H (98-107) mmol/L Carbon Dioxide 23 (21-32) mmol/L Anion Gap 8 (3-11) BUN 13 (6-23) mg/dl Creatinine 0.83 (0.6-1.2) mg/dl Est Cr Clr Drug Dosing Not Reportable eGFR 85.83 BUN/Creatinine Ratio 15.7 (10-20) Glucose 130 H (70-99(Fasting)) mg/dl POC Glucose 173 H (70-99) mg/dl Calcium 8.5 L (8.6-10.3) mg/dl Magnesium 1.9 (1.7-2.4) mg/dl Total Bilirubin 0.4 (0.2-1.0) mg/dl Direct Bilirubin 0.1 (0-0.2) mg/dl AST 16 (13-39) U/L ALT 11 (7-52) U/L Alkaline Phosphatase 80 (34-104) U/L Troponin I High Sens 10.2 (0-14) pg/ml B-Natriuretic Peptide 112 H (0-100) pg/ml Total Protein 8.0 (6.0-8.3) gm/dl Albumin 4.2 (3.4-5.0) gm/dl Adenovirus (PCR) Not Detected (NotDetected) B. pertussis DNA (PCR) Not Detected (NotDetected) B.parapertussis DNA PCR Not Detected (NotDetected) C. pneumoniae DNA (PCR) Not Detected (NotDetected) Coronavirus OC43 (PCR) Not Detected (NotDetected) Coronavirus HKU1 (PCR) Not Detected (NotDetected) Coronavirus 229E (PCR) Not Detected (NotDetected) SARS-CoV-2 (PCR) Not Detected (NotDetected) Coronavirus NL63 (PCR) Not Detected (NotDetected) Human Metapneumovir PCR DETECTED A (NotDetected) Influenza Type A (PCR) Not Detected (NotDetected) Influenza Type B (PCR) Not Detected (NotDetected) M. pneumoniae (PCR) Not Detected (NotDetected) Parainfluenza 1 (PCR) Not Detected (NotDetected) Parainfluenza 2 (PCR) Not Detected (NotDetected) Parainfluenza 3 (PCR) Not Detected (NotDetected) Parainfluenza 4 (PCR) Not Detected (NotDetected) RSV (PCR) Not Detected (NotDetected) Entero/Rhino (PCR) Not Detected (NotDetected) Medications Administered Current Inpatient Medications Acetaminophen (Acetaminophen 325 Mg Tab) 650 mg PO Q4H PRN PRN Reason: pain/fever Stop: 04/23/24 21:14 Last Admin: 03/25/24 06:02 Dose: 650 mg Albuterol (Albut/Ipratrop 3mg/0.5mg Neb 3 Ml Vial) 3 ml NEB Q6R PRN; Protocol PRN Reason: Shortness Of Breath Or Wheezing Stop: 04/23/24 21:14 Atorvastatin Calcium (Atorvastatin 20 Mg Tab) 20 mg PO QPM ADRI Stop: 04/23/24 21:14 Last Admin: 03/24/24 22:07 Dose: 20 mg Bupropion HCl (Bupropion Sr 100 Mg Tabcr) 100 mg PO DAILY [facility]RI Stop: 04/24/24 08:59 Buspirone HCl (Buspirone 15 Mg Tab) 30 mg PO BID [facility] Stop: 04/23/24 21:14 Last Admin: 03/24/24 22:07 Dose: 30 mg Enoxaparin Sodium (Enoxaparin Inj 40 Mg/0.4 Ml Syr) 40 mg SQ HS ADRI Stop: 04/23/24 22:59 Last Admin: 03/24/24 23:06 Dose: Not Given Melatonin (Melatonin 3 Mg Tab) 3 mg PO HS PRN PRN Reason: Insomnia Stop: 04/23/24 21:14 Miscellaneous (Remove Nicoderm Patch) 1 each N/A DAILY@0859 [facility] Stop: 04/24/24 08:58 Nicotine (Nicotine 14 Mg/24 Hr Patch) 1 patch TD QAM PRN PRN Reason: as needed for nicotine withdrawal Stop: 04/23/24 21:14 Pantoprazole Sodium (Pantoprazole 40 Mg Tab) 40 mg PO QAM [facility] Stop: 04/24/24 08:59 Polyethylene Glycol (Polyethylene (Miralax) 17 Gm Pack) 17 gm PO DAILY PRN PRN Reason: Constipation Stop: 04/23/24 21:14 Prednisone (Prednisone 50 Mg Tab) 50 mg PO DAILY [facility] Stop: 03/29/24 08:59 Pregabalin (Pregabalin 150 Mg Cap) 300 mg PO BID [facility] Stop: 04/23/24 21:14 Last Admin: 03/24/24 22:06 Dose: 300 mg Sertraline HCl (Sertraline Hcl 100 Mg Tablet) 200 mg PO QAM [facility] Stop: 04/24/24 08:59 Topiramate (Topiramate 100 Mg Tab) 200 mg PO BID [facility] Stop: 04/23/24 21:14 Last Admin: 03/24/24 22:07 Dose: 200 mg Verapamil HCl (Verapamil Hcl 120 Mg Tabcr) 120 mg PO BID [facility] Stop: 04/23/24 21:14 Last Admin: 03/24/24 22:08 Dose: 120 mg (4) Asthma Asthma complication type: unspecified Asthma persistence: persistent Asthma severity: moderate Qualified Code(s): J45.40 - Moderate persistent asthma, uncomplicated (5) Sleep apnea Sleep apnea type: unspecified type Qualified Code(s): G47.30 - Sleep apnea, unspecified (7) Hypotension Hypotension type: hypotension due to hypovolemia Qualified Code(s): E86.1 - Hypovolemia (8) Acid reflux Esophagitis presence: without esophagitis Qualified Code(s): K21.9 - Gastro- esophageal reflux disease without esophagitis (9) Obesity Obesity classification: unspecified obesity classification Obesity type: drug-induced Serious obesity comorbidity presence: with serious comorbidity Qualified Code(s): 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
[2024-03-25] MEDS: predniSONE 50 MG TAB PO SCH (07:58)
[2024-03-25] MEDS: buPROPion SR 100 MG TABCR PO SCH (07:58)
[2024-03-25] MEDS: SERTRALINE HCL 100 MG TABLET PO SCH (07:58)
[2024-03-25] MEDS: PANTOprazole 40 MG TAB PO SCH (07:59)
[2024-03-25 08:58] LABS: Hematocrit (blood only) 37.4 % (37.0-47.0); Hemoglobin 12.2 g/dl (12.0-16.0); Mean Corpuscular Hemoglobin 30.7 pg (25.0-34.0); Mean Corpuscular Hgb Conc 32.6 g/dL (32.0-36.0); Mean Corpuscular Volume 94.2 fL (80.0-100.0); Mean Platelet Volume 10.3 fL (9.4-12.4); Platelet Count 197 K/uL (130-400); RDW Coefficient of Variation 13.8 % (11.5-14.5); RDW Standard Deviation 48.7 fL (36.4-46.3); Red Blood Count 3.97 M/uL (4.20-5.40); White Blood Count 11.71 K/ul (4.8-10.8)
[2024-03-25 09:17] LABS: BUN Creatinine Ratio 31.6 (10-20); Calcium 8.3 mg/dl (8.6-10.3); Creatinine Clr Calc Pharmacy 143.4 ml/min; Magnesium 2.4 mg/dl (1.7-2.4); Phosphorus 2.5 mg/dl (2.5-4.9); Potassium 4.3 mmol/L (3.5-5.1)
[2024-03-25] MEDS: ALBUT/IPRATROP 3MG/0.5MG NEB 3 ML VIAL NEB PRN (14:38)
[2024-03-25] MEDS ORDERED: methylPREDNISolone 125 MG/2 ML VIAL IV STA (14:50)
[2024-03-25] MEDS ORDERED: ALBUT/IPRATROP 3MG/0.5MG NEB 3 ML VIAL NEB PRN (14:53)
[2024-03-25] MEDS: methylPREDNISolone 40 MG in SYRINGE 0 ML IV ONE (16:02)
[2024-03-25] MEDS: COUGH DROP (SUGAR FREE) LOZ 24 LOZ/1 BOX BUCCAL ONE (16:47)
[2024-03-25] MEDS: levoFLOXacin 750 MG TAB PO SCH (18:02)
[2024-03-25] MEDS: guaiFENesin 600 MG TABCR PO SCH (20:49)
[2024-03-25] MEDS: MELATONIN 3 MG TAB PO PRN (20:49)
[2024-03-25] MEDS: BENZONATATE 100 MG CAPSULE PO PRN (20:49)
[2024-03-25] MEDS: methylPREDNISolone 40 MG in SYRINGE 0 ML IV SCH (20:50)
[2024-03-25] MEDS ORDERED: methylPREDNISolone 125 MG/2 ML VIAL IV SCH (21:00)
[2024-03-25] MEDS: ALBUT/IPRATROP 3MG/0.5MG NEB 3 ML VIAL NEB SCH (21:10)
[2024-03-26 07:12] LABS: Hematocrit (blood only) 35.8 % (37.0-47.0); Hemoglobin 11.7 g/dl (12.0-16.0); Mean Corpuscular Hemoglobin 30.3 pg (25.0-34.0); Mean Corpuscular Hgb Conc 32.7 g/dL (32.0-36.0); Mean Corpuscular Volume 92.7 fL (80.0-100.0); Mean Platelet Volume 10.5 fL (9.4-12.4); Platelet Count 222 K/uL (130-400); RDW Coefficient of Variation 13.9 % (11.5-14.5); RDW Standard Deviation 47.6 fL (36.4-46.3); Red Blood Count 3.86 M/uL (4.20-5.40); White Blood Count 11.54 K/ul (4.8-10.8)
[2024-03-26 07:49] LABS: BUN Creatinine Ratio 33.8 (10-20); Calcium 8.5 mg/dl (8.6-10.3); Creatinine Clr Calc Pharmacy 110.5 ml/min; Magnesium 2.4 mg/dl (1.7-2.4); Phosphorus 3.1 mg/dl (2.5-4.9); Potassium 4.4 mmol/L (3.5-5.1)
--- NOTE | 2024-03-26 09:50 | Hospitalist Progress Note ---
Date of Service March 26, 2024 Assessment & Plan (1) Acute hypoxic respiratory failure: Plan: -2/2 metapneumovirus, made worse by hx of asthma and possible restrictive pathology from obesity BNP 112 CXR 1. Bilateral upper and lower multiple patchy alveolar opacities. 2. Cardiomegaly with bilateral hilar congestion and upper lobe diversion raising concern for pulmonary edema with differential possibility of bronchopneumonia. Clinical correlation and follow-up are advised. Was up on 4L of suppl. O2 and breath sounds diminished - posit. sputum production - schedule duoneb q6 hrs, prn q2h - methylprednisolone 40 iv q8hrs - transition to PO prednisone on DC or when approved - cont. Levaquin - guaifenesin, flutter valve, incentive spirometry - try to wean off O2, now on 2L (2) Tobacco use: Plan: -10 cigarettes a day -prn nicotine patch (3) Human metapneumovirus (hMPV) pneumonia: Plan: - as above (4) Asthma: Plan: - as above (5) Sleep apnea: Plan: -home CPAP (6) Fibromyalgia: Plan: - admitting provider reviewed home medications with patient, on significant number of medications Plan: -cut verapamil dose in half given illness -continue home psych meds (7) Hypotension: Plan: -suspect BP may run low in setting of significant medication use for fibromyalgia Plan: -monitor BP (8) Acid reflux: Plan: -continue home omeprazole (9) Obesity: Plan: -f/u with weight management outpatient (10) Insomnia: Plan: -melatonin prn Plan Thromboprophylaxis: lovenox Admission and Anticipated Discharge Date Admission Date: March 24, 2024 Subjective Pt seen in follow up of hypoxia, + metapneumovirus Currently sitting up in bed in NAD Pt feels slightly improved, but still w/ some difficulty breathing and productive cough No chest pain. Review of Systems Review of Systems: All systems reviewed & are unremarkable except as noted in Subjective Physical Exam Physical Exam: Gen: obese F in NAD HEENT: NCAT, EOMI, not icteric. External ears normal. Neck: Supple Lungs: diminished breath sounds, some expiratory wheezing CV: RRR, no edema. Abdomen: Soft, nondistended, No rebound tenderness. MSK: trace 1+ nonpitting edema bilaterally Skin: warm, dry Neuro: awake, alert, oriented, answers appropriately, speech fluent, moves extremities Results & Data Results & Data Vital Signs (Past 12 Hours) Vital Signs Temp Pulse Resp BP Pulse Ox O2 Del Method O2 Flow Rate 03/26/24 07:50 74 18 91 Room Air 03/26/24 07:27 36.7 C 73 16 119/75 94 Nasal Cannula 3 Laboratory Results 03/26/24 03/26/24 03/25/24 Range/Units 07:29 06:38 20:24 WBC 11.54 H (4.8-10.8) K/ul RBC 3.86 L (4.20-5.40) M/uL Hgb 11.7 L (12.0-16.0) g/dl Hct 35.8 L (37.0-47.0) % MCV 92.7 (80.0-100.0) fL MCH 30.3 (25.0-34.0) pg MCHC 32.7 (32.0-36.0) g/dL RDW Std Deviation 47.6 H (36.4-46.3) fL RDW Coeff of Nigel 13.9 (11.5-14.5) % Plt Count 222 (130-400) K/uL MPV 10.5 (9.4-12.4) fL Sodium 143 (136-145) mmol/L Potassium 4.4 (3.5-5.1) mmol/L Chloride 113 H (98-107) mmol/L Carbon Dioxide 23 (21-32) mmol/L Anion Gap 7 (3-11) BUN 25 H (6-23) mg/dl Creatinine 0.74 (0.6-1.2) mg/dl Est Cr Clr Drug Dosing 110.5 ml/min eGFR 98.50 BUN/Creatinine Ratio 33.8 H (10-20) Glucose 158 H (70-99(Fasting)) mg/dl POC Glucose 163 H 146 H (70-99) mg/dl Calcium 8.5 L (8.6-10.3) mg/dl Phosphorus 3.1 (2.5-4.9) mg/dl Magnesium 2.4 (1.7-2.4) mg/dl 03/25/24 03/25/24 Range/Units 16:42 11:20 WBC (4.8-10.8) K/ul RBC (4.20-5.40) M/uL Hgb (12.0-16.0) g/dl Hct (37.0-47.0) % MCV (80.0-100.0) fL MCH (25.0-34.0) pg MCHC (32.0-36.0) g/dL RDW Std Deviation (36.4-46.3) fL RDW Coeff of Nigel (11.5-14.5) % Plt Count (130-400) K/uL MPV (9.4-12.4) fL Sodium (136-145) mmol/L Potassium (3.5-5.1) mmol/L Chloride (98-107) mmol/L Carbon Dioxide (21-32) mmol/L Anion Gap (3-11) BUN (6-23) mg/dl Creatinine (0.6-1.2) mg/dl Est Cr Clr Drug Dosing ml/min eGFR BUN/Creatinine Ratio (10-20) Glucose (70-99(Fasting)) mg/dl POC Glucose 167 H 156 H (70-99) mg/dl Calcium (8.6-10.3) mg/dl Phosphorus (2.5-4.9) mg/dl Magnesium (1.7-2.4) mg/dl Medications Administered Current Inpatient Medications Acetaminophen (Acetaminophen 325 Mg Tab) 650 mg PO Q4H PRN PRN Reason: pain/fever Stop: 04/23/24 21:14 Last Admin: 03/25/24 20:56 Dose: 650 mg Albuterol (Albut/Ipratrop 3mg/0.5mg Neb 3 Ml Vial) 3 ml NEB Q6R [facility]; Protocol Stop: 04/24/24 18:59 Last Admin: 03/26/24 07:50 Dose: 3 ml Albuterol (Albut/Ipratrop 3mg/0.5mg Neb 3 Ml Vial) 3 ml NEB Q2H PRN; Protocol PRN Reason: Shortness Of Breath Or Wheezing Stop: 04/24/24 14:52 Atorvastatin Calcium (Atorvastatin 20 Mg Tab) 20 mg PO QPM [facility] Stop: 04/23/24 21:14 Last Admin: 03/25/24 20:49 Dose: 20 mg Benzonatate (Benzonatate 100 Mg Capsule) 100 mg PO TID PRN PRN Reason: Cough Stop: 04/24/24 20:59 Last Admin: 03/25/24 20:49 Dose: 100 mg Bupropion HCl (Bupropion Sr 100 Mg Tabcr) 100 mg PO DAILY [facility] Stop: 04/24/24 08:59 Last Admin: 03/25/24 07:58 Dose: 100 mg Buspirone HCl (Buspirone 15 Mg Tab) 30 mg PO BID [facility] Stop: 04/23/24 21:14 Last Admin: 03/25/24 20:50 Dose: 30 mg Enoxaparin Sodium (Enoxaparin Inj 40 Mg/0.4 Ml Syr) 40 mg SQ HS [facility] Stop: 04/23/24 22:59 Last Admin: 03/25/24 20:47 Dose: Not Given Guaifenesin (Guaifenesin 600 Mg Tabcr) 600 mg PO Q12 [facility] Stop: 04/24/24 20:59 Last Admin: 03/25/24 20:49 Dose: 600 mg Methylprednisolone 40 mg/ (Syringe) 0.64 mls @ 1.5 mls/min IV Q8H [facility] Stop: 04/24/24 20:59 Last Admin: 03/26/24 05:16 Dose: 1.5 mls/min Levofloxacin (Levofloxacin 750 Mg Tab) 750 mg PO DAILY@1700 [facility]; Protocol Stop: 03/30/24 16:59 Last Admin: 03/25/24 18:02 Dose: 750 mg Melatonin (Melatonin 3 Mg Tab) 3 mg PO HS PRN PRN Reason: Insomnia Stop: 04/23/24 21:14 Last Admin: 03/25/24 20:49 Dose: 3 mg Miscellaneous (Remove Nicoderm Patch) 1 each N/A DAILY@0859 [facility] Stop: 04/24/24 08:58 Last Admin: 03/25/24 07:54 Dose: Not Given Nicotine (Nicotine 14 Mg/24 Hr Patch) 1 patch TD QAM PRN PRN Reason: as needed for nicotine withdrawal Stop: 04/23/24 21:14 Pantoprazole Sodium (Pantoprazole 40 Mg Tab) 40 mg PO QAM [facility] Stop: 04/24/24 08:59 Last Admin: 03/25/24 07:59 Dose: 40 mg Polyethylene Glycol (Polyethylene (Miralax) 17 Gm Pack) 17 gm PO DAILY PRN PRN Reason: Constipation Stop: 04/23/24 21:14 Prednisone (Prednisone 50 Mg Tab) 50 mg PO DAILY [facility] Stop: 03/29/24 08:59 Last Admin: 03/25/24 07:58 Dose: 50 mg Pregabalin (Pregabalin 150 Mg Cap) 300 mg PO BID [facility] Stop: 04/23/24 21:14 Last Admin: 03/25/24 20:49 Dose: 300 mg Sertraline HCl (Sertraline Hcl 100 Mg Tablet) 200 mg PO QAM [facility] Stop: 04/24/24 08:59 Last Admin: 03/25/24 07:58 Dose: 200 mg Topiramate (Topiramate 100 Mg Tab) 200 mg PO BID [facility] Stop: 04/23/24 21:14 Last Admin: 03/25/24 20:49 Dose: 200 mg Verapamil HCl (Verapamil Hcl 120 Mg Tabcr) 120 mg PO BID [facility] Stop: 04/23/24 21:14 Last Admin: 03/25/24 20:50 Dose: 120 mg (4) Asthma Asthma severity: moderate Asthma persistence: persistent Asthma complication type: unspecified Qualified Code(s): J45.40 - Moderate persistent asthma, uncomplicated (5) Sleep apnea Sleep apnea type: unspecified type Qualified Code(s): G47.30 - Sleep apnea, unspecified (7) Hypotension Hypotension type: hypotension due to hypovolemia Qualified Code(s): E86.1 - Hypovolemia (8) Acid reflux Esophagitis presence: without esophagitis Qualified Code(s): K21.9 - Gastro- esophageal reflux disease without esophagitis (9) Obesity Obesity type: drug-induced Obesity classification: unspecified obesity classification Serious obesity comorbidity presence: with serious comorbidity Qualified Code(s): 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
[2024-03-27 06:51] LABS: Hematocrit (blood only) 36.2 % (37.0-47.0); Hemoglobin 11.6 g/dl (12.0-16.0); Mean Corpuscular Hemoglobin 30.3 pg (25.0-34.0); Mean Corpuscular Volume 94.5 fL (80.0-100.0); Mean Platelet Volume 10.9 fL (9.4-12.4); Platelet Count 237 K/uL (130-400); RDW Standard Deviation 48.8 fL (36.4-46.3); Red Blood Count 3.83 M/uL (4.20-5.40); White Blood Count 11.13 K/ul (4.8-10.8)
[2024-03-27 07:11] LABS: BUN Creatinine Ratio 35.3 (10-20); Calcium 8.5 mg/dl (8.6-10.3); Creatinine Clr Calc Pharmacy 120.2 ml/min; Magnesium 2.3 mg/dl (1.7-2.4); Phosphorus 3.5 mg/dl (2.5-4.9); Potassium 4.2 mmol/L (3.5-5.1)
--- NOTE | 2024-03-27 11:28 | Hospitalist Progress Note ---
Date of Service March 27, 2024 Assessment & Plan (1) Acute hypoxic respiratory failure: Plan: -2/2 metapneumovirus, made worse by hx of asthma and possible restrictive pathology from obesity BNP 112 CXR 1. Bilateral upper and lower multiple patchy alveolar opacities. 2. Cardiomegaly with bilateral hilar congestion and upper lobe diversion raising concern for pulmonary edema with differential possibility of bronchopneumonia. Clinical correlation and follow-up are advised. Was up on 4L of suppl. O2 and breath sounds diminished - posit. sputum production - schedule duoneb q6 hrs, prn q2h - methylprednisolone 40 iv q8hrs - transition to PO prednisone on DC or when approved - cont. Levaquin - guaifenesin, flutter valve, incentive spirometry - try to wean off O2, now on 2L-3L (2) Tobacco use: Plan: -10 cigarettes a day -prn nicotine patch (3) Human metapneumovirus (hMPV) pneumonia: Plan: - as above (4) Asthma: Plan: - as above (5) Sleep apnea: Plan: -home CPAP (6) Fibromyalgia: Plan: - admitting provider reviewed home medications with patient, on significant number of medications Plan: -cut verapamil dose in half given illness -continue home psych meds (7) Hypotension: Plan: -suspect BP may run low in setting of significant medication use for fibromyalgia Plan: -monitor BP (8) Acid reflux: Plan: -continue home omeprazole (9) Obesity: Plan: -f/u with weight management outpatient (10) Insomnia: Plan: -melatonin prn Plan Thromboprophylaxis: lovenox Admission and Anticipated Discharge Date Admission Date: March 24, 2024 Subjective Pt seen in follow up of hypoxia, + metapneumovirus Currently sitting up in bed in NAD Pt feels improved, but still w/ some difficulty breathing and productive cough, on suppl. O2 Sputum is clearing up per pt No chest pain. Review of Systems Review of Systems: All systems reviewed & are unremarkable except as noted in Subjective Physical Exam Physical Exam: Gen: obese F in NAD HEENT: NCAT, EOMI, not icteric. External ears normal. Neck: Supple Lungs: diminished breath sounds, some expiratory wheezing CV: RRR, no edema. Abdomen: Soft, nondistended, No rebound tenderness. MSK: trace 1+ nonpitting edema bilaterally Skin: warm, dry Neuro: awake, alert, oriented, answers appropriately, speech fluent, moves extremities Results & Data Results & Data Vital Signs (Past 12 Hours) Vital Signs Temp Pulse Resp BP Pulse Ox O2 Del Method O2 Flow Rate 03/27/24 10:42 52 L 14 94 Nasal Cannula 3 03/27/24 08:00 45 L 16 92 Nasal Cannula 1 03/27/24 07:32 36.9 C 50 L 18 136/82 95 Nasal Cannula 2 Laboratory Results 03/27/24 03/27/24 03/27/24 Range/Units 11:23 07:31 06:28 WBC 11.13 H (4.8-10.8) K/ul RBC 3.83 L (4.20-5.40) M/uL Hgb 11.6 L (12.0-16.0) g/dl Hct 36.2 L (37.0-47.0) % MCV 94.5 (80.0-100.0) fL MCH 30.3 (25.0-34.0) pg MCHC 32.0 (32.0-36.0) g/dL RDW Std Deviation 48.8 H (36.4-46.3) fL RDW Coeff of Nigel 14.0 (11.5-14.5) % Plt Count 237 (130-400) K/uL MPV 10.9 (9.4-12.4) fL Sodium 143 (136-145) mmol/L Potassium 4.2 (3.5-5.1) mmol/L Chloride 113 H (98-107) mmol/L Carbon Dioxide 25 (21-32) mmol/L Anion Gap 5 (3-11) BUN 24 H (6-23) mg/dl Creatinine 0.68 (0.6-1.2) mg/dl Est Cr Clr Drug Dosing 120.2 ml/min eGFR 106.04 BUN/Creatinine Ratio 35.3 H (10-20) Glucose 147 H (70-99(Fasting)) mg/dl POC Glucose 141 H 162 H (70-99) mg/dl Calcium 8.5 L (8.6-10.3) mg/dl Phosphorus 3.5 (2.5-4.9) mg/dl Magnesium 2.3 (1.7-2.4) mg/dl 01/07/1503/26/24 03/26/24 Range/Units 20:42 16:44 11:32 WBC (4.8-10.8) K/ul RBC (4.20-5.40) M/uL Hgb (12.0-16.0) g/dl Hct (37.0-47.0) % MCV (80.0-100.0) fL MCH (25.0-34.0) pg MCHC (32.0-36.0) g/dL RDW Std Deviation (36.4-46.3) fL RDW Coeff of Nigel (11.5-14.5) % Plt Count (130-400) K/uL MPV (9.4-12.4) fL Sodium (136-145) mmol/L Potassium (3.5-5.1) mmol/L Chloride (98-107) mmol/L Carbon Dioxide (21-32) mmol/L Anion Gap (3-11) BUN (6-23) mg/dl Creatinine (0.6-1.2) mg/dl Est Cr Clr Drug Dosing ml/min eGFR BUN/Creatinine Ratio (10-20) Glucose (70-99(Fasting)) mg/dl POC Glucose 193 H 208 H 162 H (70-99) mg/dl Calcium (8.6-10.3) mg/dl Phosphorus (2.5-4.9) mg/dl Magnesium (1.7-2.4) mg/dl Medications Administered Current Inpatient Medications Acetaminophen (Acetaminophen 325 Mg Tab) 650 mg PO Q4H PRN PRN Reason: pain/fever Stop: 04/23/24 21:14 Last Admin: 03/26/24 20:47 Dose: 650 mg Albuterol (Albut/Ipratrop 3mg/0.5mg Neb 3 Ml Vial) 3 ml NEB Q6R [facility]; Protocol Stop: 04/24/24 18:59 Last Admin: 03/27/24 07:58 Dose: 3 ml Albuterol (Albut/Ipratrop 3mg/0.5mg Neb 3 Ml Vial) 3 ml NEB Q2H PRN; Protocol PRN Reason: Shortness Of Breath Or Wheezing Stop: 04/24/24 14:52 Atorvastatin Calcium (Atorvastatin 20 Mg Tab) 20 mg PO QPM [facility] Stop: 04/23/24 21:14 Last Admin: 03/26/24 20:47 Dose: 20 mg Benzonatate (Benzonatate 100 Mg Capsule) 100 mg PO TID PRN PRN Reason: Cough Stop: 04/24/24 20:59 Last Admin: 03/27/24 08:51 Dose: 100 mg Bupropion HCl (Bupropion Sr 100 Mg Tabcr) 100 mg PO DAILY [facility] Stop: 04/24/24 08:59 Last Admin: 03/27/24 08:46 Dose: 100 mg Buspirone HCl (Buspirone 15 Mg Tab) 30 mg PO BID [facility] Stop: 04/23/24 21:14 Last Admin: 03/27/24 08:46 Dose: 30 mg Enoxaparin Sodium (Enoxaparin Inj 40 Mg/0.4 Ml Syr) 40 mg SQ HS [facility] Stop: 04/23/24 22:59 Last Admin: 03/26/24 20:48 Dose: Not Given Guaifenesin (Guaifenesin 600 Mg Tabcr) 600 mg PO Q12 [facility] Stop: 04/24/24 20:59 Last Admin: 03/27/24 08:47 Dose: 600 mg Methylprednisolone 40 mg/ (Syringe) 0.64 mls @ 1.5 mls/min IV Q8H [facility] Stop: 04/24/24 20:59 Last Admin: 03/27/24 05:12 Dose: 1.5 mls/min Levofloxacin (Levofloxacin 750 Mg Tab) 750 mg PO DAILY@1700 [facility]; Protocol Stop: 03/30/24 16:59 Last Admin: 03/26/24 18:00 Dose: 750 mg Melatonin (Melatonin 3 Mg Tab) 3 mg PO HS PRN PRN Reason: Insomnia Stop: 04/23/24 21:14 Last Admin: 03/26/24 20:47 Dose: 3 mg Miscellaneous (Remove Nicoderm Patch) 1 each N/A DAILY@0859 [facility] Stop: 04/24/24 08:58 Last Admin: 03/27/24 08:46 Dose: Not Given Nicotine (Nicotine 14 Mg/24 Hr Patch) 1 patch TD QAM PRN PRN Reason: as needed for nicotine withdrawal Stop: 04/23/24 21:14 Pantoprazole Sodium (Pantoprazole 40 Mg Tab) 40 mg PO QAM [facility] Stop: 04/24/24 08:59 Last Admin: 03/27/24 08:47 Dose: 40 mg Polyethylene Glycol (Polyethylene (Miralax) 17 Gm Pack) 17 gm PO DAILY PRN PRN Reason: Constipation Stop: 04/23/24 21:14 Prednisone (Prednisone 50 Mg Tab) 50 mg PO DAILY [facility] Stop: 03/29/24 08:59 Last Admin: 03/25/24 07:58 Dose: 50 mg Pregabalin (Pregabalin 150 Mg Cap) 300 mg PO BID [facility] Stop: 04/23/24 21:14 Last Admin: 03/27/24 08:45 Dose: 300 mg Sertraline HCl (Sertraline Hcl 100 Mg Tablet) 200 mg PO QAM [facility] Stop: 04/24/24 08:59 Last Admin: 03/27/24 08:47 Dose: 200 mg Topiramate (Topiramate 100 Mg Tab) 200 mg PO BID [facility] Stop: 04/23/24 21:14 Last Admin: 03/27/24 08:48 Dose: 200 mg Verapamil HCl (Verapamil Hcl 120 Mg Tabcr) 120 mg PO BID [facility] Stop: 04/23/24 21:14 Last Admin: 03/27/24 08:48 Dose: 120 mg (4) Asthma Asthma complication type: unspecified Asthma persistence: persistent Asthma severity: moderate Qualified Code(s): J45.40 - Moderate persistent asthma, uncomplicated (5) Sleep apnea Sleep apnea type: unspecified type Qualified Code(s): G47.30 - Sleep apnea, unspecified (7) Hypotension Hypotension type: hypotension due to hypovolemia Qualified Code(s): E86.1 - Hypovolemia (8) Acid reflux Esophagitis presence: without esophagitis Qualified Code(s): K21.9 - Gastro- esophageal reflux disease without esophagitis (9) Obesity Obesity classification: unspecified obesity classification Obesity type: drug-induced Serious obesity comorbidity presence: with serious comorbidity Qualified Code(s): 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
[2024-03-27] MEDS: ALBUT/IPRATROP 3MG/0.5MG NEB 3 ML VIAL NEB ONE (12:05)
[2024-03-28 07:46] LABS: Hematocrit (blood only) 37.6 % (37.0-47.0); Hemoglobin 12.3 g/dl (12.0-16.0); Mean Corpuscular Hemoglobin 30.5 pg (25.0-34.0); Mean Corpuscular Hgb Conc 32.7 g/dL (32.0-36.0); Mean Corpuscular Volume 93.3 fL (80.0-100.0); Mean Platelet Volume 10.8 fL (9.4-12.4); Platelet Count 262 K/uL (130-400); RDW Coefficient of Variation 13.5 % (11.5-14.5); RDW Standard Deviation 46.7 fL (36.4-46.3); Red Blood Count 4.03 M/uL (4.20-5.40); White Blood Count 10.65 K/ul (4.8-10.8)
[2024-03-28 08:06] LABS: BUN Creatinine Ratio 30.7 (10-20); Calcium 8.7 mg/dl (8.6-10.3); Magnesium 2.4 mg/dl (1.7-2.4); Phosphorus 3.5 mg/dl (2.5-4.9); Potassium 4.1 mmol/L (3.5-5.1)
--- NOTE | 2024-03-28 09:58 | Hospitalist Progress Note ---
Date of Service March 28, 2024 Assessment & Plan (1) Acute hypoxic respiratory failure: Plan: -2/2 metapneumovirus, made worse by hx of asthma and possible restrictive pathology from obesity BNP 112 CXR 1. Bilateral upper and lower multiple patchy alveolar opacities. 2. Cardiomegaly with bilateral hilar congestion and upper lobe diversion raising concern for pulmonary edema with differential possibility of bronchopneumonia. Clinical correlation and follow-up are advised. Was up on 4L of suppl. O2 and breath sounds diminished - posit. sputum production -> now much improved - schedule duoneb q6 hrs, prn q2h - methylprednisolone 40 iv q8hrs - transition to PO prednisone on DC or when improved - cont. Levaquin - guaifenesin, flutter valve, incentive spirometry - try to wean off O2, now on 2L-3L (2) Tobacco use: Plan: -10 cigarettes a day -prn nicotine patch (3) Human metapneumovirus (hMPV) pneumonia: Plan: - as above (4) Asthma: Plan: - as above (5) Sleep apnea: Plan: -home CPAP (6) Fibromyalgia: Plan: - admitting provider reviewed home medications with patient, on significant number of medications Plan: -cut verapamil dose in half given illness -continue home psych meds (7) Hypotension: Plan: -suspect BP may run low in setting of significant medication use for fibromyalgia Plan: -monitor BP (8) Acid reflux: Plan: -continue home omeprazole (9) Obesity: Plan: -f/u with weight management outpatient (10) Insomnia: Plan: -melatonin prn Plan Thromboprophylaxis: lovenox Admission and Anticipated Discharge Date Admission Date: March 24, 2024 Subjective Pt seen in follow up of hypoxia, + metapneumovirus Currently sitting up in bed in NAD Pt feels improved, but still w/ some difficulty breathing and on suppl. O2 Sputum is clearing up per pt No chest pain. Review of Systems Review of Systems: All systems reviewed & are unremarkable except as noted in Subjective Physical Exam Physical Exam: Gen: obese F in NAD HEENT: NCAT, EOMI, not icteric. External ears normal. Neck: Supple Lungs: diminished breath sounds, some expiratory wheezing CV: RRR, no edema. Abdomen: Soft, nondistended, No rebound tenderness. MSK: trace 1+ nonpitting edema bilaterally Skin: warm, dry Neuro: awake, alert, oriented, answers appropriately, speech fluent, moves extremities Results & Data Results & Data Vital Signs (Past 12 Hours) Vital Signs Temp Pulse Resp BP Pulse Ox O2 Del Method O2 Flow Rate 03/28/24 08:23 60 16 96 Nasal Cannula 3 03/28/24 07:40 Nasal Cannula 3 03/28/24 07:21 36.8 C 43 L 16 130/79 96 Nasal Cannula 3 Laboratory Results 03/28/24 03/28/24 03/27/24 Range/Units 07:27 07:19 20:20 WBC 10.65 (4.8-10.8) K/ul RBC 4.03 L (4.20-5.40) M/uL Hgb 12.3 (12.0-16.0) g/dl Hct 37.6 (37.0-47.0) % MCV 93.3 (80.0-100.0) fL MCH 30.5 (25.0-34.0) pg MCHC 32.7 (32.0-36.0) g/dL RDW Std Deviation 46.7 H (36.4-46.3) fL RDW Coeff of Nigel 13.5 (11.5-14.5) % Plt Count 262 (130-400) K/uL MPV 10.8 (9.4-12.4) fL Sodium 144 (136-145) mmol/L Potassium 4.1 (3.5-5.1) mmol/L Chloride 112 H (98-107) mmol/L Carbon Dioxide 26 (21-32) mmol/L Anion Gap 6 (3-11) BUN 23 (6-23) mg/dl Creatinine 0.75 (0.6-1.2) mg/dl Est Cr Clr Drug Dosing 109.0 ml/min eGFR 96.93 BUN/Creatinine Ratio 30.7 H (10-20) Glucose 148 H (70-99(Fasting)) mg/dl POC Glucose 146 H 197 H (70-99) mg/dl Calcium 8.7 (8.6-10.3) mg/dl Phosphorus 3.5 (2.5-4.9) mg/dl Magnesium 2.4 (1.7-2.4) mg/dl 03/27/24 03/27/24 Range/Units 16:32 11:23 WBC (4.8-10.8) K/ul RBC (4.20-5.40) M/uL Hgb (12.0-16.0) g/dl Hct (37.0-47.0) % MCV (80.0-100.0) fL MCH (25.0-34.0) pg MCHC (32.0-36.0) g/dL RDW Std Deviation (36.4-46.3) fL RDW Coeff of Nigel (11.5-14.5) % Plt Count (130-400) K/uL MPV (9.4-12.4) fL Sodium (136-145) mmol/L Potassium (3.5-5.1) mmol/L Chloride (98-107) mmol/L Carbon Dioxide (21-32) mmol/L Anion Gap (3-11) BUN (6-23) mg/dl Creatinine (0.6-1.2) mg/dl Est Cr Clr Drug Dosing ml/min eGFR BUN/Creatinine Ratio (10-20) Glucose (70-99(Fasting)) mg/dl POC Glucose 153 H 141 H (70-99) mg/dl Calcium (8.6-10.3) mg/dl Phosphorus (2.5-4.9) mg/dl Magnesium (1.7-2.4) mg/dl Medications Administered Current Inpatient Medications Acetaminophen (Acetaminophen 325 Mg Tab) 650 mg PO Q4H PRN PRN Reason: pain/fever Stop: 04/23/24 21:14 Last Admin: 03/28/24 07:25 Dose: 650 mg Albuterol (Albut/Ipratrop 3mg/0.5mg Neb 3 Ml Vial) 3 ml NEB Q6R [facility]; Protocol Stop: 04/24/24 18:59 Last Admin: 03/28/24 08:22 Dose: 3 ml Albuterol (Albut/Ipratrop 3mg/0.5mg Neb 3 Ml Vial) 3 ml NEB Q2H PRN; Protocol PRN Reason: Shortness Of Breath Or Wheezing Stop: 04/24/24 14:52 Atorvastatin Calcium (Atorvastatin 20 Mg Tab) 20 mg PO QPM [facility] Stop: 04/23/24 21:14 Last Admin: 03/27/24 20:20 Dose: 20 mg Benzonatate (Benzonatate 100 Mg Capsule) 100 mg PO TID PRN PRN Reason: Cough Stop: 04/24/24 20:59 Last Admin: 03/28/24 07:32 Dose: 100 mg Bupropion HCl (Bupropion Sr 100 Mg Tabcr) 100 mg PO DAILY [facility] Stop: 04/24/24 08:59 Last Admin: 03/28/24 07:25 Dose: 100 mg Buspirone HCl (Buspirone 15 Mg Tab) 30 mg PO BID [facility] Stop: 04/23/24 21:14 Last Admin: 03/28/24 07:26 Dose: 30 mg Enoxaparin Sodium (Enoxaparin Inj 40 Mg/0.4 Ml Syr) 40 mg SQ HS [facility] Stop: 04/23/24 22:59 Last Admin: 03/27/24 20:21 Dose: Not Given Guaifenesin (Guaifenesin 600 Mg Tabcr) 600 mg PO Q12 [facility] Stop: 04/24/24 20:59 Last Admin: 03/28/24 07:26 Dose: 600 mg Methylprednisolone 40 mg/ (Syringe) 0.64 mls @ 1.5 mls/min IV Q8H [facility] Stop: 04/24/24 20:59 Last Admin: 03/28/24 05:08 Dose: 1.5 mls/min Levofloxacin (Levofloxacin 750 Mg Tab) 750 mg PO DAILY@1700 [facility]; Protocol Stop: 03/30/24 16:59 Last Admin: 03/27/24 17:30 Dose: 750 mg Melatonin (Melatonin 3 Mg Tab) 3 mg PO HS PRN PRN Reason: Insomnia Stop: 04/23/24 21:14 Last Admin: 03/26/24 20:47 Dose: 3 mg Miscellaneous (Remove Nicoderm Patch) 1 each N/A DAILY@0859 [facility] Stop: 04/24/24 08:58 Last Admin: 03/28/24 07:22 Dose: 1 each Nicotine (Nicotine 14 Mg/24 Hr Patch) 1 patch TD QAM PRN PRN Reason: as needed for nicotine withdrawal Stop: 04/23/24 21:14 Pantoprazole Sodium (Pantoprazole 40 Mg Tab) 40 mg PO QAM [facility] Stop: 04/24/24 08:59 Last Admin: 03/28/24 07:26 Dose: 40 mg Polyethylene Glycol (Polyethylene (Miralax) 17 Gm Pack) 17 gm PO DAILY PRN PRN Reason: Constipation Stop: 04/23/24 21:14 Prednisone (Prednisone 50 Mg Tab) 50 mg PO DAILY [facility] Stop: 03/29/24 08:59 Last Admin: 03/25/24 07:58 Dose: 50 mg Pregabalin (Pregabalin 150 Mg Cap) 300 mg PO BID [facility] Stop: 04/23/24 21:14 Last Admin: 03/28/24 07:24 Dose: 300 mg Sertraline HCl (Sertraline Hcl 100 Mg Tablet) 200 mg PO QAM [facility] Stop: 04/24/24 08:59 Last Admin: 03/28/24 07:26 Dose: 200 mg Topiramate (Topiramate 100 Mg Tab) 200 mg PO BID [facility] Stop: 04/23/24 21:14 Last Admin: 03/28/24 07:26 Dose: 200 mg Verapamil HCl (Verapamil Hcl 120 Mg Tabcr) 120 mg PO BID [facility] Stop: 04/23/24 21:14 Last Admin: 03/28/24 07:27 Dose: 120 mg (4) Asthma Asthma severity: moderate Asthma persistence: persistent Asthma complication type: unspecified Qualified Code(s): J45.40 - Moderate persistent asthma, uncomplicated (5) Sleep apnea Sleep apnea type: unspecified type Qualified Code(s): G47.30 - Sleep apnea, unspecified (7) Hypotension Hypotension type: hypotension due to hypovolemia Qualified Code(s): E86.1 - Hypovolemia (8) Acid reflux Esophagitis presence: without esophagitis Qualified Code(s): K21.9 - Gastro- esophageal reflux disease without esophagitis (9) Obesity Obesity type: drug-induced Obesity classification: unspecified obesity classification Serious obesity comorbidity presence: with serious comorbidity Qualified Code(s): 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
[2024-03-29 07:56] VITALS: BP 129/74; RESP 16; TEMP 97.5
[2024-03-29 08:30] LABS: Hematocrit (blood only) 39.1 % (37.0-47.0); Hemoglobin 12.9 g/dl (12.0-16.0); Mean Corpuscular Hemoglobin 30.2 pg (25.0-34.0); Mean Corpuscular Volume 91.6 fL (80.0-100.0); Mean Platelet Volume 10.9 fL (9.4-12.4); Platelet Count 297 K/uL (130-400); RDW Coefficient of Variation 13.2 % (11.5-14.5); RDW Standard Deviation 44.7 fL (36.4-46.3); Red Blood Count 4.27 M/uL (4.20-5.40); White Blood Count 11.32 K/ul (4.8-10.8)
[2024-03-29 08:31] LABS: BUN Creatinine Ratio 31.5 (10-20); Calcium 8.8 mg/dl (8.6-10.3); Magnesium 2.2 mg/dl (1.7-2.4); Phosphorus 3.3 mg/dl (2.5-4.9); Potassium 4.2 mmol/L (3.5-5.1)
[2024-03-29 11:41] VITALS: PULSE 81; O2SAT 95
--- NOTE | 2024-03-29 11:47 | Discharge Summary ---
Date of Service March 29, 2024 Admission HPI Per Admitting Provider 48-year-old female with past medical history of asthma, prediabetes, obesity, fibromyalgia, GERD, hyperlipidemia, sleep apnea who presents for shortness of breath. Shortness of breath has been ongoing for the past few days. At first she thought this was something that was going to get better on its own and decided not to come in but then it got worse. Has been around sick people. Smokes half a pack of tobacco daily. Other than shortness of breath she has also been feeling weak and fatigued. Denies chest pain nausea vomiting or any other symptoms. Is on quite a few medications for her fibromyalgia. Admission Exam Per Admitting Provider Gen: A&O x3 slightly uncomfortable HEENT: NCAT, EOMI, not icteric. External ears normal. No rhinorrhea. Moist mucous membranes. Neck: Supple, full range of motion, no observable masses, No meningeal sign. JVP not elevated Lungs: expiratory wheezing and rhonchi noted bilaterally CV: RRR, no edema. Abdomen: Soft, nondistended, No rebound tenderness. MSK: trace 1+ nonpitting edema bilaterally Skin: No rashes, petechiae, lesions. Normal color per patient. Neuro: Normal Gait, Grossly intact. Psych: Appropriate for situation. Principal Diagnosis Acute hypoxic respiratory failure secondary to metapneumovirus, in the setting of asthma Discharge Exam Gen: obese F in NAD HEENT: NCAT, EOMI, not icteric. External ears normal. Neck: Supple Lungs: air movement improved. some expiratory wheezing- improved CV: RRR, no edema. Abdomen: Soft, nondistended, No rebound tenderness. MSK: trace 1+ nonpitting edema bilaterally Skin: warm, dry Neuro: awake, alert, oriented, answers appropriately, speech fluent, moves extremities Discharge Data Allergies Allergy/AdvReac Type Severity Reaction Status Date / Time cephalexin Allergy Intermediate Rash Verified 03/24/24 20:44 [From Panixine DisperDose] metaxalone Allergy Intermediate Rash Verified 03/24/24 20:44 naproxen Allergy Unknown Rash, Verified 03/24/24 20:44 itchy and nausea pseudoephedrine AdvReac Unknown "heart Verified 03/24/24 20:44 races" Consultations 03/24/24 18:59 ED Decision to Admit Stat Hospital Course (1) Acute hypoxic respiratory failure: -2/2 metapneumovirus, made worse by hx of asthma and possible restrictive pathology from obesity BNP 112 CXR 1. Bilateral upper and lower multiple patchy alveolar opacities. 2. Cardiomegaly with bilateral hilar congestion and upper lobe diversion raising concern for pulmonary edema with differential possibility of bronchopneumonia. Clinical correlation and follow-up are advised. Was up on 4L of suppl. O2 and breath sounds diminished - posit. sputum production -> now much improved - scheduled duoneb q6 hrs, prn q2h - methylprednisolone 40 iv q8hrs - transition to PO prednisone on DC - cont. Levaquin - guaifenesin, flutter valve, incentive spirometry - try to wean off O2 - 2 step this AM - pt does not require any O2 - Pt is feeling well, will DC today. PCP follow up on 04/04/2023 (2) Tobacco use: -10 cigarettes a day -prn nicotine patch (3) Human metapneumovirus (hMPV) pneumonia: - as above (4) Asthma: - as above (5) Sleep apnea: -home CPAP (6) Fibromyalgia: - admitting provider reviewed home medications with patient, on significant number of medications Plan: -cut verapamil dose in half given illness, resume [employer] dose on DC -continue home psych meds (7) Hypotension: -suspect BP may run low in setting of significant medication use for fibromyalgia Plan: -monitor BP - BP at goal (8) Acid reflux: -continue home omeprazole (9) Obesity: -f/u with weight management outpatient (10) Insomnia: -melatonin prn Total Time Total Time Spent Total Time Spent (In Minutes): 40 Discharge Plan Discharge Items Patient Disposition: Home - Self-Care Reason For Visit: SOB Discharge Diagnosis: Acute hypoxic respiratory failure secondary to metapneumovirus, in the setting of asthma Activity: Per Instructions section Non-emergency contact: Primary Care Provider Call non-emergency contact if: you have any medication questions and your symptoms worsen Follow-up/Referrals: Rogelio Moreira MD [Primary Care Provider] - 04/04/24 3:20 pm (Date & Time 04/04/2024 3:20 PM Provider: Alison Bello MD Department: [facility] ) Diet: Regular Addtl Attending Provider Instructions: Follow up with your primary care doctor within 1 week. The appointment was scheduled for you for 04/04/2023. Finish steroid taper with prednisone - take 40 mg (2 tabs) for 2 more days, then take 20 mg (1 tab) for 3 more days. Finish antibiotic treatment with Levaquin (1 more dose today at 5pm). Take guaifenesin, and use flutter valve, incentive spirometry. You can take tessalon perles for cough. Pending Studies at Discharge: No Stand-Alone Forms: My [facility], Smoking Cessation Medications and DC Order Prescriptions: New guaifenesin [Mucinex] 600 mg Tablet Extended Release 12hr 600 mg PO Q12 5 Days Qty: 10 0RF benzonatate 100 mg Capsule 100 mg PO TID PRN (Reason: cough) 5 Days Qty: 14 0RF levofloxacin 750 mg Tablet 750 mg PO DAILY@1700 Qty: 1 0RF prednisone 20 mg tablet 20 mg PO UD Qty: 7 0RF Rx Instructions: Take 2 tabs for next 2 days, then take 1 tab for next 3 days Continued Emgality Syringe 120 mg/mL syringe 240 mg subcut ONCE Qty: 2 0RF Emgality Pen 120 mg/mL pen injector 120 mg subcut ONCE Qty: 1 6RF topiramate 200 mg tablet 200 mg PO BID Qty: 60 5RF verapamil 240 mg tablet extended release 240 mg PO BID Qty: 60 5RF (DME) Shower Chair Misc See Rx Instructions .Route Qty: 1 0RF Rx Instructions: As directed bupropion HCl [Wellbutrin SR] 100 mg tablet sustained-release 12 hr 100 mg PO DAILY Nurtec ODT 75 mg tablet,disintegrating 75 mg PO DAILY PRN (Reason: migraine headache) Qty: 8 5RF meclizine 25 mg tablet 25 mg PO TID PRN (Reason: dizziness) 90 Days Qty: 90 5RF azelastine 137 mcg (0.1 %) aerosol,spray 2 sprays intranasal BID Qty: 1 fluticasone propionate 50 mcg/actuation spray,suspension 2 sprays intranasal BID Patient Comments: TWICE A DAY sertraline 100 mg tablet 250 mg PO QAM omeprazole 40 mg capsule,delayed release(DR/EC) 40 mg PO QAM aspirin 81 mg Tablet,Delayed Release (Dr/Ec) 81 mg PO QAM buspirone 30 mg tablet 30 mg PO BID ibuprofen 200 mg Tablet 600 mg PO QPM pregabalin 300 mg capsule 300 mg PO BID atorvastatin 20 mg tablet 20 mg PO QPM Discharge Orders: Discharge Order (Routine); Ordered 03/29/24 Ordered By: Julio Goodman Admission Data Admit Date/Time: 03/24/24 19:02 Attending Provider: Julio Goodman Admit Provider: Arthur Polk Primary Care Provider: Rogelio Moreira Other Providers: Arthur Polk
== END 2024-03-29 13:39 | disposition home or self-care (01) | DRG 193 ==
LOC: ED 13:17 → 3W 19:02 → SUATTDRO 19:02 → 3W 20:29